=== PATIENT | male | born 1995 | race Two or more races ===

== ENCOUNTER 2017-03-28 23:37 | Emergency (ER) | payer MEDICAID ==
[~2017-03-28] VITALS: Ht 172.7 cm; Wt 71.7 kg
[~2017-03-28 23:37] MED LIST: INSLANTI SC; INSUPOW
[2017-03-28] MEDS ORDERED: diphenhdrAMINE HCL 25 MG CAP PO ONE (23:53)
[2017-03-29 00:01] VITALS: BP 135/95
[2017-03-29] MEDS ORDERED: diphenhdrAMINE HCL 25 MG CAP PO ONE (00:15)
== END 2017-03-29 01:13 | disposition left against medical advice (07) ==
LOC: ER 23:47
DX: T78.40XA Allergy, unspecified, initial encounter (principal); X58.XXXA Exposure to other specified factors, initial encounter; Z53.21 Procedure and treatment not carried out due to patient leaving prior to being seen by health care provider
CPT/HCPCS: 82962

== ENCOUNTER 2017-04-16 12:52 | Inpatient (IN) | payer MEDICAID ==
[~2017-04-16] VITALS: Ht 170.2 cm; Wt 61.2 kg
[2017-04-16] MEDS ORDERED: SODIUM CHLORIDE 0.9% 1,000 ML IV ONE ×2 (13:07→15:00)
[2017-04-16 14:07] LABS: Basophils # (auto) 0 uL; Basophils % (auto) 0.4 % (0.0-2.0); Eosinophils # (auto) 0 uL; Eosinophils % (auto) 0.2 % (0.0-7.0); Hematocrit 42.9 % (41.0-53.0); Hemoglobin 14.4 g/dL (13.5-17.5); Lymphocytes # (auto) 1.1 uL; Lymphocytes % (auto) 10.9 % (10.0-50.0); Mean Corpuscular Hemoglobin 31.1 pg (28.0-32.0); Mean Corpuscular Hgb Conc. 33.6 g/dL (32.0-36.0); Mean Corpuscular Volume 92.6 fL (80.0-100.0); Monocytes # (auto) 0.4 uL; Monocytes % (auto) 4.4 % (0.0-12.0); Neutrophils # (auto) 8.2 uL; Neutrophils % (auto) 84.1 % (37.0-80.0); Nucleated Red Blood Cells % 0.1 %; Platelet Count (auto) 232 10^3/uL (140-450); Red Cell Distribution Width 12.5 % (11.8-14.3); White Blood Cell 9.8 10^3/uL (4.4-10.8)
[2017-04-16 14:30] LABS: Albumin 3.6 g/dL (3.4-5.0); Bilirubin, Total 0.9 mg/dL (0.2-1.0); Calcium 8.1 mg/dL (8.5-10.1); Magnesium 1.7 mg/dL (1.6-2.6); Potassium 4.3 mmol/L (3.5-5.1); Total Protein 7.8 g/dL (6.4-8.2)
[2017-04-16 14:40] LABS: Urine RBC None Seen /hpf (0 - 3)
[2017-04-16] MEDS ORDERED: HYDROcodone-ACET 5/325MG TAB PO PRN (14:45)
[2017-04-16] MEDS ORDERED: NITROGLYCERIN 0.4 MG SL TAB SL PRN (14:45)
[2017-04-16] MEDS ORDERED: ONDANSETRON HCL 4 MG/2 ML VIAL IV PRN (14:45)
[2017-04-16] MEDS ORDERED: MORPHINE SULFATE 10 MG/ML INJ 1ML SDV IV PRN (14:45)
[2017-04-16] MEDS ORDERED: ACETAMINOPHEN 325 MG TAB PO PRN (14:45)
[2017-04-16] MEDS ORDERED: DOCUSATE SOD 100 MG CAP PO PRN (14:45)
[2017-04-16] MEDS ORDERED: TEMAZEPAM 15 MG CAP PO PRN (14:45)
[2017-04-16 14:52] LABS: Urine Bilirubin Negative (Negative); Urine Blood Negative /uL (Negative); Urine Color Yellow (Yellow); Urine Glucose 4+ mg/dL (Normal); Urine Ketone 4+ (Negative); Urine Nitrite Negative (Negative); Urine Urobilinogen Normal (Negative); Urine pH 5.5 (5.0-8.0)
[2017-04-16] MEDS ORDERED: HYDROmorphone HCL 2 MG/ML VL IV PRN (15:00)
[2017-04-16] MEDS ORDERED: DEXTROSE (50%) 50ML SYRG IV PRN (15:00)
[2017-04-16] MEDS ORDERED: FAMOTIDINE 20 MG TAB PO SCH (15:15)
[2017-04-16 15:42] VITALS: BP 131/66
[2017-04-16 16:00] LABS: Base Excess -4.8 mmol/L (-2.0-2.0); Blood 02Sat 97.6 % (96-100); Blood COHb 0.3 % (0.5-1.5); Blood MetHb 0.4 % (0.0-1.5); HCO3 18.6 mmol/L (22-26.0); HHb 2.4 % (0.0-5.0); MODE NASAL CANNULA; O2Hb 96.9 % (94.0-97.0); PCO2 30.3 mmHg (35.0-45.0); PCO2(T) 30.3 mmHg (35.0-45.0); Room 1019-ERT; Sample Type Arterial; pH 7.407 (7.350-7.450)
[2017-04-16] MEDS ORDERED: SODIUM CHLORIDE 0.9% 1,000 ML IV SCH (16:00)
[2017-04-16] MEDS ORDERED: ACCU-CHEK COMFORT CURVE STRIP VI SCH (17:00)
[2017-04-16] MEDS ORDERED: InsuLIN REG 1unit/0.01ml Soln (100units/ml) SC SCH ×2 (17:00→22:00)
[2017-04-17] MEDS ORDERED: INSULIN DETEMIR(LEVEMIR) 1unit/0.01ml Soln (100units/ml) SC SCH (07:00)
[2017-04-17] MEDS ORDERED: MULTIPLE VITAMIN TAB PO SCH (10:00)
== END 2017-04-16 17:20 | disposition left against medical advice (07) | DRG 816 ==
LOC: ER 12:52 → EDBD 12:52 → TELE 12:53
PROVIDERS: ADMIT Internal Medicine; ATTEND Internal Medicine
DX: T62.91XA Toxic effect of unspecified noxious substance eaten as food, accidental (unintentional), initial encounter (principal); E11.65 Type 2 diabetes mellitus with hyperglycemia; E86.0 Dehydration; Z53.21 Procedure and treatment not carried out due to patient leaving prior to being seen by health care provider; Z79.4 Long term (current) use of insulin; Z83.3 Family history of diabetes mellitus; Z88.1 Allergy status to other antibiotic agents; Z88.0 Allergy status to penicillin; Y92.89 Other specified places as the place of occurrence of the external cause
CPT/HCPCS: 36415; 36600; 71010; 80053; 81001; 82805; 82962; 83036; 83735; 85025; 94761; 96360; 96361

== ENCOUNTER 2017-05-22 15:36 | Emergency (ER) | payer MEDICAID ==
[~2017-05-22] VITALS: Ht 172.7 cm; Wt 70.3 kg
[2017-05-22 15:49] VITALS: BP 145/89
== END 2017-05-22 16:33 | disposition home or self-care (01) ==
LOC: ER 15:39
DX: E11.9 Type 2 diabetes mellitus without complications (principal); Z88.1 Allergy status to other antibiotic agents; Z88.0 Allergy status to penicillin; Z88.8 Allergy status to other drugs, medicaments and biological substances; Z76.0 Encounter for issue of repeat prescription; Z79.4 Long term (current) use of insulin; F17.210 Nicotine dependence, cigarettes, uncomplicated

== ENCOUNTER 2017-07-20 20:05 | Emergency (ER) | payer MEDICAID ==
[~2017-07-20] VITALS: Ht 170.2 cm; Wt 56.7 kg
[2017-07-20 20:54] LABS: Basophils # (auto) 0.1 uL; Basophils % (auto) 0.4 % (0.0-2.0); Eosinophils # (auto) 0 uL; Eosinophils % (auto) 0.1 % (0.0-7.0); Hematocrit 43.7 % (41.0-53.0); Hemoglobin 14.8 g/dL (13.5-17.5); Lymphocytes # (auto) 1.6 uL; Lymphocytes % (auto) 12.9 % (10.0-50.0); Mean Corpuscular Hemoglobin 30.6 pg (28.0-32.0); Mean Corpuscular Hgb Conc. 33.9 g/dL (32.0-36.0); Mean Corpuscular Volume 90.4 fL (80.0-100.0); Monocytes # (auto) 0.6 uL; Monocytes % (auto) 4.6 % (0.0-12.0); Neutrophils # (auto) 10.2 uL; Platelet Count (auto) 238 10^3/uL (140-450); Red Blood Cells 4.84 10^6/uL (4.5-5.90); Red Cell Distribution Width 12.1 % (11.8-14.3); White Blood Cell 12.5 10^3/uL (4.4-10.8)
[2017-07-20 21:14] LABS: Urine Bacteria NONE SEEN /hpf (None Seen); Urine Blood Negative /uL (Negative); Urine Specific Gravity 1.027 (1.001-1.035); Urine WBC <1 /hpf (0 - 3)
[2017-07-20 21:29] LABS: BUN/Creatinine Ratio 12.3; Bilirubin, Total 0.9 mg/dL (0.2-1.0); Calcium 8.6 mg/dL (8.5-10.1); Magnesium 2.1 mg/dL (1.6-2.6); Potassium 3.7 mmol/L (3.5-5.1); Total Protein 8.5 g/dL (6.4-8.2)
[2017-07-20 21:29] LABS: Alcohol, Urine < 3.0 mg/dL (0-5); Amphetamine Screen, Urine NEGATIVE (NEGATIVE); Barbiturate Scree,Urine NEGATIVE (NEGATIVE); Benzodiazephine Screen, Urine NEGATIVE (NEGATIVE); Cannabinoid Screen, Urine POSITIVE (NEGATIVE); Cocaine Screen, Urine NEGATIVE (NEGATIVE); Opiate Scree,Urine NEGATIVE (NEGATIVE); Phencyclidine Screen, Urine NEGATIVE (NEGATIVE)
[2017-07-20] MEDS ORDERED: MORPHINE SULFATE 10 MG/ML INJ 1ML SDV IV ONE (21:30)
[2017-07-20] MEDS ORDERED: InsuLIN REG 1unit/0.01ml Soln (100units/ml) IV ONE (21:30)
[2017-07-20] MEDS ORDERED: ONDANSETRON HCL 4 MG/2 ML VIAL IV ONE (21:30)
[2017-07-20] MEDS ORDERED: MORPHINE SULFATE 4 MG/ML SYR/VIAL ONE (21:42)
[2017-07-20 23:11] VITALS: BP 118/68
== END 2017-07-20 23:15 | disposition home or self-care (01) ==
LOC: EDBD 20:05 → ER 20:05
DX: R07.9 Chest pain, unspecified (principal); R68.84 Jaw pain; E11.65 Type 2 diabetes mellitus with hyperglycemia; E78.5 Hyperlipidemia, unspecified; F17.210 Nicotine dependence, cigarettes, uncomplicated; Z79.4 Long term (current) use of insulin; Z88.0 Allergy status to penicillin; Z88.1 Allergy status to other antibiotic agents; Z88.8 Allergy status to other drugs, medicaments and biological substances
CPT/HCPCS: 36415; 71045; 80053; 80307; 81001; 82962; 83735; 85025; 93005; 96374; 96375; 99285; J2270; J2405

== ENCOUNTER 2017-07-22 14:36 | Emergency (ER) | payer MEDICAID ==
[~2017-07-22] VITALS: Ht 177.8 cm; Wt 68.0 kg
[2017-07-22 14:48] VITALS: BP 129/95
[2017-07-22] MEDS ORDERED: ONDANSETRON HCL 4 MG/2 ML VIAL ONE (21:07)
== END 2017-07-22 18:06 | disposition left against medical advice (07) ==
LOC: EDBD 14:36 → ER 14:36
DX: R53.1 Weakness (principal); R11.2 Nausea with vomiting, unspecified; Z53.21 Procedure and treatment not carried out due to patient leaving prior to being seen by health care provider
CPT/HCPCS: J2405

== ENCOUNTER 2017-07-22 20:57 | Inpatient (IN) | payer MEDICAID ==
[~2017-07-22] VITALS: Ht 172.7 cm; Wt 57.5 kg
[2017-07-22] MEDS ORDERED: ONDANSETRON HCL 4 MG/2 ML VIAL IV ONE (21:30)
[2017-07-22] MEDS ORDERED: SODIUM CHLORIDE 0.9% 1,000 ML IV ONE (21:30)
[2017-07-22 21:50] LABS: Basophils # (auto) 0 uL; Basophils % (auto) 0.4 % (0.0-2.0); Eosinophils # (auto) 0 uL; Eosinophils % (auto) 0.5 % (0.0-7.0); Hematocrit 40.6 % (41.0-53.0); Hemoglobin 13.5 g/dL (13.5-17.5); Lymphocytes % (auto) 22.1 % (10.0-50.0); Mean Corpuscular Hgb Conc. 33.4 g/dL (32.0-36.0); Mean Corpuscular Volume 92.9 fL (80.0-100.0); Monocytes # (auto) 0.5 uL; Monocytes % (auto) 5.2 % (0.0-12.0); Neutrophils # (auto) 6.7 uL; Neutrophils % (auto) 71.8 % (37.0-80.0); Platelet Count (auto) 252 10^3/uL (140-450); Red Blood Cells 4.37 10^6/uL (4.5-5.90); Red Cell Distribution Width 12.3 % (11.8-14.3); White Blood Cell 9.3 10^3/uL (4.4-10.8)
[2017-07-22] MEDS ORDERED: PROMETHAZINE HCL 25 MG/ML 1ML IV ONE ×2 (22:00→23:30)
[2017-07-22 22:07] LABS: Albumin 3.7 g/dL (3.4-5.0); BUN/Creatinine Ratio 12.1; Calcium 7.7 mg/dL (8.5-10.1); Potassium 3.4 mmol/L (3.5-5.1); Total Protein 7.4 g/dL (6.4-8.2)
[2017-07-22] MEDS ORDERED: InsuLIN R (HUMAN) 100 UNITS in SODIUM CHL 0.9% 99 ML IV SCH (22:21)
[2017-07-22] MEDS ORDERED: ACCU-CHEK COMFORT CURVE STRIP VI SCH (22:30)
[2017-07-22] MEDS ORDERED: DEXTROSE (50%) 50ML SYRG IV PRN (22:30)
[2017-07-23] MEDS ORDERED: NITROGLYCERIN 0.4 MG SL TAB SL PRN
[2017-07-23] MEDS ORDERED: TEMAZEPAM 15 MG CAP PO PRN
[2017-07-23] MEDS ORDERED: DEXTROSE (50%) 50ML SYRG IV PRN
[2017-07-23] MEDS ORDERED: MORPHINE SULF INJ 2 MG/ML SYRINGE 1ML IV PRN
[2017-07-23] MEDS: InsuLIN R (HUMAN) 100 UNITS in SODIUM CHL 0.9% 99 ML IV SCH ×2 (00:24→23:55)
[2017-07-23] MEDS: ACCU-CHEK COMFORT CURVE STRIP VI SCH ×16 (00:24→22:28)
[2017-07-23 00:31] LABS: BUN/Creatinine Ratio 11.1; Calcium 8.2 mg/dL (8.5-10.1); Potassium 4.5 mmol/L (3.5-5.1)
[2017-07-23] MEDS: ONDANSETRON HCL 4 MG/2 ML VIAL IV PRN ×5 (02:22→19:10)
[2017-07-23] MEDS ORDERED: SODIUM CHLORIDE 0.9% 500 ML IV ONE (03:45)
[2017-07-23] MEDS ORDERED: SODIUM CHLORIDE 0.9% 1,000 ML IV SCH (03:55)
[2017-07-23] MEDS ORDERED: PROMETHAZINE HCL 25 MG/ML 1ML IV ONE (04:15)
[2017-07-23] MEDS ORDERED: ALUM & MAG HYDROX-SIMETH LIQ(MAALOX) 30 ML PO ONE (04:45)
[2017-07-23] MEDS ORDERED: DONNATAL 5ml ORAL Elix (BELLADONNA ALK-PHENOBARB) PO ONE (04:45)
[2017-07-23] MEDS ORDERED: LIDOCAINE VISCOUS 2% 15ML UD PO ONE (04:45)
[2017-07-23] MEDS: SODIUM CHLORIDE 0.9% 1,000 ML IV SCH ×3 (05:45→19:16)
[2017-07-23 05:55] LABS: Basophils # (auto) 0 uL; Basophils % (auto) 0.1 % (0.0-2.0); Eosinophils # (auto) 0 uL; Hematocrit 43.2 % (41.0-53.0); Hemoglobin 14.5 g/dL (13.5-17.5); Lymphocytes # (auto) 1.2 uL; Lymphocytes % (auto) 4.8 % (10.0-50.0); Mean Corpuscular Hemoglobin 30.6 pg (28.0-32.0); Mean Corpuscular Hgb Conc. 33.7 g/dL (32.0-36.0); Mean Corpuscular Volume 90.9 fL (80.0-100.0); Monocytes # (auto) 0.9 uL; Monocytes % (auto) 3.7 % (0.0-12.0); Neutrophils # (auto) 22.7 uL; Neutrophils % (auto) 91.4 % (37.0-80.0); Platelet Count (auto) 276 10^3/uL (140-450); Red Blood Cells 4.75 10^6/uL (4.5-5.90); Red Cell Distribution Width 12.1 % (11.8-14.3); White Blood Cell 24.9 10^3/uL (4.4-10.8)
[2017-07-23 06:21] LABS: Albumin 3.9 g/dL (3.4-5.0); BUN/Creatinine Ratio 10.3; Bilirubin, Total 0.6 mg/dL (0.2-1.0); Calcium 8.2 mg/dL (8.5-10.1); Total Protein 8.3 g/dL (6.4-8.2)
[2017-07-23] MEDS: PANTOPRAZOLE 40 MG/10 ML VIAL IV SCH (09:23)
[2017-07-23] MEDS ORDERED: INSULIN LANTUS (GLARGINE) 1 /0.01ml (100units/ml) SC ONE (12:45)
[2017-07-23 13:53] LABS: Calcium 8.9 mg/dL (8.5-10.1); Potassium 3.9 mmol/L (3.5-5.1)
[2017-07-23 18:20] LABS: Potassium 3.9 mmol/L (3.5-5.1)
[2017-07-23 18:21] LABS: BUN/Creatinine Ratio 8.2; Calcium 8.5 mg/dL (8.5-10.1)
[2017-07-23] MEDS: HYDROcodone-ACET 5/325MG TAB PO PRN (19:10)
[2017-07-23 22:50] LABS: Urine Bacteria NONE SEEN /hpf (None Seen); Urine Blood TRACE /uL (Negative); Urine Hyaline Cast FEW /lpf (0 - 2); Urine Mucus FEW (None Seen); Urine Specific Gravity 1.025 (1.001-1.035); Urine WBC 2 /hpf (0 - 3)
[2017-07-23 23:02] LABS: Alcohol, Urine < 3.0 mg/dL (0-5); Amphetamine Screen, Urine NEGATIVE (NEGATIVE); Barbiturate Scree,Urine NEGATIVE (NEGATIVE); Benzodiazephine Screen, Urine NEGATIVE (NEGATIVE); Cannabinoid Screen, Urine POSITIVE (NEGATIVE); Cocaine Screen, Urine NEGATIVE (NEGATIVE); Opiate Scree,Urine NEGATIVE (NEGATIVE); Phencyclidine Screen, Urine NEGATIVE (NEGATIVE)
[2017-07-24] MEDS ORDERED: PROMETHAZINE HCL 25 MG/ML 1ML IV ONE (00:50)
[2017-07-24] MEDS ORDERED: PROMETHAZINE HCL 25 MG/ML 1ML ONE (00:58)
[2017-07-24] MEDS: ACCU-CHEK COMFORT CURVE STRIP VI SCH ×14 (01:50→22:26)
[2017-07-24] MEDS: SODIUM CHLORIDE 0.9% 1,000 ML IV SCH ×3 (01:55→20:00)
[2017-07-24 07:46] LABS: Basophils # (auto) 0 uL; Basophils % (auto) 0.2 % (0.0-2.0); Eosinophils # (auto) 0 uL; Eosinophils % (auto) 0.1 % (0.0-7.0); Hematocrit 37.6 % (41.0-53.0); Hemoglobin 12.8 g/dL (13.5-17.5); Lymphocytes # (auto) 1.9 uL; Lymphocytes % (auto) 9.7 % (10.0-50.0); Mean Corpuscular Hemoglobin 30.5 pg (28.0-32.0); Mean Corpuscular Volume 89.7 fL (80.0-100.0); Monocytes # (auto) 1.1 uL; Monocytes % (auto) 5.5 % (0.0-12.0); Neutrophils # (auto) 16.3 uL; Neutrophils % (auto) 84.5 % (37.0-80.0); Nucleated Red Blood Cells % 0.1 %; Platelet Count (auto) 259 10^3/uL (140-450); Red Blood Cells 4.19 10^6/uL (4.5-5.90); Red Cell Distribution Width 12.1 % (11.8-14.3); White Blood Cell 19.2 10^3/uL (4.4-10.8)
[2017-07-24 08:07] LABS: Albumin 3.2 g/dL (3.4-5.0); BUN/Creatinine Ratio 7.8; Bilirubin, Total 0.7 mg/dL (0.2-1.0); Magnesium 1.9 mg/dL (1.6-2.6); Potassium 3.3 mmol/L (3.5-5.1); Total Protein 6.9 g/dL (6.4-8.2)
[2017-07-24] MEDS: PROMETHAZINE HCL 25 MG/ML 1ML IV PRN ×3 (08:40→22:26)
[2017-07-24] MEDS: PANTOPRAZOLE 40 MG/10 ML VIAL IV SCH (09:22)
[2017-07-24] MEDS ORDERED: MAGNESIUM SULFATE 1GM/100ML 100 ML IV ONE (10:00)
[2017-07-24] MEDS ORDERED: INSULIN LANTUS (GLARGINE) 1 /0.01ml (100units/ml) SC ONE (10:00)
[2017-07-24] MEDS ORDERED: SODIUM CHLORIDE 0.9% 1,000 ML IV SCH (10:00)
[2017-07-24] MEDS: POTASSIUM CHL 20MEQ/100ML 100 ML IV SCH ×2 (11:24→13:00)
[2017-07-24] MEDS ORDERED: DEXTROSE (50%) 50ML SYRG IV PRN ×2 (11:45→14:00)
[2017-07-24] MEDS: InsuLIN REG 1unit/0.01ml Soln (100units/ml) SC SCH ×2 (12:00→14:05)
[2017-07-24] MEDS: METOCLOPRAMIDE HCL 5MG/ml INJ 2ml VIAL IV SCH (12:41)
[2017-07-24 13:37] LABS: BUN/Creatinine Ratio 6.8; Calcium 7.8 mg/dL (8.5-10.1); Potassium 3.5 mmol/L (3.5-5.1)
[2017-07-24] MEDS: InsuLIN R (HUMAN) 100 UNITS in SODIUM CHL 0.9% 99 ML IV SCH (14:08)
[2017-07-24] MEDS ORDERED: ACCU-CHEK COMFORT CURVE STRIP VI SCH (15:00)
[2017-07-24] MEDS ORDERED: SODIUM CHLORIDE 0.9% 500 ML IV ONE (16:15)
[2017-07-24] MEDS: HYDROcodone-ACET 5/325MG TAB PO PRN ×2 (17:21→22:27)
[2017-07-24 20:40] LABS: Calcium 7.6 mg/dL (8.5-10.1); Potassium 3.3 mmol/L (3.5-5.1)
[2017-07-25] MEDS: METOCLOPRAMIDE HCL 5MG/ml INJ 2ml VIAL IV SCH ×4 (00:16→18:07)
[2017-07-25] MEDS: ACCU-CHEK COMFORT CURVE STRIP VI SCH ×10 (02:03→21:09)
[2017-07-25 02:37] LABS: Calcium 7.8 mg/dL (8.5-10.1)
[2017-07-25] MEDS: SODIUM CHLORIDE 0.9% 1,000 ML IV SCH ×3 (02:38→13:23)
[2017-07-25] MEDS: PROMETHAZINE HCL 25 MG/ML 1ML IV PRN ×2 (04:30→10:18)
[2017-07-25 05:44] LABS: Basophils # (auto) 0 uL; Basophils % (auto) 0.2 % (0.0-2.0); Eosinophils # (auto) 0 uL; Eosinophils % (auto) 0.3 % (0.0-7.0); Hematocrit 35.3 % (41.0-53.0); Lymphocytes # (auto) 0.9 uL; Lymphocytes % (auto) 7.1 % (10.0-50.0); Mean Corpuscular Hemoglobin 30.5 pg (28.0-32.0); Mean Corpuscular Hgb Conc. 33.9 g/dL (32.0-36.0); Mean Corpuscular Volume 89.8 fL (80.0-100.0); Monocytes # (auto) 0.7 uL; Monocytes % (auto) 5.3 % (0.0-12.0); Neutrophils # (auto) 11.5 uL; Neutrophils % (auto) 87.1 % (37.0-80.0); Platelet Count (auto) 202 10^3/uL (140-450); Red Blood Cells 3.93 10^6/uL (4.5-5.90); Red Cell Distribution Width 12.1 % (11.8-14.3); White Blood Cell 13.2 10^3/uL (4.4-10.8)
[2017-07-25 06:10] LABS: BUN/Creatinine Ratio 4.3; Calcium 7.1 mg/dL (8.5-10.1); Magnesium 1.8 mg/dL (1.6-2.6)
[2017-07-25] MEDS: InsuLIN R (HUMAN) 100 UNITS in SODIUM CHL 0.9% 99 ML IV SCH ×2 (08:06→10:16)
[2017-07-25] MEDS: PANTOPRAZOLE 40 MG/10 ML VIAL IV SCH (10:18)
[2017-07-25] MEDS ORDERED: INSULIN LANTUS (GLARGINE) 1 /0.01ml (100units/ml) SC ONE (11:00)
[2017-07-25] MEDS ORDERED: POTASSIUM CHL 10% (20 MEQ/15ML) 15ml ORAL SOLN PO ONE (12:15)
[2017-07-25] MEDS ORDERED: MAGNESIUM SULFATE 1GM/100ML 100 ML IV ONE (12:15)
[2017-07-25] MEDS ORDERED: DEXTROSE (50%) 50ML SYRG IV PRN ×2 (12:30)
[2017-07-25] MEDS ORDERED: InsuLIN REG 1unit/0.01ml Soln (100units/ml) SC SCH ×2 (14:00→16:00)
[2017-07-25] MEDS ORDERED: InsuLIN REG 1unit/0.01ml Soln (100units/ml) SC ONE (14:00)
[2017-07-25] MEDS ORDERED: ACCU-CHEK COMFORT CURVE STRIP VI SCH ×2 (14:00)
[2017-07-25 16:22] LABS: BUN/Creatinine Ratio 3.3; Calcium 7.6 mg/dL (8.5-10.1)
[2017-07-25] MEDS: InsuLIN REG 1unit/0.01ml Soln (100units/ml) SC SCH ×2 (18:00→21:10)
[2017-07-25] MEDS: ACETAMINOPHEN 325 MG TAB PO PRN (21:11)
[2017-07-26] VITALS (7 sets, daily range): BP systolic 126–145; BP diastolic 68–84
[2017-07-26] MEDS: ACCU-CHEK COMFORT CURVE STRIP VI SCH ×6 (00:09→22:05)
[2017-07-26] MEDS: METOCLOPRAMIDE HCL 5MG/ml INJ 2ml VIAL IV SCH ×2 (00:09→06:00)
[2017-07-26] MEDS: InsuLIN REG 1unit/0.01ml Soln (100units/ml) SC SCH ×6 (00:14→22:06)
[2017-07-26] MEDS: SODIUM CHLORIDE 0.9% 1,000 ML IV SCH ×2 (00:14→12:30)
[2017-07-26 06:35] LABS: BUN/Creatinine Ratio 2.4; Calcium 7.7 mg/dL (8.5-10.1); Magnesium 2.1 mg/dL (1.6-2.6)
[2017-07-26 06:39] LABS: Potassium 2.7 mmol/L (3.5-5.1)
[2017-07-26 06:48] LABS: Basophils # (auto) 0 uL; Basophils % (auto) 0.4 % (0.0-2.0); Eosinophils # (auto) 0.2 uL; Eosinophils % (auto) 2.1 % (0.0-7.0); Hematocrit 36.9 % (41.0-53.0); Hemoglobin 12.8 g/dL (13.5-17.5); Lymphocytes # (auto) 0.6 uL; Lymphocytes % (auto) 7.8 % (10.0-50.0); Mean Corpuscular Hgb Conc. 34.8 g/dL (32.0-36.0); Mean Corpuscular Volume 89.2 fL (80.0-100.0); Monocytes # (auto) 0.6 uL; Monocytes % (auto) 7.2 % (0.0-12.0); Neutrophils # (auto) 6.6 uL; Neutrophils % (auto) 82.5 % (37.0-80.0); Platelet Count (auto) 182 10^3/uL (140-450); Red Blood Cells 4.14 10^6/uL (4.5-5.90); Red Cell Distribution Width 12.1 % (11.8-14.3)
[2017-07-26] MEDS: INSULIN LANTUS (GLARGINE) 1 /0.01ml (100units/ml) SC SCH (07:00)
[2017-07-26] MEDS ORDERED: POTASSIUM CHLORIDE 40 MEQ, LIDOCAINE 1% (LOCAL ANESTH.) 4 ML in SODIUM CHL 0.9% 100 ML IV ONE (07:30)
[2017-07-26] MEDS: PROMETHAZINE HCL 25 MG/ML 1ML IV PRN (09:57)
[2017-07-26] MEDS: PANTOPRAZOLE 40 MG/10 ML VIAL IV SCH (09:57)
[2017-07-26] MEDS: LORATADINE 10 MG TAB PO SCH (09:58)
[2017-07-26] MEDS ORDERED: POTASSIUM CHL 20 Meq TABLET PO ONE ×2 (10:00→12:30)
[2017-07-26] MEDS: METOCLOPRAMIDE HCL 10 MG TAB PO SCH ×2 (13:36→17:52)
[2017-07-26] MEDS: ACETAMINOPHEN 325 MG TAB PO PRN (15:17)
[2017-07-26] MEDS: SALINE 0.65 % NASAL SPRAY 45ML BOTTLE EACHNOSTRI SCH (22:05)
[2017-07-27] MEDS: METOCLOPRAMIDE HCL 10 MG TAB PO SCH ×4 (00:18→17:54)
[2017-07-27] MEDS: ACCU-CHEK COMFORT CURVE STRIP VI SCH ×6 (01:57→21:59)
[2017-07-27] MEDS: InsuLIN REG 1unit/0.01ml Soln (100units/ml) SC SCH ×6 (02:03→21:59)
[2017-07-27 04:51] VITALS: BP 140/83
[2017-07-27] MEDS: SODIUM CHLORIDE 0.9% 1,000 ML IV SCH ×2 (05:02→23:15)
[2017-07-27] MEDS: HYDROcodone-ACET 5/325MG TAB PO PRN (06:19)
[2017-07-27] MEDS: INSULIN LANTUS (GLARGINE) 1 /0.01ml (100units/ml) SC SCH (06:43)
[2017-07-27 07:11] LABS: Basophils # (auto) 0.1 uL; Basophils % (auto) 0.8 % (0.0-2.0); Eosinophils # (auto) 0.1 uL; Eosinophils % (auto) 1.2 % (0.0-7.0); Hematocrit 39.4 % (41.0-53.0); Hemoglobin 13.5 g/dL (13.5-17.5); Mean Corpuscular Hemoglobin 30.5 pg (28.0-32.0); Mean Corpuscular Hgb Conc. 34.3 g/dL (32.0-36.0); Mean Corpuscular Volume 89.1 fL (80.0-100.0); Monocytes # (auto) 0.4 uL; Monocytes % (auto) 6.6 % (0.0-12.0); Neutrophils # (auto) 5.1 uL; Neutrophils % (auto) 76.4 % (37.0-80.0); Nucleated Red Blood Cells % 0.1 %; Platelet Count (auto) 179 10^3/uL (140-450); Red Blood Cells 4.42 10^6/uL (4.5-5.90); Red Cell Distribution Width 12.3 % (11.8-14.3); White Blood Cell 6.7 10^3/uL (4.4-10.8)
[2017-07-27 07:27] LABS: BUN/Creatinine Ratio 6.7; Calcium 7.8 mg/dL (8.5-10.1)
[2017-07-27 07:36] LABS: Potassium 2.9 mmol/L (3.5-5.1)
[2017-07-27 09:00] VITALS: BP 140/80
[2017-07-27] MEDS: PANTOPRAZOLE 40 MG/10 ML VIAL IV SCH (09:19)
[2017-07-27] MEDS: SALINE 0.65 % NASAL SPRAY 45ML BOTTLE EACHNOSTRI SCH ×3 (09:19→21:59)
[2017-07-27] MEDS: LORATADINE 10 MG TAB PO SCH (09:19)
[2017-07-27 13:00] VITALS: BP 147/97
[2017-07-27] MEDS: ACETAMINOPHEN 325 MG TAB PO PRN (14:08)
[2017-07-27] MEDS: POTASSIUM CHL 20 Meq TABLET PO SCH ×2 (16:32→21:59)
[2017-07-27 17:00] VITALS: BP 134/71
[2017-07-27 20:00] VITALS: BP 128/74
[2017-07-27 22:25] VITALS: BP 128/74
[2017-07-28] MEDS: METOCLOPRAMIDE HCL 10 MG TAB PO SCH ×3 (00:39→12:00)
[2017-07-28] MEDS: HYDROcodone-ACET 5/325MG TAB PO PRN (00:40)
[2017-07-28] MEDS: ACCU-CHEK COMFORT CURVE STRIP VI SCH ×3 (02:18→10:00)
[2017-07-28] MEDS: InsuLIN REG 1unit/0.01ml Soln (100units/ml) SC SCH ×3 (02:19→10:41)
[2017-07-28 05:07] VITALS: BP 131/69
[2017-07-28 05:58] LABS: Basophils # (auto) 0 uL; Basophils % (auto) 0.2 % (0.0-2.0); Eosinophils # (auto) 0.1 uL; Eosinophils % (auto) 0.9 % (0.0-7.0); Hematocrit 37.1 % (41.0-53.0); Hemoglobin 12.9 g/dL (13.5-17.5); Lymphocytes # (auto) 1.6 uL; Lymphocytes % (auto) 24.9 % (10.0-50.0); Mean Corpuscular Hemoglobin 30.9 pg (28.0-32.0); Mean Corpuscular Hgb Conc. 34.7 g/dL (32.0-36.0); Mean Corpuscular Volume 88.8 fL (80.0-100.0); Monocytes # (auto) 0.7 uL; Monocytes % (auto) 11.6 % (0.0-12.0); Neutrophils % (auto) 62.4 % (37.0-80.0); Nucleated Red Blood Cells % 0.1 %; Platelet Count (auto) 192 10^3/uL (140-450); Red Blood Cells 4.17 10^6/uL (4.5-5.90); Red Cell Distribution Width 11.9 % (11.8-14.3); White Blood Cell 6.3 10^3/uL (4.4-10.8)
[2017-07-28 06:08] LABS: BUN/Creatinine Ratio 10.5; Calcium 7.8 mg/dL (8.5-10.1)
[2017-07-28] MEDS: INSULIN LANTUS (GLARGINE) 1 /0.01ml (100units/ml) SC SCH (06:47)
[2017-07-28 08:48] VITALS: BP 147/96
[2017-07-28] MEDS: SALINE 0.65 % NASAL SPRAY 45ML BOTTLE EACHNOSTRI SCH (10:00)
[2017-07-28] MEDS: POTASSIUM CHL 20 Meq TABLET PO SCH (10:40)
[2017-07-28] MEDS: PANTOPRAZOLE 40 MG/10 ML VIAL IV SCH (10:40)
[2017-07-28] MEDS: LORATADINE 10 MG TAB PO SCH (10:40)
[2017-07-28] MEDS: ACETAMINOPHEN 325 MG TAB PO PRN (10:56)
[2017-07-28 11:53] VITALS: BP 132/84
[2017-07-28] MEDS ORDERED: SODIUM CHLORIDE 0.9% 1,000 ML IV SCH (12:00)
== END 2017-07-28 12:40 | disposition left against medical advice (07) | DRG 420 ==
LOC: EDBD 20:57 → ER 20:57 → TELE 20:58 → TELE-EAST 07-25 17:49
PROVIDERS: ADMIT Nurse Practitioner; ATTEND Internal Medicine
DX: E10.10 Type 1 diabetes mellitus with ketoacidosis without coma (principal); N17.0 Acute kidney failure with tubular necrosis; E86.0 Dehydration; Z91.19 Patient's noncompliance with other medical treatment and regimen; E87.6 Hypokalemia; F17.210 Nicotine dependence, cigarettes, uncomplicated; K29.70 Gastritis, unspecified, without bleeding; D72.829 Elevated white blood cell count, unspecified; R63.0 Anorexia; F12.10 Cannabis abuse, uncomplicated; E78.5 Hyperlipidemia, unspecified; Z53.21 Procedure and treatment not carried out due to patient leaving prior to being seen by health care provider; Z88.1 Allergy status to other antibiotic agents; Z88.0 Allergy status to penicillin; Z68.1 Body mass index [BMI] 19.9 or less, adult; Z88.8 Allergy status to other drugs, medicaments and biological substances; Z83.3 Family history of diabetes mellitus
CPT/HCPCS: 36415; 36600; 71045; 80048; 80053; 80061; 80307; 80320; 81001; 82010; 82805; 82962; 83036; 83735; 84132; 85025; 87040; 93005; 96361; 96365; 96367; 96375; C9113; J1815; J2001; J2405; J3480

== ENCOUNTER 2020-07-25 19:34 | Inpatient (IN) | payer MEDICAID ==
[~2020-07-25] VITALS: Ht 172.7 cm; Wt 56.8 kg
[2020-07-25] MEDS: SODIUM CHLORIDE 0.9% 1,000 ML IV SCH ×2 (01:40→22:54)
[2020-07-25] MEDS ORDERED: ONDANSETRON HCL 4 MG/2 ML VIAL IV ONE ×2 (19:45→22:30)
[2020-07-25] MEDS ORDERED: SODIUM CHLORIDE 0.9% 1,000 ML IV ONE (19:45)
[2020-07-25] MEDS ORDERED: ONDANSETRON HCL 4 MG/2 ML VIAL ONE (20:03)
[2020-07-25 20:56] LABS: Basophils # (auto) 0.1 10 ^3/uL (0-0.2); Basophils % (auto) 0.6 % (0.0-2.0); Eosinophils # (auto) 0.1 10 ^3/uL (0-0.8); Eosinophils % (auto) 0.4 % (0.0-7.0); Hematocrit 43.9 % (41.0-53.0); Hemoglobin 14.8 g/dL (13.5-17.5); Lymphocytes # (auto) 2.2 10 ^3/uL (0.4-5.4); Lymphocytes % (auto) 15.9 % (10.0-50.0); Mean Corpuscular Hemoglobin 31.5 pg (28.0-32.0); Mean Corpuscular Hgb Conc. 33.7 g/dL (32.0-36.0); Mean Corpuscular Volume 93.4 fL (80.0-100.0); Monocytes # (auto) 0.6 10 ^3/uL (0-1.3); Monocytes % (auto) 4.1 % (0.0-12.0); Platelet Count (auto) 394 10^3/uL (140-450); Red Cell Distribution Width 13.2 % (11.8-14.3)
[2020-07-25 21:01] LABS: Alanine Aminotransferase 133 U/L (16-61); Albumin 4.4 g/dL (3.4-5.0); Anion Gap 21 (5-15); Aspartate Aminotransferase 95 U/L (15-37); Blood Urea Nitrogen 22 mg/dL (7-18); Calcium 9.4 mg/dL (8.5-10.1); Carbon Dioxide 17 mmol/L (21-32); Chloride 92 mmol/L (98-107); GFR African American 74 mL/min; GFR Non-African American 61 mL/min; Magnesium 2.1 mg/dL (1.6-2.6); Potassium 3.9 mmol/L (3.5-5.1); Sodium 130 mmol/L (136-145)
[2020-07-25 21:04] LABS: Alkaline Phosphatase 194 U/L (45-117); Bilirubin, Total 1.2 mg/dL (0.2-1.0); Total Protein 9.6 g/dL (6.4-8.2)
[2020-07-25 21:31] LABS: Glucose 543 mg/dL (74-106)
[2020-07-25] MEDS ORDERED: INSULIN LANTUS (GLARGINE) 1 /0.01ml (100units/ml) SC ONE (21:45)
[2020-07-25] MEDS ORDERED: DEXTROSE (50%) 50ML SYRG IV PRN (21:45)
[2020-07-25] MEDS ORDERED: InsuLIN REG 1unit/0.01ml Soln (100units/ml) ONE (22:30)
[2020-07-25] MEDS: InsuLIN R (HUMAN) 100 UNITS in SODIUM CHL 0.9% 99 ML IV SCH ×2 (22:52→23:57)
[2020-07-25] MEDS: ACCU-CHEK COMFORT CURVE STRIP VI SCH ×2 (22:53→23:57)
[2020-07-25 23:09] LABS: BUN/Creatinine Ratio 18.6; Potassium 3.7 mmol/L (3.5-5.1)
[2020-07-26] MEDS ORDERED: NITROGLYCERIN 0.4 MG SL TAB SL PRN (00:30)
[2020-07-26] MEDS ORDERED: MORPHINE SULF INJ 2 MG/ML SYRINGE 1ML IV PRN (00:30)
[2020-07-26] MEDS ORDERED: DEXTROSE (50%) 50ML SYRG IV PRN ×2 (00:45→11:45)
[2020-07-26] MEDS: InsuLIN R (HUMAN) 100 UNITS in SODIUM CHL 0.9% 99 ML IV SCH ×4 (01:10→04:36)
[2020-07-26] MEDS: POTASSIUM CHL 20MEQ/100ML 100 ML IV SCH ×2 (01:12→04:22)
[2020-07-26] MEDS: D5W/SOD CHL 0.45%/KCL 20MEQ 1,000 ML IV SCH ×3 (01:39→14:05)
[2020-07-26] MEDS: ACCU-CHEK COMFORT CURVE STRIP VI SCH ×12 (01:39→20:00)
[2020-07-26 04:01] LABS: Calcium 8.8 mg/dL (8.5-10.1); Potassium 4.1 mmol/L (3.5-5.1)
[2020-07-26 04:03] LABS: BUN/Creatinine Ratio 16.8
[2020-07-26] MEDS: ONDANSETRON HCL 4 MG/2 ML VIAL IV PRN ×2 (06:25→10:51)
[2020-07-26] MEDS: SODIUM CHLORIDE 0.9% 1,000 ML IV SCH ×3 (06:38→20:05)
[2020-07-26 08:06] LABS: Basophils # (auto) 0.1 10 ^3/uL (0-0.2); Basophils % (auto) 0.4 % (0.0-2.0); Eosinophils # (auto) 0 10 ^3/uL (0-0.8); Eosinophils % (auto) 0.1 % (0.0-7.0); Hematocrit 35.2 % (41.0-53.0); Lymphocytes # (auto) 1.3 10 ^3/uL (0.4-5.4); Lymphocytes % (auto) 10.5 % (10.0-50.0); Mean Corpuscular Hemoglobin 31.1 pg (28.0-32.0); Mean Corpuscular Volume 91.4 fL (80.0-100.0); Monocytes # (auto) 0.6 10 ^3/uL (0-1.3); Monocytes % (auto) 4.6 % (0.0-12.0); Neutrophils # (auto) 10.4 10 ^3/uL (1.6-8.6); Neutrophils % (auto) 84.4 % (37.0-80.0); Platelet Count (auto) 323 10^3/uL (140-450); Red Blood Cells 3.85 10^6/uL (4.5-5.90); Red Cell Distribution Width 13.4 % (11.8-14.3); White Blood Cell 12.4 10^3/uL (4.4-10.8)
[2020-07-26 08:27] LABS: Calcium 8.3 mg/dL (8.5-10.1); Potassium 4.1 mmol/L (3.5-5.1)
[2020-07-26] MEDS ORDERED: INSU100I27 SC (11:27)
[2020-07-26] MEDS ORDERED: METO25TA93 PO (11:27)
[2020-07-26] MEDS ORDERED: INSLISPI SC (11:34)
[2020-07-26] MEDS ORDERED: INSULIN LANTUS (GLARGINE) 1 /0.01ml (100units/ml) SC ONE (11:45)
[2020-07-26] MEDS: InsuLIN REG 1unit/0.01ml Soln (100units/ml) SC SCH ×2 (14:10→20:34)
[2020-07-26] MEDS ORDERED: ACETAMINOPHEN 650 MG RECT SUPP PR PRN (15:00)
[2020-07-26] MEDS ORDERED: ACETAMINOPHEN 325 MG TAB PO PRN (15:15)
[2020-07-26 20:13] LABS: BUN/Creatinine Ratio 10.3; Calcium 8.5 mg/dL (8.5-10.1); Potassium 3.6 mmol/L (3.5-5.1)
[2020-07-26 22:40] LABS: BUN/Creatinine Ratio 9.9; Calcium 8.5 mg/dL (8.5-10.1); Potassium 3.3 mmol/L (3.5-5.1)
[2020-07-27] VITALS: BP 145/79
[2020-07-27] MEDS: ACCU-CHEK COMFORT CURVE STRIP VI SCH ×4 (00:13→12:00)
[2020-07-27] MEDS: SODIUM CHLORIDE 0.9% 1,000 ML IV SCH ×2 (02:45→10:12)
[2020-07-27] MEDS: InsuLIN REG 1unit/0.01ml Soln (100units/ml) SC SCH ×4 (04:00→12:00)
[2020-07-27 06:31] LABS: Basophils # (auto) 0.1 10 ^3/uL (0-0.2); Basophils % (auto) 0.7 % (0.0-2.0); Eosinophils # (auto) 0.1 10 ^3/uL (0-0.8); Hematocrit 34.5 % (41.0-53.0); Hemoglobin 12.1 g/dL (13.5-17.5); Lymphocytes # (auto) 2.4 10 ^3/uL (0.4-5.4); Lymphocytes % (auto) 27.7 % (10.0-50.0); Mean Corpuscular Hemoglobin 31.8 pg (28.0-32.0); Mean Corpuscular Hgb Conc. 35.1 g/dL (32.0-36.0); Mean Corpuscular Volume 90.5 fL (80.0-100.0); Monocytes # (auto) 0.7 10 ^3/uL (0-1.3); Monocytes % (auto) 7.7 % (0.0-12.0); Neutrophils # (auto) 5.5 10 ^3/uL (1.6-8.6); Neutrophils % (auto) 62.9 % (37.0-80.0); Platelet Count (auto) 295 10^3/uL (140-450); Red Blood Cells 3.81 10^6/uL (4.5-5.90); White Blood Cell 8.7 10^3/uL (4.4-10.8)
[2020-07-27 08:00] VITALS: BP_SYST 110; BP_SYST 149; BP_DIAS 65; BP_DIAS 99
[2020-07-27] MEDS ORDERED: POTASSIUM EFFERVESENT TAB 25 MEQ PO ONE (09:00)
[2020-07-27] MEDS ORDERED: INSULIN LANTUS (GLARGINE) 1 /0.01ml (100units/ml) SC SCH (10:00)
== END 2020-07-27 13:40 | disposition left against medical advice (07) | DRG 420 ==
LOC: ER 19:34 → EDSEX 19:34 → EDBD 19:34 → TELE 19:35 → TELE-CENTR 07-26 18:42
PROVIDERS: ADMIT Hospitalist; ATTEND Hospitalist
DX: E10.10 Type 1 diabetes mellitus with ketoacidosis without coma (principal); Z20.822 Contact with and (suspected) exposure to COVID-19; F17.210 Nicotine dependence, cigarettes, uncomplicated; Z82.49 Family history of ischemic heart disease and other diseases of the circulatory system; Z83.3 Family history of diabetes mellitus; Z88.0 Allergy status to penicillin; Z88.8 Allergy status to other drugs, medicaments and biological substances; Z53.29 Procedure and treatment not carried out because of patient's decision for other reasons; N17.9 Acute kidney failure, unspecified
CPT/HCPCS: 36415; 36600; 80048; 80053; 82010; 82805; 82962; 83036; 83690; 83735; 84443; 85025; 87426; 93005; 99291; G0378; J1815; J2405; J3480

== ENCOUNTER 2020-08-02 09:53 | Emergency (ER) | payer MEDICAID ==
[~2020-08-02] VITALS: Ht 172.7 cm; Wt 59.0 kg
[~2020-08-02 09:53] MED LIST changes: -INSLANTI SC; +INSLISPI SC; -INSUPOW
[2020-08-02 10:34] VITALS: BP 142/72
[2020-08-02] MEDS ORDERED: IBUPROFEN 800 MG TAB PO ONE (10:45)
== END 2020-08-02 11:20 | disposition home or self-care (01) ==
LOC: ER 09:53
DX: S62.512A Displaced fracture of proximal phalanx of left thumb, initial encounter for closed fracture (principal); E11.9 Type 2 diabetes mellitus without complications; E78.5 Hyperlipidemia, unspecified; F17.210 Nicotine dependence, cigarettes, uncomplicated; Z88.0 Allergy status to penicillin; Z88.1 Allergy status to other antibiotic agents; Z79.899 Other long term (current) drug therapy; X58.XXXA Exposure to other specified factors, initial encounter; Y93.89 Activity, other specified; Y92.89 Other specified places as the place of occurrence of the external cause; Y99.8 Other external cause status
CPT/HCPCS: 29125; 73130

== ENCOUNTER 2022-07-28 11:36 | Inpatient (IN) | payer MEDICAID ==
[~2022-07-28] VITALS: Ht 172.7 cm; Wt 61.7 kg
[2022-07-28 13:05] LABS: Urine Bacteria NONE SEEN /hpf (None Seen); Urine Blood Negative /uL (Negative); Urine Specific Gravity 1.015 (1.001-1.035); Urine WBC <1 /hpf (0 - 3)
[2022-07-28] MEDS ORDERED: SODIUM CHLORIDE 0.9% 1,000 ML IV ONE ×3 (13:30→19:15)
[2022-07-28 14:02] LABS: Basophils # (auto) 0.1 10 ^3/uL (0-0.2); Basophils % (auto) 0.6 % (0.0-2.0); Eosinophils # (auto) 0.1 10 ^3/uL (0-0.8); Eosinophils % (auto) 0.6 % (0.0-7.0); Hematocrit 34.9 % (41.0-53.0); Hemoglobin 11.8 g/dL (13.5-17.5); Lymphocytes # (auto) 1.5 10 ^3/uL (0.4-5.4); Lymphocytes % (auto) 16.5 % (10.0-50.0); Mean Corpuscular Hemoglobin 30.7 pg (28.0-32.0); Mean Corpuscular Hgb Conc. 33.8 g/dL (32.0-36.0); Mean Corpuscular Volume 90.9 fL (80.0-100.0); Monocytes # (auto) 0.6 10 ^3/uL (0-1.3); Monocytes % (auto) 6.1 % (0.0-12.0); Neutrophils # (auto) 7.1 10 ^3/uL (1.6-8.6); Neutrophils % (auto) 76.2 % (37.0-80.0); Nucleated Red Blood Cells % 0.2 %; Red Blood Cells 3.84 10^6/uL (4.5-5.90); Red Cell Distribution Width 12.5 % (11.8-14.3); White Blood Cell 9.3 10^3/uL (4.4-10.8)
[2022-07-28 14:10] LABS: Calcium 8.5 mg/dL (8.5-10.1)
[2022-07-28 14:14] LABS: BUN/Creatinine Ratio 11.5; Bilirubin, Total 0.4 mg/dL (0.2-1.0); Total Protein 8.1 g/dL (6.4-8.2)
[2022-07-28 14:17] LABS: Potassium 5.8 mmol/L (3.5-5.1)
[2022-07-28] MEDS ORDERED: CALCIUM CHL 100MG/ML 500 MG in D5W 5% 100 ML IV ONE (15:00)
[2022-07-28] MEDS ORDERED: ALBUTEROL SULF 2.5 MG/0.5ML(0.5%) NEB SOLN NEB ONE (15:00)
[2022-07-28] MEDS ORDERED: SODIUM BICARBONATE 8.4 % INJ 50ML VIAL IV ONE (15:00)
[2022-07-28] MEDS ORDERED: InsuLIN REG 1unit/0.01ml Soln (100units/ml) IV ONE (18:00)
[2022-07-28 18:48] LABS: BUN/Creatinine Ratio 11.9; Calcium 8.8 mg/dL (8.5-10.1); Potassium 4.5 mmol/L (3.5-5.1)
[2022-07-28] MEDS ORDERED: METOCLOPRAMIDE HCL 5MG/ml INJ 2ml VIAL IV ONE (19:15)
[2022-07-28] MEDS ORDERED: LORazepam 2MG/ML-1ML VIAL IV ONE ×2 (20:30→21:15)
[2022-07-28] MEDS ORDERED: DOCUSATE SOD 100 MG CAP PO PRN (22:30)
[2022-07-28] MEDS ORDERED: ACETAMINOPHEN 325 MG TAB PO PRN (22:30)
[2022-07-28] MEDS ORDERED: LORazepam 2MG/ML-1ML VIAL IV PRN (22:30)
[2022-07-28] MEDS ORDERED: ONDANSETRON HCL 4 MG/2 ML VIAL IV PRN (22:30)
[2022-07-28] MEDS ORDERED: DEXTROSE (50%) 50ML SYRG IV PRN (22:30)
[2022-07-28] MEDS ORDERED: NITROGLYCERIN 0.4 MG SL TAB SL PRN (22:30)
[2022-07-28] MEDS ORDERED: HYDROcodone-ACET 5/325MG TAB PO PRN (22:30)
[2022-07-28] MEDS ORDERED: hydrALAZINE HCL 20 MG/ML VL IV PRN (22:30)
[2022-07-28] MEDS ORDERED: SODIUM CHLORIDE 0.9% 1,000 ML IV SCH (22:30)
[2022-07-28] MEDS ORDERED: MORPHINE SULFATE INJ 2 MG/ml SYRG IV PRN (22:30)
[2022-07-29] MEDS: InsuLIN REG 1unit/0.01ml Soln (100units/ml) SC SCH ×4 (00:07→12:45)
[2022-07-29] MEDS: ACCU-CHEK COMFORT CURVE STRIP VI SCH ×4 (00:07→12:39)
[2022-07-29] MEDS ORDERED: DEXTROSE (50%) 50ML SYRG IV PRN (04:45)
[2022-07-29 05:37] LABS: Basophils # (auto) 0.1 10 ^3/uL (0-0.2); Basophils % (auto) 0.6 % (0.0-2.0); Eosinophils # (auto) 0.1 10 ^3/uL (0-0.8); Hematocrit 30.5 % (41.0-53.0); Hemoglobin 10.3 g/dL (13.5-17.5); Lymphocytes # (auto) 2.6 10 ^3/uL (0.4-5.4); Lymphocytes % (auto) 27.9 % (10.0-50.0); Mean Corpuscular Hemoglobin 30.5 pg (28.0-32.0); Mean Corpuscular Hgb Conc. 33.8 g/dL (32.0-36.0); Mean Corpuscular Volume 90.1 fL (80.0-100.0); Monocytes # (auto) 0.8 10 ^3/uL (0-1.3); Monocytes % (auto) 8.2 % (0.0-12.0); Neutrophils # (auto) 5.7 10 ^3/uL (1.6-8.6); Neutrophils % (auto) 62.3 % (37.0-80.0); Nucleated Red Blood Cells % 0.1 %; Red Blood Cells 3.39 10^6/uL (4.5-5.90); Red Cell Distribution Width 12.5 % (11.8-14.3); White Blood Cell 9.1 10^3/uL (4.4-10.8)
[2022-07-29 05:53] LABS: Albumin 3.4 g/dL (3.4-5.0); Calcium 8.5 mg/dL (8.5-10.1)
[2022-07-29 05:56] LABS: BUN/Creatinine Ratio 12.3; Bilirubin, Total 0.3 mg/dL (0.2-1.0); Total Protein 6.9 g/dL (6.4-8.2)
[2022-07-29 10:10] LABS: Alcohol, Urine < 3.0 mg/dL (0-10); Amphetamine Screen, Urine NEGATIVE (NEGATIVE); Barbiturate Scree,Urine NEGATIVE (NEGATIVE); Benzodiazephine Screen, Urine NEGATIVE (NEGATIVE); Cannabinoid Screen, Urine POSITIVE (NEGATIVE); Opiate Scree,Urine NEGATIVE (NEGATIVE); Phencyclidine Screen, Urine NEGATIVE (NEGATIVE)
[2022-07-29 10:20] LABS: Cocaine Screen, Urine NEGATIVE (NEGATIVE)
[2022-07-29 14:00] VITALS: BP 147/89
== END 2022-07-29 14:22 | disposition home or self-care (01) | DRG 420 ==
LOC: ER 11:36 → TELE 22:24
PROVIDERS: ADMIT Nurse Practitioner Family; ATTEND Nurse Practitioner Family
DX: E11.65 Type 2 diabetes mellitus with hyperglycemia (principal); N17.9 Acute kidney failure, unspecified; E11.22 Type 2 diabetes mellitus with diabetic chronic kidney disease; E78.5 Hyperlipidemia, unspecified; E87.5 Hyperkalemia; N18.9 Chronic kidney disease, unspecified; Z20.822 Contact with and (suspected) exposure to COVID-19; F17.210 Nicotine dependence, cigarettes, uncomplicated; I12.9 Hypertensive chronic kidney disease with stage 1 through stage 4 chronic kidney disease, or unspecified chronic kidney disease; Z88.0 Allergy status to penicillin; Z88.6 Allergy status to analgesic agent; Z83.3 Family history of diabetes mellitus; Z82.49 Family history of ischemic heart disease and other diseases of the circulatory system; Z79.4 Long term (current) use of insulin
CPT/HCPCS: 36415; 70450; 71046; 80048; 80053; 80307; 81001; 82010; 82962; 83036; 83690; 85025; 87426; 93005; 94644; G0378; J1815; J7060

== ENCOUNTER 2022-09-16 03:59 | Inpatient (IN) | payer MEDICAID ==
[2022-09-16] VITALS (48 sets, daily range): BP systolic 90–122; BP diastolic 47–80
[~2022-09-16] VITALS: Ht 167.6 cm; Wt 66.7 kg
[2022-09-16] MEDS ORDERED: InsuLIN REG 1unit/0.01ml Soln (100units/ml) IV ONE (04:50)
[2022-09-16] MEDS ORDERED: InsuLIN REG 1unit/0.01ml Soln (100units/ml) ONE (04:50)
[2022-09-16] MEDS ORDERED: ETOMIDATE (2MG/ML) 20ML VIAL IV ONE ×2 (04:51→05:15)
[2022-09-16] MEDS ORDERED: PROPOFOL 100 ML IV ONE (04:52)
[2022-09-16] MEDS ORDERED: ROCURONIUM 10MG/ML 10ML VIAL IV ONE ×2 (04:52→05:15)
[2022-09-16] MEDS: PROPOFOL 100 ML IV SCH ×2 (04:58→20:57)
[2022-09-16 05:11] LABS: Basophils # (auto) 0 10 ^3/uL (0-0.2); Basophils % (auto) 0.1 % (0.0-2.0); Eosinophils # (auto) 0 10 ^3/uL (0-0.8); Eosinophils % (auto) 0.1 % (0.0-7.0); Hematocrit 36.1 % (41.0-53.0); Hemoglobin 11.9 g/dL (13.5-17.5); Lymphocytes # (auto) 2.4 10 ^3/uL (0.4-5.4); Lymphocytes % (auto) 12.9 % (10.0-50.0); Mean Corpuscular Hemoglobin 30.5 pg (28.0-32.0); Mean Corpuscular Hgb Conc. 32.9 g/dL (32.0-36.0); Mean Corpuscular Volume 92.6 fL (80.0-100.0); Monocytes # (auto) 0.3 10 ^3/uL (0-1.3); Monocytes % (auto) 1.8 % (0.0-12.0); Neutrophils # (auto) 15.7 10 ^3/uL (1.6-8.6); Neutrophils % (auto) 85.1 % (37.0-80.0); Red Blood Cells 3.91 10^6/uL (4.5-5.90); Red Cell Distribution Width 12.3 % (11.8-14.3); White Blood Cell 18.4 10^3/uL (4.4-10.8)
[2022-09-16 05:31] LABS: Calcium 8.9 mg/dL (8.5-10.1); Potassium 4.1 mmol/L (3.5-5.1)
[2022-09-16 05:39] LABS: Albumin 3.5 g/dL (3.4-5.0); BUN/Creatinine Ratio 16.1 (10.0-20.0); Bilirubin, Total 0.8 mg/dL (0.2-1.0); Total Protein 8.7 g/dL (6.4-8.2)
[2022-09-16] MEDS ORDERED: MIDAZOLAM HCL 5 MG/ML-1ML VIAL IV ONE (05:45)
[2022-09-16] MEDS ORDERED: fentaNYL CITRATE 100 MCG/2 ML VL IV ONE ×2 (05:45)
[2022-09-16] MEDS ORDERED: PROPOFOL 10 MG/ML 20 ML IV ONE (06:15)
[2022-09-16] MEDS ORDERED: PIPERACILLIN-TAZOB 3.375GM 100 ML IV ONE (06:15)
[2022-09-16 06:21] LABS: Salicylate 2.3 mg/dL (2.8-20.0)
[2022-09-16 06:28] LABS: Blood Alcohol < 3.0 mg/dL (0-5); Lipase 77 U/L (73-393)
[2022-09-16] MEDS: MIDAZOLAM DRIP 50 mg/50mL 50 ML IV SCH ×2 (06:30→21:35)
[2022-09-16] MEDS ORDERED: DEXTROSE (50%) 50ML SYRG IV PRN (06:30)
[2022-09-16] MEDS ORDERED: InsuLIN R (HUMAN) 100 UNITS in SODIUM CHL 0.9% 99 ML IV SCH (06:30)
[2022-09-16] MEDS ORDERED: INSULIN LANTUS (GLARGINE) 1 /0.01ml (100units/ml) SC ONE (06:30)
[2022-09-16 06:42] LABS: Urine Bacteria NONE SEEN /hpf (None Seen); Urine Blood TRACE /uL (Negative); Urine Specific Gravity 1.018 (1.001-1.035); Urine WBC 1 /hpf (0 - 3)
[2022-09-16 06:51] LABS: Amphetamine Screen, Urine NEGATIVE (NEGATIVE); Barbiturate Scree,Urine NEGATIVE (NEGATIVE); Cannabinoid Screen, Urine POSITIVE (NEGATIVE)
[2022-09-16 06:59] LABS: Alcohol, Urine < 3.0 mg/dL (0-10); Benzodiazephine Screen, Urine NEGATIVE (NEGATIVE); Cocaine Screen, Urine NEGATIVE (NEGATIVE); Opiate Scree,Urine NEGATIVE (NEGATIVE); Phencyclidine Screen, Urine NEGATIVE (NEGATIVE)
[2022-09-16 07:13] LABS: Acetaminophen < 2.0 ug/mL (10-30)
[2022-09-16] MEDS: SODIUM CHLORIDE 0.9% 1,000 ML IV SCH ×2 (07:15→09:03)
[2022-09-16] MEDS: ACCU-CHEK COMFORT CURVE STRIP VI SCH ×11 (07:54→22:49)
[2022-09-16] MEDS: fentaNYL Drip 2500mCg/250mlNS 250 ML IV SCH (08:40)
[2022-09-16] MEDS ORDERED: SODIUM CHLORIDE 0.9% 1,000 ML IV SCH ×3 (10:30→12:30)
[2022-09-16] MEDS ORDERED: MORPHINE SULFATE INJ 2 MG/ml SYRG IV PRN (11:15)
[2022-09-16] MEDS ORDERED: NITROGLYCERIN 0.4 MG SL TAB SL PRN (11:15)
[2022-09-16 12:48] LABS: BUN/Creatinine Ratio 17.3 (10.0-20.0); Calcium 7.7 mg/dL (8.5-10.1)
[2022-09-16] MEDS ORDERED: PANTOPRAZOLE 40 MG/10 ML VIAL INJ IV ONE (13:15)
[2022-09-16] MEDS ORDERED: D5W/SOD CHL 0.45% 1,000 ML IV STA (13:22)
[2022-09-16 14:13] LABS: Cholesterol 144 mg/dL (< 200)
[2022-09-16 14:16] LABS: HDL Cholesterol 37 mg/dL (40-59); LDL Cholesterol 87 mg/dL (< 100); Triglycerides 179 mg/dL (< 150)
[2022-09-16] MEDS: D5W/SOD CHL 0.45% 1,000 ML IV SCH ×2 (17:15→23:08)
[2022-09-16 18:51] LABS: BUN/Creatinine Ratio 15.1 (10.0-20.0); Calcium 7.7 mg/dL (8.5-10.1); Potassium 3.8 mmol/L (3.5-5.1)
[2022-09-17] VITALS (80 sets, daily range): BP systolic 99–193; BP diastolic 54–116
[2022-09-17] MEDS: MIDAZOLAM DRIP 50 mg/50mL 50 ML IV SCH ×3 (00:58→08:59)
[2022-09-17 01:03] LABS: BUN/Creatinine Ratio 15.1 (10.0-20.0); Calcium 7.9 mg/dL (8.5-10.1); Potassium 3.5 mmol/L (3.5-5.1)
[2022-09-17] MEDS: ACCU-CHEK COMFORT CURVE STRIP VI SCH ×7 (01:30→20:20)
[2022-09-17] MEDS ORDERED: DEXTROSE (50%) 50ML SYRG IV PRN (02:15)
[2022-09-17] MEDS: fentaNYL Drip 2500mCg/250mlNS 250 ML IV SCH (03:54)
[2022-09-17] MEDS: PROPOFOL 100 ML IV SCH ×2 (03:59→10:27)
[2022-09-17] MEDS: InsuLIN REG 1unit/0.01ml Soln (100units/ml) SC SCH ×5 (04:00→20:22)
[2022-09-17 04:17] LABS: Basophils # (auto) 0 10 ^3/uL (0-0.2); Basophils % (auto) 0.2 % (0.0-2.0); Eosinophils # (auto) 0.1 10 ^3/uL (0-0.8); Eosinophils % (auto) 0.6 % (0.0-7.0); Hematocrit 26.2 % (41.0-53.0); Hemoglobin 8.8 g/dL (13.5-17.5); Lymphocytes # (auto) 2.7 10 ^3/uL (0.4-5.4); Lymphocytes % (auto) 18.4 % (10.0-50.0); Mean Corpuscular Hemoglobin 30.4 pg (28.0-32.0); Mean Corpuscular Hgb Conc. 33.8 g/dL (32.0-36.0); Monocytes # (auto) 1.2 10 ^3/uL (0-1.3); Monocytes % (auto) 8.1 % (0.0-12.0); Neutrophils # (auto) 10.6 10 ^3/uL (1.6-8.6); Neutrophils % (auto) 72.7 % (37.0-80.0); Red Blood Cells 2.91 10^6/uL (4.5-5.90); Red Cell Distribution Width 12.5 % (11.8-14.3); White Blood Cell 14.6 10^3/uL (4.4-10.8)
[2022-09-17 04:32] LABS: Albumin 2.4 g/dL (3.4-5.0); Calcium 7.6 mg/dL (8.5-10.1); Potassium 3.5 mmol/L (3.5-5.1)
[2022-09-17 04:35] LABS: Bilirubin, Total 0.2 mg/dL (0.2-1.0); Total Protein 5.9 g/dL (6.4-8.2)
[2022-09-17] MEDS ORDERED: INSULIN LANTUS (GLARGINE) 1 /0.01ml (100units/ml) SC SCH ×2 (10:00→22:00)
[2022-09-17] MEDS: PANTOPRAZOLE 40 MG/10 ML VIAL INJ IV SCH (10:24)
[2022-09-17] MEDS: ENOXAPARIN SOD 40 MG/0.4 ML SYRINGE SC SCH (10:24)
[2022-09-17] MEDS: D5W/SOD CHL 0.45% 1,000 ML IV SCH ×2 (10:31→22:06)
[2022-09-17] MEDS ORDERED: levoFLOXacin 500MG 100 ML IV ONE (11:30)
[2022-09-17] MEDS ORDERED: MIDAZOLAM DRIP 50 mg/50mL 50 ML IV SCH (11:45)
[2022-09-17] MEDS: LABETALOL HCL 5 MG/ML 4ML SYRINGE IV PRN ×2 (13:19→17:54)
[2022-09-17] MEDS ORDERED: ACETAMINOPHEN 650 mg PER 20.3 mL UD ONE (14:58)
[2022-09-17] MEDS ORDERED: ACETAMINOPHEN 650 mg PER 20.3 mL UD PO PRN ×2 (15:00→15:15)
[2022-09-18] VITALS (13 sets, daily range): BP systolic 127–190; BP diastolic 77–106
[2022-09-18] MEDS: ACCU-CHEK COMFORT CURVE STRIP VI SCH ×3 (00:14→09:37)
[2022-09-18] MEDS: InsuLIN REG 1unit/0.01ml Soln (100units/ml) SC SCH ×3 (04:00→08:00)
[2022-09-18 04:14] LABS: Basophils # (auto) 0 10 ^3/uL (0-0.2); Basophils % (auto) 0.2 % (0.0-2.0); Eosinophils # (auto) 0 10 ^3/uL (0-0.8); Eosinophils % (auto) 0.1 % (0.0-7.0); Hematocrit 27.9 % (41.0-53.0); Hemoglobin 9.7 g/dL (13.5-17.5); Lymphocytes % (auto) 12.6 % (10.0-50.0); Mean Corpuscular Hemoglobin 30.9 pg (28.0-32.0); Mean Corpuscular Hgb Conc. 34.9 g/dL (32.0-36.0); Mean Corpuscular Volume 88.4 fL (80.0-100.0); Monocytes # (auto) 1.4 10 ^3/uL (0-1.3); Monocytes % (auto) 8.9 % (0.0-12.0); Neutrophils # (auto) 12.1 10 ^3/uL (1.6-8.6); Neutrophils % (auto) 78.2 % (37.0-80.0); Red Blood Cells 3.15 10^6/uL (4.5-5.90); Red Cell Distribution Width 11.9 % (11.8-14.3); White Blood Cell 15.5 10^3/uL (4.4-10.8)
[2022-09-18 04:32] LABS: Albumin 2.4 g/dL (3.4-5.0); Calcium 7.8 mg/dL (8.5-10.1); Potassium 3.1 mmol/L (3.5-5.1)
[2022-09-18 04:36] LABS: BUN/Creatinine Ratio 7.2 (10.0-20.0); Bilirubin, Total 0.6 mg/dL (0.2-1.0); Total Protein 6.7 g/dL (6.4-8.2)
[2022-09-18] MEDS ORDERED: POTASSIUM CHL 20MEQ/100ML 100 ML IV ONE (09:30)
[2022-09-18] MEDS ORDERED: levoFLOXacin 500MG 100 ML IV SCH (10:00)
[2022-09-18] MEDS: PANTOPRAZOLE 40 MG/10 ML VIAL INJ IV SCH (10:10)
[2022-09-18] MEDS: ENOXAPARIN SOD 40 MG/0.4 ML SYRINGE SC SCH (10:10)
[2022-09-18] MEDS: D5W/SOD CHL 0.45% 1,000 ML IV SCH (10:27)
[2022-09-18] MEDS: LABETALOL HCL 5 MG/ML 4ML SYRINGE IV PRN (11:28)
[2022-09-18] MEDS ORDERED: D5W/SOD CHL 0.45% 1,000 ML IV SCH (12:00)
[2022-09-18] MEDS ORDERED: DEXTROSE (50%) 50ML SYRG IV PRN (12:00)
[2022-09-18] MEDS ORDERED: DOCUSATE SOD 100 MG CAP PO PRN (12:15)
[2022-09-18] MEDS ORDERED: POTASSIUM CHL 20 Meq TABLET PO ONE (13:30)
[2022-09-18] MEDS ORDERED: InsuLIN REG 1unit/0.01ml Soln (100units/ml) SC SCH ×2 (17:00→22:00)
[2022-09-18] MEDS ORDERED: ACCU-CHEK COMFORT CURVE STRIP VI SCH (17:00)
== END 2022-09-18 14:00 | disposition home or self-care (01) | DRG 720 ==
LOC: ER 03:59 → TELE 11:14 → ICU WEST 14:05 → UNDODISIN 09-18 13:48
PROVIDERS: ADMIT Registered Nurse; ATTEND Internal Medicine
PROC: 04HY32Z Insertion of Monitoring Device into Lower Artery, Percutaneous Approach (ICD-10-PCS; principal; 2022-09-16)
PROC: 5A1945Z Respiratory Ventilation, 24-96 Consecutive Hours (ICD-10-PCS; 2022-09-16)
PROC: 0BH17EZ Insertion of Endotracheal Airway into Trachea, Via Natural or Artificial Opening (ICD-10-PCS; 2022-09-16)
DX: A41.9 Sepsis, unspecified organism (principal); J96.00 Acute respiratory failure, unspecified whether with hypoxia or hypercapnia; N17.0 Acute kidney failure with tubular necrosis; E11.10 Type 2 diabetes mellitus with ketoacidosis without coma; J18.9 Pneumonia, unspecified organism; E86.0 Dehydration; E78.5 Hyperlipidemia, unspecified; Z20.822 Contact with and (suspected) exposure to COVID-19; F17.210 Nicotine dependence, cigarettes, uncomplicated; Z82.49 Family history of ischemic heart disease and other diseases of the circulatory system; Z83.3 Family history of diabetes mellitus; Z88.0 Allergy status to penicillin; Z88.1 Allergy status to other antibiotic agents; Z88.8 Allergy status to other drugs, medicaments and biological substances; Z79.4 Long term (current) use of insulin; Z91.199 Patient's noncompliance with other medical treatment and regimen due to unspecified reason
CPT/HCPCS: 31500; 36415; 36600; 51702; 70450; 71045; 80048; 80053; 80061; 80307; 80320; 80329; 81001; 82010; 82553; 82805; 82962; 83690; 83735; 83880; 83930; 84484; 85025; 85730; 87040; 87070; 87081; 87205; 87426; 87804; 94002; 94003; 96361; 96372; 96374; 96375; 99291; C9113; G0378; J1815; J1956; J2250; J2704; J3490; J7060

== ENCOUNTER 2023-02-04 11:31 | Inpatient (IN) | payer MEDICAID ==
[~2023-02-04] VITALS: Ht 175.3 cm; Wt 62.7 kg
[2023-02-04 12:00] VITALS: PULSE 88; RESP 18; O2SAT 98
[2023-02-04 12:24] LABS: Basophils # (auto) 0 10 ^3/uL (0-0.2); Basophils % (auto) 0.5 % (0.0-2.0); Eosinophils # (auto) 0.1 10 ^3/uL (0-0.8); Eosinophils % (auto) 0.6 % (0.0-7.0); Hematocrit 32.5 % (41.0-53.0); Hemoglobin 10.9 g/dL (13.5-17.5); Lymphocytes # (auto) 1.7 10 ^3/uL (0.4-5.4); Lymphocytes % (auto) 18.9 % (10.0-50.0); Mean Corpuscular Hemoglobin 29.4 pg (28.0-32.0); Mean Corpuscular Hgb Conc. 33.5 g/dL (32.0-36.0); Mean Corpuscular Volume 87.9 fL (80.0-100.0); Monocytes # (auto) 0.6 10 ^3/uL (0-1.3); Monocytes % (auto) 6.5 % (0.0-12.0); Neutrophils # (auto) 6.8 10 ^3/uL (1.6-8.6); Neutrophils % (auto) 73.5 % (37.0-80.0); Red Cell Distribution Width 12.5 % (11.8-14.3); White Blood Cell 9.3 10^3/uL (4.4-10.8)
[2023-02-04] MEDS ORDERED: SODIUM CHLORIDE 0.9% 1,000 ML IV ONE ×3 (12:30→14:00)
[2023-02-04 12:53] LABS: Albumin 3.6 g/dL (3.4-5.0); BUN/Creatinine Ratio 17.5 (10.0-20.0); Calcium 8.8 mg/dL (8.5-10.1); Potassium 4.8 mmol/L (3.5-5.1)
[2023-02-04 13:00] LABS: Bilirubin, Total 0.2 mg/dL (0.2-1.0); Total Protein 8.2 g/dL (6.4-8.2)
[2023-02-04] MEDS ORDERED: ONDANSETRON HCL 4 MG/2 ML VIAL IV ONE (13:00)
[2023-02-04] MEDS ORDERED: MORPHINE SULFATE INJ 2 MG/ml SYRG IV ONE (13:00)
[2023-02-04 13:07] LABS: Urine Bacteria NONE SEEN /hpf (None Seen); Urine Blood TRACE /uL (Negative); Urine Clarity Clear (Clear); Urine Color Yellow (Yellow); Urine Hyaline Cast FEW /lpf (0 - 2); Urine Protein, UAD 2+ (Negative); Urine Specific Gravity 1.018 (1.001-1.035); Urine Urobilinogen Normal (Negative); Urine WBC 1 /hpf (0 - 3); Urine pH 5.5 (5.0-8.0)
[2023-02-04] MEDS ORDERED: InsuLIN REG 1unit/0.01ml Soln (100units/ml) IV ONE ×2 (14:00)
[2023-02-04 15:00] VITALS: BP 138/90; PULSE 79; RESP 13; O2SAT 99
[2023-02-04] MEDS ORDERED: DEXTROSE (50%) 50ML SYRG IV PRN (15:15)
[2023-02-04] MEDS ORDERED: ACETAMINOPHEN 325 MG TAB PO PRN (15:15)
[2023-02-04] MEDS ORDERED: SODIUM CHLORIDE 0.9% 1,000 ML IV SCH (15:15)
[2023-02-04] MEDS ORDERED: InsuLIN REG 1unit/0.01ml Soln (100units/ml) SC SCH ×2 (17:00→22:00)
[2023-02-04] MEDS ORDERED: ACCU-CHEK COMFORT CURVE STRIP VI SCH (17:00)
== END 2023-02-04 20:17 | disposition left against medical advice (07) | DRG 420 ==
LOC: ER 11:31 → OVERFLOW 15:03
PROVIDERS: ADMIT Nurse Practitioner Family; ATTEND Nurse Practitioner Family
DX: E10.65 Type 1 diabetes mellitus with hyperglycemia (principal); N17.9 Acute kidney failure, unspecified; E78.5 Hyperlipidemia, unspecified; E86.0 Dehydration; Z53.29 Procedure and treatment not carried out because of patient's decision for other reasons; F17.210 Nicotine dependence, cigarettes, uncomplicated; Z88.0 Allergy status to penicillin; Z88.1 Allergy status to other antibiotic agents; N18.9 Chronic kidney disease, unspecified; Z79.4 Long term (current) use of insulin
CPT/HCPCS: 36415; 71045; 80053; 81001; 82010; 82962; 83036; 83930; 85025; 96361; 96374; 96375; G0378; J1815; J2405

== ENCOUNTER 2024-03-02 21:32 | Inpatient (IN) | payer MEDICAID ==
[~2024-03-02] VITALS: Ht 175.3 cm; Wt 140.0 kg
[2024-03-02 22:11] LABS: Base Excess -5.4 mmol/L (-2.0-3.0)
[2024-03-02 22:38] LABS: Basophils # (auto) 0.1 10 ^3/uL (0-0.2); Basophils % (auto) 0.8 % (0.0-2.0); Eosinophils # (auto) 0.1 10 ^3/uL (0-0.8); Eosinophils % (auto) 0.8 % (0.0-7.0); Hematocrit 29.8 % (41.0-53.0); Hemoglobin 10.2 g/dL (13.5-17.5); Lymphocytes # (auto) 1.8 10 ^3/uL (0.4-5.4); Lymphocytes % (auto) 17.1 % (10.0-50.0); Mean Corpuscular Hemoglobin 30.1 pg (28.0-32.0); Mean Corpuscular Hgb Conc. 34.1 g/dL (32.0-36.0); Mean Corpuscular Volume 88.2 fL (80.0-100.0); Monocytes # (auto) 0.5 10 ^3/uL (0-1.3); Monocytes % (auto) 4.4 % (0.0-12.0); Neutrophils # (auto) 8.2 10 ^3/uL (1.6-8.6); Neutrophils % (auto) 76.9 % (37.0-80.0); Platelet Count (auto) 371 10^3/uL (140-450); Red Blood Cells 3.38 10^6/uL (4.5-5.90); White Blood Cell 10.7 10^3/uL (4.4-10.8)
[2024-03-02 22:51] LABS: Alanine Aminotransferase 25 U/L (7-40); Albumin 4.2 g/dL (3.2-4.8); Alkaline Phosphatase 142 U/L (46-116); Anion Gap 12 (5-15); Aspartate Aminotransferase 15 U/L (13-40); BUN/Creatinine Ratio 7.7 (10.0-20.0); Bilirubin, Total 0.4 mg/dL (0.2-1.0); Blood Urea Nitrogen 33 mg/dL (9-23); Calcium 8.9 mg/dL (8.7-10.4); Carbon Dioxide 18 mmol/L (20-30); Chloride 105 mmol/L (98-107); Glucose 335 mg/dL (74-106); Magnesium 1.9 mg/dL (1.6-2.6); Phosphorus 5.1 mg/dL (2.4-5.1); Potassium 4.7 mmol/L (3.5-5.1); Sodium 135 mmol/L (136-145); Total Protein 7.7 g/dL (5.7-8.2)
[2024-03-02 23:02] VITALS: PULSE 111; RESP 22; O2SAT 100
[2024-03-02] MEDS: ONDANSETRON HCL 4 MG/2 ML VIAL IV ONE (23:19)
[2024-03-02] MEDS: SODIUM CHLORIDE 0.9% 1,000 ML IV ONE (23:20)
[2024-03-02] MEDS: MORPHINE SULFATE 4 MG/ML SYR/VIAL IV ONE (23:33)
[2024-03-03] MEDS: ACCU-CHEK COMFORT CURVE STRIP VI ONE (00:15)
[2024-03-03] MEDS: DEXTROSE (50%) 50ML SYRG IV ONE (00:15)
[2024-03-03] MEDS: SODIUM CHLORIDE 0.9% 1,000 ML IV ONE (00:15)
[2024-03-03] MEDS: InsuLIN REG 1unit/0.01ml Soln (100units/ml) SC ONE ×2 (00:15→00:51)
[2024-03-03] MEDS: SODIUM CHLORIDE 0.9% 1,000 ML IV SCH ×2 (01:00→09:13)
[2024-03-03] MEDS: dilTIAZem 25 MG/5 ML VIAL IV ONE (01:07)
[2024-03-03] MEDS: InsuLIN REG 1unit/0.01ml Soln (100units/ml) SC SCH (03:32)
[2024-03-03] MEDS: ACCU-CHEK COMFORT CURVE STRIP VI SCH (03:33)
[2024-03-03] MEDS: ONDANSETRON HCL 4 MG/2 ML VIAL IV PRN (03:34)
[2024-03-03] MEDS: hydrALAZINE HCL 20 MG/ML VL IV PRN (03:34)
[2024-03-03] MEDS: LABETALOL HCL 20 MG/4 ML VL IV ONE (04:25)
[2024-03-03] MEDS: traMADol HCL 50 MG TAB PO ONE (05:29)
[2024-03-03] MEDS: FUROSEMIDE 20 MG TAB PO SCH (05:50)
[2024-03-03] MEDS: hydrALAZINE HCL 25 MG TAB PO SCH (05:55)
[2024-03-03 06:16] LABS: Urine Bacteria None Seen /hpf (None Seen)
[2024-03-03 06:52] LABS: Urine Blood 1+ /uL (Negative); Urine Clarity Clear (Clear); Urine Color Colorless (Yellow); Urine Protein, UAD 3+ (Negative); Urine Urobilinogen Normal (Negative); Urine WBC 2 /hpf (0 - 3); Urine pH 6.5 (5.0-9.0)
[2024-03-03 06:59] LABS: Amphetamine Screen, Urine Neg (NEGATIVE); Barbiturate Scree,Urine Neg (NEGATIVE); Benzodiazephine Screen, Urine Neg (NEGATIVE); Cannabinoid Screen, Urine Pos (NEGATIVE); Cocaine Screen, Urine Neg (NEGATIVE); Opiate Scree,Urine Neg (NEGATIVE); Phencyclidine Screen, Urine Neg (NEGATIVE)
[2024-03-03 08:29] VITALS: PULSE 111; RESP 22; O2SAT 100
[2024-03-03 08:34] LABS: Basophils # (auto) 0.1 10 ^3/uL (0-0.2); Basophils % (auto) 0.6 % (0.0-2.0); Eosinophils # (auto) 0 10 ^3/uL (0-0.8); Eosinophils % (auto) 0.2 % (0.0-7.0); Hematocrit 30.4 % (41.0-53.0); Hemoglobin 10.3 g/dL (13.5-17.5); Lymphocytes % (auto) 15.2 % (10.0-50.0); Mean Corpuscular Hemoglobin 30.2 pg (28.0-32.0); Mean Corpuscular Hgb Conc. 33.9 g/dL (32.0-36.0); Mean Corpuscular Volume 89.1 fL (80.0-100.0); Monocytes # (auto) 0.4 10 ^3/uL (0-1.3); Monocytes % (auto) 2.7 % (0.0-12.0); Neutrophils # (auto) 10.9 10 ^3/uL (1.6-8.6); Neutrophils % (auto) 81.3 % (37.0-80.0); Platelet Count (auto) 389 10^3/uL (140-450); Red Blood Cells 3.41 10^6/uL (4.5-5.90); Red Cell Distribution Width 13.2 % (11.8-14.3); White Blood Cell 13.4 10^3/uL (4.4-10.8)
[2024-03-03 08:40] LABS: Chloride 107 mmol/L (98-107); Sodium 139 mmol/L (136-145)
[2024-03-03 08:41] LABS: Anion Gap 15 (5-15); Carbon Dioxide 17 mmol/L (20-30)
[2024-03-03 08:46] LABS: BUN/Creatinine Ratio 7.9 (10.0-20.0); Blood Urea Nitrogen 32 mg/dL (9-23); Glucose 76 mg/dL (74-106)
[2024-03-03] MEDS: PANTOPRAZOLE 40 MG/10 ML VIAL INJ IV SCH (09:01)
[2024-03-03] MEDS: INSULIN LANTUS (GLARGINE) 1 /0.01ml (100units/ml) SC ONE ×2 (09:11→22:00)
[2024-03-03] MEDS: SODIUM BICARBONATE 650 MG TAB PO SCH (10:54)
[2024-03-03] MEDS: NIFEdipine ER 30 MG TAB PO SCH (10:55)
[2024-03-03] MEDS: CARVEDILOL 3.125 MG TAB PO SCH (10:55)
[2024-03-03 13:45] LABS: INR 1.05 (0.9-1.15); Partial Thromboplastin Time 25.8 SEC (24.5-34.5); Prothrombin Time 11.1 sec (9.3-11.8)
[2024-03-03] MEDS: LORazepam 2MG/ML-1ML VIAL IM ONE (15:58)
[2024-03-03 16:43] LABS: Triglycerides 97 mg/dL (< 150)
[2024-03-03 16:44] LABS: LDL Cholesterol 93 mg/dL (< 100)
[2024-03-03 16:45] LABS: Cholesterol 168 mg/dL (< 200); HDL Cholesterol 62 mg/dL (40-59)
[2024-03-03 17:50] VITALS: BP 173/106; PULSE 124; RESP 14; TEMP 97.8; O2SAT 98
[2024-03-03 18:01] VITALS: PULSE 124; RESP 16; O2SAT 96
[2024-03-03 18:03] VITALS: BP 173/106; PULSE 124; RESP 14; TEMP 97.8; O2SAT 98
[2024-03-03] MEDS: DEXTROSE (50%) 50ML SYRG IV PRN (18:23)
[2024-03-03 20:00] VITALS: PULSE 116; PULSE 124; RESP 26; O2SAT 92
[2024-03-03] MEDS: ATORVASTATIN 20 MG TAB PO SCH (22:03)
[2024-03-03] MEDS: HYDROcodone-ACET 7.5/325MG TAB PO ONE (22:30)
[2024-03-03 23:28] VITALS: BP 147/80; PULSE 124; RESP 26; TEMP 98.1; O2SAT 92
[2024-03-04] VITALS (9 sets, daily range): BP systolic 121–173; BP diastolic 59–104; PULSE 68–116; RESP 15–20; TEMP 97.8–98.3; O2SAT 92–100
[2024-03-04 04:40] LABS: Basophils # (auto) 0 10 ^3/uL (0-0.2); Basophils % (auto) 0.1 % (0.0-2.0); Eosinophils # (auto) 0 10 ^3/uL (0-0.8); Hematocrit 24.9 % (41.0-53.0); Hemoglobin 8.5 g/dL (13.5-17.5); Lymphocytes # (auto) 1.3 10 ^3/uL (0.4-5.4); Lymphocytes % (auto) 7.1 % (10.0-50.0); Mean Corpuscular Hemoglobin 29.9 pg (28.0-32.0); Mean Corpuscular Hgb Conc. 33.9 g/dL (32.0-36.0); Mean Corpuscular Volume 88.2 fL (80.0-100.0); Monocytes # (auto) 0.7 10 ^3/uL (0-1.3); Monocytes % (auto) 3.9 % (0.0-12.0); Neutrophils % (auto) 88.9 % (37.0-80.0); Platelet Count (auto) 319 10^3/uL (140-450); Red Blood Cells 2.83 10^6/uL (4.5-5.90); Red Cell Distribution Width 13.1 % (11.8-14.3); White Blood Cell 18.1 10^3/uL (4.4-10.8)
[2024-03-04 04:59] LABS: Alanine Aminotransferase 23 U/L (7-40); Albumin 3.6 g/dL (3.2-4.8); Alkaline Phosphatase 103 U/L (46-116); Anion Gap 11 (5-15); Aspartate Aminotransferase 28 U/L (13-40); BUN/Creatinine Ratio 8.1 (10.0-20.0); Blood Urea Nitrogen 35 mg/dL (9-23); Calcium 8.1 mg/dL (8.7-10.4); Carbon Dioxide 24 mmol/L (20-30); Chloride 105 mmol/L (98-107); Glucose 86 mg/dL (74-106); Potassium 3.5 mmol/L (3.5-5.1); Sodium 140 mmol/L (136-145)
[2024-03-04 05:00] LABS: Bilirubin, Total 0.2 mg/dL (0.2-1.0); Total Protein 6.4 g/dL (5.7-8.2)
[2024-03-04] MEDS: MORPHINE SULFATE INJ 2 MG/ml SYRG IV PRN (09:13)
[2024-03-04] MEDS ORDERED: INSULIN LANTUS (GLARGINE) 1 /0.01ml (100units/ml) SC SCH (10:00)
[2024-03-04] MEDS ORDERED: LIDOCAINE 2% (LOCAL ANESTH.) PF 5ml SDV ONE (11:27)
[2024-03-04] MEDS ORDERED: PROPOFOL 10 MG/ML 20 ML IV ONE ×2 (11:27→11:28)
[2024-03-04] MEDS: SUCRALFATE 1 GM/10 ML ORAL SUSP GT SCH (17:51)
[2024-03-04] MEDS: LACTATED RINGER'S 1,000 ML IV SCH (19:00)
[2024-03-04] MEDS: CALCIUM W/VIT D (600MG/400IU) TAB PO SCH (19:00)
[2024-03-04] MEDS: ACETAMINOPHEN 325 MG TAB PO PRN (21:31)
[2024-03-05] VITALS (8 sets, daily range): BP systolic 113–156; BP diastolic 68–99; PULSE 68–106; RESP 16–19; TEMP 97.6–98.8; O2SAT 92–98
[2024-03-05 07:31] LABS: Basophils # (auto) 0 10 ^3/uL (0-0.2); Basophils % (auto) 0.3 % (0.0-2.0); Chloride 100 mmol/L (98-107); Eosinophils # (auto) 0.1 10 ^3/uL (0-0.8); Eosinophils % (auto) 0.5 % (0.0-7.0); Hematocrit 25.9 % (41.0-53.0); Hemoglobin 8.8 g/dL (13.5-17.5); Lymphocytes # (auto) 1.8 10 ^3/uL (0.4-5.4); Lymphocytes % (auto) 13.5 % (10.0-50.0); Mean Corpuscular Hemoglobin 30.1 pg (28.0-32.0); Mean Corpuscular Hgb Conc. 34.1 g/dL (32.0-36.0); Mean Corpuscular Volume 88.2 fL (80.0-100.0); Monocytes # (auto) 0.7 10 ^3/uL (0-1.3); Monocytes % (auto) 5.2 % (0.0-12.0); Neutrophils # (auto) 10.8 10 ^3/uL (1.6-8.6); Neutrophils % (auto) 80.5 % (37.0-80.0); Platelet Count (auto) 297 10^3/uL (140-450); Potassium 3.2 mmol/L (3.5-5.1); Red Blood Cells 2.94 10^6/uL (4.5-5.90); Red Cell Distribution Width 12.9 % (11.8-14.3); White Blood Cell 13.4 10^3/uL (4.4-10.8)
[2024-03-05 07:32] LABS: Anion Gap 9 (5-15); Calcium 7.9 mg/dL (8.7-10.4); Carbon Dioxide 24 mmol/L (20-30)
[2024-03-05 07:37] LABS: BUN/Creatinine Ratio 7.4 (10.0-20.0); Blood Urea Nitrogen 37 mg/dL (9-23); Glucose 127 mg/dL (74-106)
[2024-03-05 07:41] LABS: Sodium 133 mmol/L (136-145)
[2024-03-05 09:46] LABS: Magnesium 1.4 mg/dL (1.6-2.6)
[2024-03-05 09:47] LABS: Albumin 3.5 g/dL (3.2-4.8)
[2024-03-05] MEDS: INSULIN LANTUS (GLARGINE) 1 /0.01ml (100units/ml) SC SCH (10:00)
[2024-03-05] MEDS: INSULIN LANTUS (GLARGINE) 1 /0.01ml (100units/ml) SC ONE (12:03)
[2024-03-05] MEDS: POTASSIUM CHLORIDE 40 MEQ, LIDOCAINE 1% (LOCAL ANESTH.) 4 ML in SODIUM CHL 0.9% 250 ML IV ONE (12:05)
[2024-03-05 13:32] LABS: Creatinine, Urine 122.7 mg/dL (30.0-125.0)
[2024-03-05 13:36] LABS: Protein, Urine 441.4 mg/dL (0.0-11.9)
[2024-03-05] MEDS: MAGNESIUM SULFATE 1GM/100ML 100 ML IV ONE (14:15)
[2024-03-05] MEDS: MAGNESIUM SULFATE 1GM/100ML 100 ML IV SCH (15:00)
[2024-03-05 16:06] LABS: % Iron Saturation 22.8 % (20-55)
[2024-03-05] MEDS: FUROSEMIDE 100 MG/10ML VIAL IV ONE (18:47)
[2024-03-05] MEDS: SODIUM CHLORIDE 0.9% 1,000 ML IV SCH (19:19)
[2024-03-05] MEDS: NYSTATIN (MOUTH-THROAT) 500,000 UNITS/5 ML SUSP MT SCH (22:00)
[2024-03-06 05:00] VITALS: BP 167/101; PULSE 94; RESP 18; TEMP 98.7; O2SAT 99
[2024-03-06 07:10] LABS: Basophils # (auto) 0.1 10 ^3/uL (0-0.2); Basophils % (auto) 0.5 % (0.0-2.0); Eosinophils # (auto) 0 10 ^3/uL (0-0.8); Eosinophils % (auto) 0.4 % (0.0-7.0); Hematocrit 25.2 % (41.0-53.0); Hemoglobin 8.6 g/dL (13.5-17.5); Lymphocytes # (auto) 2.1 10 ^3/uL (0.4-5.4); Lymphocytes % (auto) 19.3 % (10.0-50.0); Mean Corpuscular Hemoglobin 29.8 pg (28.0-32.0); Mean Corpuscular Volume 87.8 fL (80.0-100.0); Monocytes # (auto) 0.8 10 ^3/uL (0-1.3); Monocytes % (auto) 7.6 % (0.0-12.0); Neutrophils % (auto) 72.2 % (37.0-80.0); Platelet Count (auto) 275 10^3/uL (140-450); Red Blood Cells 2.87 10^6/uL (4.5-5.90); Red Cell Distribution Width 12.6 % (11.8-14.3); White Blood Cell 11.1 10^3/uL (4.4-10.8)
[2024-03-06 07:22] LABS: Chloride 102 mmol/L (98-107); Potassium 3.4 mmol/L (3.5-5.1); Sodium 135 mmol/L (136-145)
[2024-03-06 07:23] LABS: Anion Gap 7 (5-15); Carbon Dioxide 26 mmol/L (20-30)
[2024-03-06 07:24] LABS: Calcium 8.2 mg/dL (8.7-10.4)
[2024-03-06 07:28] LABS: Glucose 123 mg/dL (74-106)
[2024-03-06 07:29] LABS: BUN/Creatinine Ratio 6.8 (10.0-20.0); Blood Urea Nitrogen 34 mg/dL (9-23)
[2024-03-06] MEDS: POTASSIUM CHL 20MEQ/100ML 100 ML IV SCH (08:00)
[2024-03-06 10:37] VITALS: BP 172/99; PULSE 95; RESP 17; TEMP 98.1; O2SAT 98
[2024-03-06] MEDS: INSULIN LANTUS (GLARGINE) 1 /0.01ml (100units/ml) SC SCH (10:44)
[2024-03-06 11:52] LABS: Folate (Folic Acid) 10.37 ng/mL (>5.38)
[2024-03-06 14:44] VITALS: BP 155/92; PULSE 92; RESP 16; TEMP 98.2; O2SAT 98
[2024-03-06] MEDS ORDERED: GAB100C PO (15:31)
[2024-03-06] MEDS ORDERED: INSLANTI SC (15:31)
[2024-03-06] MEDS ORDERED: CARV-214 PO (15:31)
[2024-03-06] MEDS ORDERED: SODI650T PO (15:31)
[2024-03-06] MEDS ORDERED: NYS5LQ MT (15:31)
[2024-03-06] MEDS ORDERED: PANT40T PO (15:31)
[2024-03-06] MEDS ORDERED: HYDR25TA87 PO (15:31)
[2024-03-06] MEDS ORDERED: ACET-1882 PO (15:31)
[2024-03-06] MEDS ORDERED: SUCR1SUS26 GT (15:31)
[2024-03-06] MEDS ORDERED: RIFA550T PO (15:31)
[2024-03-06] MEDS ORDERED: NIFE1TAB31 PO (15:31)
[2024-03-06] MEDS ORDERED: ATOR20TA50 PO (15:31)
[2024-03-06] MEDS: rifAXIMin 550 MG TAB PO SCH (16:23)
[2024-03-06] MEDS: GABAPENTIN 100 MG CAP PO SCH (16:25)
[2024-03-06] MEDS: POTASSIUM CHL 20 Meq TABLET PO ONE (16:33)
[2024-03-06 17:00] VITALS: BP 115/60; PULSE 96; RESP 17; TEMP 98.3; O2SAT 98
[2024-03-06 19:35] VITALS: BP 155/92; PULSE 92; TEMP 36.8
== END 2024-03-06 21:46 | disposition home or self-care (01) | DRG 242 ==
LOC: EDBD 21:32 → EDUNIT# 21:32 → ER 21:32 → OVERFLOW 03-03 00:57 → CENTRAL 03-03 17:58 → TELE-CENTR 03-05 08:09 → CENTRAL 03-06 08:15
PROVIDERS: ADMIT Internal Medicine Pulmonary Disease; ATTEND Internal Medicine Gastroenterology
PROC: 0DB68ZX Excision of Stomach, Via Natural or Artificial Opening Endoscopic, Diagnostic (ICD-10-PCS; 2024-03-04)
PROC: 0DB38ZX Excision of Lower Esophagus, Via Natural or Artificial Opening Endoscopic, Diagnostic (ICD-10-PCS; 2024-03-04)
PROC: 0DB98ZX Excision of Duodenum, Via Natural or Artificial Opening Endoscopic, Diagnostic (ICD-10-PCS; principal; 2024-03-04 12:20)
DX: K22.11 Ulcer of esophagus with bleeding (principal); N17.9 Acute kidney failure, unspecified; E10.10 Type 1 diabetes mellitus with ketoacidosis without coma; E10.22 Type 1 diabetes mellitus with diabetic chronic kidney disease; E83.51 Hypocalcemia; N25.81 Secondary hyperparathyroidism of renal origin; D64.9 Anemia, unspecified; E78.5 Hyperlipidemia, unspecified; E83.42 Hypomagnesemia; K21.9 Gastro-esophageal reflux disease without esophagitis; E86.0 Dehydration; I12.9 Hypertensive chronic kidney disease with stage 1 through stage 4 chronic kidney disease, or unspecified chronic kidney disease; K44.9 Diaphragmatic hernia without obstruction or gangrene; N18.30 Chronic kidney disease, stage 3 unspecified; F17.210 Nicotine dependence, cigarettes, uncomplicated; I16.1 Hypertensive emergency; F10.139 Alcohol abuse with withdrawal, unspecified; Y90.9 Presence of alcohol in blood, level not specified; E86.9 Volume depletion, unspecified; E87.6 Hypokalemia; F12.20 Cannabis dependence, uncomplicated; K29.70 Gastritis, unspecified, without bleeding; Z79.4 Long term (current) use of insulin; Z88.1 Allergy status to other antibiotic agents; Z88.0 Allergy status to penicillin; Z88.8 Allergy status to other drugs, medicaments and biological substances; Z82.49 Family history of ischemic heart disease and other diseases of the circulatory system; Z83.3 Family history of diabetes mellitus; Z91.148 Patient's other noncompliance with medication regimen for other reason; Z71.6 Tobacco abuse counseling
CPT/HCPCS: 36415; 36600; 74176; 76705; 76775; 80048; 80053; 80061; 80307; 80320; 81001; 82010; 82040; 82043; 82306; 82570; 82607; 82728; 82746; 82805; 82962; 83036; 83540; 83550; 83735; 83930; 83935; 83970; 84100; 84156; 84300; 84443; 84550; 85025; 85610; 85730; 93005; G0378; J1815; J2001; J2405; J2470; J2704

== ENCOUNTER 2024-04-16 09:21 | Inpatient (IN) | payer MEDICAID ==
[~2024-04-16] VITALS: Ht 175.3 cm; Wt 58.4 kg
[~2024-04-16 09:21] MED LIST changes: +ACET-1882 PO; +ATOR20TA50 PO; +CARV-214 PO; +GAB100C PO; +HYDR25TA87 PO; +INSLANTI SC; +NIFE1TAB31 PO; +NYS5LQ MT; +PANT40T PO; +RIFA550T PO; +SODI650T PO; +SUCR1SUS26 GT
[2024-04-16 09:50] VITALS: PULSE 126; RESP 18; TEMP 98.8; O2SAT 98
[2024-04-16] MEDS: LACTATED RINGER'S 1,000 ML IV ONE (09:53)
[2024-04-16 10:05] LABS: Base Excess -13.2 mmol/L (-2.0-3.0)
[2024-04-16 10:13] LABS: Alanine Aminotransferase 15 U/L (7-40); Alkaline Phosphatase 125 U/L (46-116); Anion Gap 14 (5-15); Aspartate Aminotransferase 12 U/L (13-40); BUN/Creatinine Ratio 7.7 (10.0-20.0); Basophils # (auto) 0.1 10 ^3/uL (0-0.2); Basophils % (auto) 1.2 % (0.0-2.0); Bilirubin, Total 0.3 mg/dL (0.2-1.0); Blood Urea Nitrogen 47 mg/dL (9-23); Calcium 9.1 mg/dL (8.7-10.4); Carbon Dioxide 14 mmol/L (20-31); Chloride 107 mmol/L (98-107); Eosinophils # (auto) 0.1 10 ^3/uL (0-0.8); Eosinophils % (auto) 0.9 % (0.0-7.0); Glucose 290 mg/dL (74-106); Hematocrit 27.3 % (41.0-53.0); Hemoglobin 9.1 g/dL (13.5-17.5); Lymphocytes # (auto) 3.1 10 ^3/uL (0.4-5.4); Lymphocytes % (auto) 33.4 % (10.0-50.0); Magnesium 1.8 mg/dL (1.6-2.6); Mean Corpuscular Hgb Conc. 33.3 g/dL (32.0-36.0); Mean Corpuscular Volume 90.1 fL (80.0-100.0); Monocytes # (auto) 0.6 10 ^3/uL (0-1.3); Monocytes % (auto) 6.3 % (0.0-12.0); Neutrophils # (auto) 5.3 10 ^3/uL (1.6-8.6); Neutrophils % (auto) 58.2 % (37.0-80.0); Platelet Count (auto) 363 10^3/uL (140-450); Potassium 4.7 mmol/L (3.5-5.1); Red Blood Cells 3.03 10^6/uL (4.5-5.90); Red Cell Distribution Width 13.2 % (11.8-14.3); Sodium 135 mmol/L (136-145); White Blood Cell 9.2 10^3/uL (4.4-10.8)
[2024-04-16 10:14] LABS: Total Protein 7.2 g/dL (5.7-8.2)
[2024-04-16 10:41] LABS: Amphetamine Screen, Urine Neg (NEGATIVE); Barbiturate Scree,Urine Neg (NEGATIVE); Benzodiazephine Screen, Urine Neg (NEGATIVE); Cocaine Screen, Urine Neg (NEGATIVE); Opiate Scree,Urine Neg (NEGATIVE); Phencyclidine Screen, Urine Neg (NEGATIVE)
[2024-04-16 10:42] LABS: Cannabinoid Screen, Urine Pos (NEGATIVE)
[2024-04-16 11:05] LABS: COVID19 ANTIGEN SOFIA FIA NEGATIVE (NEGATIVE)
[2024-04-16 11:06] LABS: Rapid Influenza A Negative (Negative); Rapid Influenza B Negative (Negative)
[2024-04-16 12:24] LABS: Urine Bacteria None Seen /hpf (None Seen)
[2024-04-16] MEDS ORDERED: DEXTROSE (50%) 50ML SYRG IV PRN (12:30)
[2024-04-16 12:36] LABS: Urine Blood 1+ /uL (Negative); Urine Clarity Clear (Clear); Urine Color Light-Yellow (Yellow); Urine Protein, UAD 3+ (Negative); Urine Specific Gravity 1.013 (1.001-1.035); Urine Urobilinogen Normal (Negative); Urine WBC 1 /hpf (0 - 3)
[2024-04-16] MEDS: ACETAMINOPHEN 325 MG TAB PO ONE (12:57)
[2024-04-16] MEDS: ONDANSETRON ODT 4 MG TAB PO ONE (12:58)
[2024-04-16] MEDS ORDERED: LABETALOL HCL 20 MG/4 ML VL IV PRN (13:15)
[2024-04-16] MEDS ORDERED: MORPHINE SULFATE INJ 2 MG/ml SYRG IV PRN (13:15)
[2024-04-16] MEDS ORDERED: NITROGLYCERIN 0.4 MG SL TAB SL PRN (13:15)
[2024-04-16] MEDS ORDERED: HYDR100T10 PO (13:23)
[2024-04-16] MEDS ORDERED: FURO20TA4 PO (13:23)
[2024-04-16] MEDS: hydrALAZINE HCL 25 MG TAB PO SCH (13:53)
[2024-04-16] MEDS: ONDANSETRON HCL 4 MG/2 ML VIAL IV PRN (13:54)
[2024-04-16] MEDS: MORPHINE SULFATE INJ 2 MG/ml SYRG IV PRN (13:54)
[2024-04-16] MEDS: InsuLIN REG 1unit/0.01ml Soln (100units/ml) SC SCH (16:00)
[2024-04-16] MEDS: ACCU-CHEK COMFORT CURVE STRIP VI SCH (16:15)
[2024-04-16 20:00] VITALS: BP 165/102; PULSE 110; RESP 13; O2SAT 99
[2024-04-16] MEDS ORDERED: ATORVASTATIN 20 MG TAB PO SCH (22:00)
[2024-04-17] MEDS ORDERED: NIFEdipine ER 30 MG TAB PO SCH (10:00)
== END 2024-04-16 20:45 | disposition left against medical advice (07) | DRG 199 ==
LOC: ER 09:21 → TELE 13:15
PROVIDERS: ADMIT Registered Nurse General Practice; ATTEND Registered Nurse General Practice
DX: I16.0 Hypertensive urgency (principal); N17.9 Acute kidney failure, unspecified; E10.22 Type 1 diabetes mellitus with diabetic chronic kidney disease; E78.5 Hyperlipidemia, unspecified; D64.9 Anemia, unspecified; F17.210 Nicotine dependence, cigarettes, uncomplicated; Z53.29 Procedure and treatment not carried out because of patient's decision for other reasons; N18.9 Chronic kidney disease, unspecified; Z79.4 Long term (current) use of insulin; Z88.0 Allergy status to penicillin
CPT/HCPCS: 36415; 36600; 80053; 80307; 81001; 82010; 82805; 83735; 84100; 85025; 87426; 87804; 96374; 96375; G0378; J2405

== ENCOUNTER 2024-05-08 09:22 | Inpatient (IN) | payer MEDICAID ==
[~2024-05-08] VITALS: Ht 175.3 cm; Wt 72.4 kg
[~2024-05-08 09:22] MED LIST changes: +CARV6.2551 PO; +ERGO1CAP12 PO; +FURO20TA4 PO; +HYDR100T10 PO; +HYDR50TA47 PO; +INSU100I52 SC; +LISI40TA16 PO; +METO1TAB9 PO; +ZOFR4T PO; +[UNRECOGNIZED DRUG - CODE]; +[UNRECOGNIZED DRUG - CODE]
[2024-05-08] MEDS: INSULIN DRIP 100 UNIT/100ML 100 ML IV SCH (09:45)
[2024-05-08] MEDS ORDERED: DEXTROSE (50%) 50ML SYRG IV PRN (09:45)
[2024-05-08] MEDS: INSULIN LANTUS (GLARGINE) 1 /0.01ml (100units/ml) SC ONE (09:48)
[2024-05-08 10:09] LABS: Basophils # (auto) 0.1 10 ^3/uL (0-0.2); Eosinophils # (auto) 0.1 10 ^3/uL (0-0.8); Hemoglobin 7.9 g/dL (13.5-17.5); Lymphocytes # (auto) 1.7 10 ^3/uL (0.4-5.4); Monocytes # (auto) 0.5 10 ^3/uL (0-1.3)
[2024-05-08 10:11] LABS: Basophils % (auto) 1.1 % (0.0-2.0); Hematocrit 23.2 % (41.0-53.0); Lymphocytes % (auto) 19.1 % (10.0-50.0); Mean Corpuscular Hemoglobin 30.5 pg (28.0-32.0); Mean Corpuscular Hgb Conc. 34.1 g/dL (32.0-36.0); Mean Corpuscular Volume 89.6 fL (80.0-100.0); Monocytes % (auto) 5.6 % (0.0-12.0); Neutrophils # (auto) 6.6 10 ^3/uL (1.6-8.6); Neutrophils % (auto) 73.2 % (37.0-80.0); Platelet Count (auto) 322 10^3/uL (140-450); Red Blood Cells 2.59 10^6/uL (4.5-5.90); Red Cell Distribution Width 13.2 % (11.8-14.3)
[2024-05-08 10:16] LABS: Chloride 109 mmol/L (98-107); Potassium 4.4 mmol/L (3.5-5.1); Sodium 141 mmol/L (136-145)
[2024-05-08] MEDS: SODIUM CHLORIDE 0.9% 1,000 ML IV SCH ×4 (10:16→14:36)
[2024-05-08 10:17] LABS: Anion Gap 11 (5-15); Carbon Dioxide 21 mmol/L (20-31)
--- NOTE | 2024-05-08 10:19 | ED.PDOC ---
GI ASSESSMENT HPI Comments 29 year old male presents to the ED with chief complaint of abdominal pain. Patient reports that he has been experiencing epigastric abdominal pain with associated nausea and vomiting for the past 3 days. Patient relays that he is diabetic and has been taking his insulin as normal. Patient denies any diarrhea, fever, chills, weakness, dizziness, or hematemesis. Chief Complaint: Abdominal Pain Time Seen by MD: 10:17 Primary Care Provider: VINCENT Reviewed Notes: Nurses Notes, Medications, Allergies Allergies: Coded Allergies: Penicillins (Verified Allergy, Severe, 12/27/23) Home Meds Active Scripts Ondansetron Odt 4MG Tab (ZOFRAN PO) 4 Mg Tb, 4 MG PO TIDPRN PRN for 3 Days, #9 TAB ODT TAB-DISSOLVE IN MOUTH, THEN SWALLOW Prov:HEENA BLACKWOOD MD 04/22/24 Reported Medications Pantoprazole Sodium Sesquihydr (Pantoprazole Sodium) 40 Mg Tab, 1 TAB PO DAILY 12/27/23 Hydralazine HCl (Hydralazine HCl) 25 Mg Tab, 1 TAB PO TID 12/27/23 Ergocalciferol (Vitamin D) 50,000 Unit Cap, 1 CAP PO QWEEKLY 12/27/23 Metoprolol Succinate (Metoprolol Succinate Er) 100 Mg Tab, 1 TAB PO DAILY 12/27/23 Carvedilol (Carvedilol) 6.25 Mg Tab, 1 TAB PO BID 12/27/23 Atorvastatin Calcium (ATORVASTATIN CALCIUM) 20 Mg Tab, 1 TAB PO DAILY 12/27/23 Furosemide (Furosemide) 20 Mg Tab, 1 TAB PO BID 12/27/23 Lisinopril (Lisinopril) 40 Mg Tab, 1 TAB PO DAILY 06/06/23 Insulin Lispro (Insulin Lispro) 100 Unit/Ml Inj, SC 06/06/23 Insulin Glargine (Lantus) 100 Unit/Ml Inj, SC 06/06/23 Hydralazine Hcl (Hydralazine Hcl) 50 Mg Tab, 1 TAB PO QID 06/06/23 Continuous Blood Glucose Syste (Dexcom G6 Transmitter) 1 Mis Mis, UD 06/06/23 Continuous Blood Glucose Syste (Dexcom G6 Sensor) 1 Mis Mis, UD 06/06/23 Information Source: Patient Mode of Arrival: Ambulatory Duration: Since onset Prehospital treatment: None Quality: Aching Vomitus: Watery Stool: Normal Severity: Moderate Recent: None Recent Hx of: Diabetes Pain Location: Epigastric Modifying Factors: Nothing Associated sign and symptoms: Nausea, Vomiting, Abdominal Pain Past Medical History PAST MEDICAL HISTORY: CKF, DM, HTN Surgical History: Unknown Family History Family History: Reviewed,noncontributory to illness Social History Smoker: Non-Smoker Alcohol: Denies ETOH Use Drugs: Denies Drug Use Lives In: Home Constitutional: denies: chills, diaphoresis, fatigue, fever, malaise, sweats, weakness, others EENTM: denies: blurred vision, double vision, ear bleeding, ear discharge, ear drainage, ear pain, ear ringing, eye pain, eye redness, hearing loss, mouth pain, mouth swelling, nasal discharge, nose bleeding, nose congestion, nose pain, photophobia, tearing, throat pain, throat swelling, voice changes, others Respiratory: denies: cough, hemoptysis, orthopnea, SOB at rest, shortness of breath, SOB with excertion, stridor, wheezing, others Cardiovascular: denies: chest pain, dizzy spells, diaphoresis, Dyspnea on exertion, edema, irregular heart beat, left arm pain, lightheadedness, palpitations, PND, syncope, others Gastrointestinal: reports: abdominal pain, nausea, vomiting; denies: abdomen distended, blood streaked bowels, constipated, diarrhea, dysphagia, difficulty swallowing, hematemesis, melena, poor appetite, poor fluid intake, rectal bleeding, rectal pain, others Genitourinary: denies: burning, dysuria, flank pain, frequency, hematuria, incontinence, penile discharge, penile sore, pain, testicle pain, testicle swelling, urgency, others Neurological: denies: dizziness, fainting, headache, left sided numbness, left sided weakness, numbness, paresthesia, pre-existing deficit, right sided numbness, right sided weakness, seizure, speech problems, tingling, tremors, weakness, others Musculoskeletal: denies: back pain, gout, joint pain, joint swelling, muscle pain, muscle stiffness, neck pain, others Integumetry: denies: bruises, change in color, change in hair/nails, dryness, laceration, lesions, lumps, rash, wounds, others Allergic/Immunocompromised: denies: Difficulty Healing, Frequent Infections, Hives, Itching, others Hematologic/Lymphatic: denies: anemia, blood clots, easy bleeding, easy bruising, swollen glands, others Endocrine: denies: excessive hunger, excessive sweating, excessive thirst, excessive urination, flushing, intolerance to cold, intolerance to heat, unexplained weight gain, unexplained weight loss, others Psychiatric: denies: anxiety, bipolar disorder, depression, hopeless, panic disorder, schizophrenia, sleepless, suicidal, others All Other Systems: Reviewed and Negative Physical Exam General Appearance: Moderate Distress, Normal HEENT: Normal ENT Inspection, PERRL/EOMI Neck: Full Range of Motion, Non-Tender, Normal, Normal Inspection Respiratory: Chest Non-Tender, Lungs Clear, No Accessory Muscle Use, No Respiratory Distress, Normal Breath Sounds Cardiovascular: No Edema, No JVD, No Murmur, No Gallop, Normal Peripheral Pulses, Tachycardia Breast Exam: Deferred Gastrointestinal: No Organomegaly, Non Tender, No Pulsatile Mass, Normal Bowel Sounds, Soft Genitalia: Deferred Pelvic: Deferred Rectal: Deferred Extremities: No calf tenderness, Normal capillary refill, Normal inspection, Normal range of motion, Non-tender, No pedal edema Musculoskeletal : Apperance: Normal 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 Was a procedure done?: No GI differential Dx Differential Diagnosis: Constipation, Diverticular disease, Esophagitis, Gastritis/PUD, Gastroenteritis X-Ray, Labs, Meds, VS Vital Signs Date Time Temp Pulse Resp B/P (MAP) Pulse Ox O2 Delivery O2 Flow Rate FiO2 05/08/24 09:39 98.7 116 20 176/116 (136) 99 98.7 05/08/24 09:39 98.7 116 20 176/116 (136) 99 Lab Test 05/08/24 10:40 05/08/24 10:19 05/08/24 09:55 05/08/24 09:46 Range/Units POC Glucose 135 H 135 H 70-106 mg/dl Blood Gas Specimen Type Arterial Blood Gas Sample Site Right radial Blood Gas Patient Temperature 37.0 Arterial Blood Date Drawn [id number] Arterial Blood pH 7.402 7.350-7.450 Arterial Blood Partial Pressure CO2 31.4 L 35.0-48.0 mmHg Arterial Blood Partial Pressure O2 95.3 83.0-108.0 mmHg Arterial Blood HCO3 19.1 L 21.0-28.0 mmol/L Arterial Blood Oxygen Saturation 97.0 94.0-98.0 % Arterial Blood Base Excess -5.0 L -2.0-3.0 mmol/L Arterial Blood Oxyhemoglobin 96.0 94.0-98.0 % Arterial Blood Carboxyhemoglobin 0.3 L 0.5-1.5 % Arterial Blood Methemoglobin 0.7 0.0-1.5 % Matt Test Yes Blood Gas Total Hemoglobin 8.30 L 13.5-17.5 g/dL Blood Gas Modality Room air FiO2 % 21.0 White Blood Count 9.0 4.4-10.8 10^3/uL Red Blood Count 2.59 L 4.5-5.90 10^6/uL Hemoglobin 7.9 L 13.5-17.5 g/dL Hematocrit 23.2 L 41.0-53.0 % Mean Corpuscular Volume 89.6 80.0-100.0 fL Mean Corpuscular Hemoglobin 30.5 28.0-32.0 pg Mean Corpuscular Hemoglobin Concent 34.1 32.0-36.0 g/dL Red Cell Distribution Width 13.2 11.8-14.3 % Platelet Count 322 140-450 10^3/uL Mean Platelet Volume 8.3 6.9-10.8 fL Neutrophils (%) (Auto) 73.2 37.0-80.0 % Lymphocytes (%) (Auto) 19.1 10.0-50.0 % Monocytes (%) (Auto) 5.6 0.0-12.0 % Eosinophils (%) (Auto) 1.0 0.0-7.0 % Basophils (%) (Auto) 1.1 0.0-2.0 % Neutrophils # (Auto) 6.6 1.6-8.6 10 ^3/uL Lymphocytes # (Auto) 1.7 0.4-5.4 10 ^3/uL Monocytes # (Auto) 0.5 0-1.3 10 ^3/uL Eosinophils # (Auto) 0.1 0-0.8 10 ^3/uL Basophils # (Auto) 0.1 0-0.2 10 ^3/uL Nucleated Red Blood Cells 0.0 % Sodium Level 141 136-145 mmol/L Potassium Level 4.4 3.5-5.1 mmol/L Chloride Level 109 H 98-107 mmol/L Carbon Dioxide Level 21 20-31 mmol/L Anion Gap 11 5-15 Blood Urea Nitrogen 53 H 9-23 mg/dL Creatinine 7.20 H 0.700-1.30 mg/dL Glomerular Filtration Rate Calc 10 >90 mL/min BUN/Creatinine Ratio 7.4 L 10.0-20.0 Serum Glucose 142 H 74-106 mg/dL Serum Osmolality 309 H 278-298 mOsm/kg Calcium Level 9.0 8.7-10.4 mg/dL Phosphorus Level 5.8 H 2.4-5.1 mg/dL Magnesium Level 1.9 1.6-2.6 mg/dL Beta-Hydroxybutyric Acid 0.245 < 0.4 mmol/L Current Medications Medications (Trade) Dose Ordered Sig/Kiran Route Start Time Stop Time Status Last Admin Sodium Chloride 1,000 ml @ 500 mls/hr Q2H IV 05/08/24 09:45 05/08/24 13:44 05/08/24 10:16 Diagnostic Test (Pha) (Accu-Chek Comfort Curve T) 1 strip Q90MIN 05/08/24 10:30 05/08/24 10:41 Patient alert. History of diabetes. Vitals stable. Answering all questions. Establish intravenous access. Was given fluids. Kidney function elevated. Continues to have abdominal pain. Tachycardia. He is not in DKA. Reviewed his previous visit. Explained to the patient. Continue cardiac monitoring. Time of 1ST Reevaluation: 11:17 Reevaluation 1ST: Unchanged Patient Education/Counseling: Diagnosis, Treatment Family Education/Counseling: No Family Present Departure 1 Departure Time of Disposition: 11:41 Impression: Primary Impression: Acute kidney injury Additional Impression: Dehydration Disposition: ADMITTED INPATIENT Admit to: Med Surg Condition: Guarded Critical Care Note Critical Care Time?: Yes (45 min-critical care time only) Stability Stability form required: No Heart Score Heart Score: Heart Score Response (Comments) Value History N/A 0 EKG N/A 0 Age N/A 0 Risk Factors N/A 0 Troponin N/A 0 Total 0 I personally scribed for VENU ASHLEY MD ([email or web address]) on 05/08/24 at 10:19. Electronically submitted by Sudhir Lindsay ([email or web address]). VENU ASHLEY MD May 08, 2024 10:19
[2024-05-08 10:22] LABS: Glucose 142 mg/dL (74-106)
[2024-05-08 10:23] LABS: BUN/Creatinine Ratio 7.4 (10.0-20.0); Blood Urea Nitrogen 53 mg/dL (9-23); Magnesium 1.9 mg/dL (1.6-2.6)
[2024-05-08 10:25] LABS: Phosphorus 5.8 mg/dL (2.4-5.1)
[2024-05-08] MEDS: ACCU-CHEK COMFORT CURVE STRIP VI SCH ×2 (10:41→20:00)
[2024-05-08 11:05] VITALS: PULSE 116; RESP 19; O2SAT 99
[2024-05-08] MEDS ORDERED: ERGOCALCIFEROL 50,000 UNIT(1.25MG) CAP PO SCH (13:30)
[2024-05-08] MEDS ORDERED: DOCUSATE SOD 100 MG CAP PO PRN (13:30)
[2024-05-08] MEDS ORDERED: ONDANSETRON HCL 4 MG/2 ML VIAL IV PRN (13:30)
[2024-05-08] MEDS ORDERED: TEMAZEPAM 15 MG CAP PO PRN (13:30)
[2024-05-08] MEDS ORDERED: HYDROcodone-ACET 5/325MG TAB PO PRN (13:30)
--- NOTE | 2024-05-08 13:52 | DVHHP2 ---
History of Present Illness Reason for Visit: Abdominal Pain History of Present Illness 29 yo male with history Diabetes, CKD, HTN urgency comes to the ed for evaluation of abdominal pain stated to be associated with nausea and vomiting for the past few days patient show to have electrolyte imbalances but denies being on HD was recommended for evaluation of admission for further evaluation and management Cardiovascular: HTN Renal/: Chronic renal insuff Endocrine: Diabetes Review of Systems Constitutional: Yes: Weakness; No: Fever, Chills, Sweats, Malaise, Other Eyes: No: Pain, Vision change, Conjunctivae inflammation, Eyelid inflammation, Other, Redness ENT: No: Ear pain, Ear discharge, Nose pain, Nose discharge, Nose congestion, Mouth pain, Mouth swelling, Throat pain, Throat swelling, Other Respiratory: No: Cough, Dry, Shortness of breath, SOB with excertion, Wheezing, Hemoptysis, Pleuritic Pain, Sputum, Wheezing, Other Gastrointestinal: Nausea, Vomiting, Abdominal Pain; No: Diarrhea, Constipation, Melena, Hematochezia, Other Genitourinary: No Dysuria, No Frequency, No Incontinence, No Hematuria, No Retention, No Other Musculoskeletal: No: other, neck pain, shoulder pain, arm pain, back pain, hand pain, leg pain, foot pain Skin: No: Rash, Lesions, Jaundice, Bruising, Other Neurological: No: Weakness, Numbness, Incoordination, Change in speech, Confusion, Seizures, Other Allergies: Coded Allergies: Penicillins (Verified Allergy, Severe, 12/27/23) Medications Current Medications Medications Dose Ordered Sig/Kiran Route Start Time Stop Time Status Last Admin Dose Admin Sodium Chloride 1,000 ml @ 500 mls/hr Q2H IV 05/08/24 09:45 05/08/24 13:44 05/08/24 10:16 500 MLS/HR Sodium Chloride 1,000 ml @ 250 mls/hr Q4H IV 05/08/24 13:45 05/08/24 15:44 Sodium Chloride 1,000 ml @ 150 mls/hr Q6H40M IV 05/08/24 15:45 Insulin Human (Reg)/Sodium Chloride 100 ml @ 0.5 mls/hr Q24H IV 05/08/24 09:45 Dextrose 50 ml UD PRN IV 05/08/24 09:45 Diagnostic Test (Pha) 1 strip Q90MIN 05/08/24 10:30 05/08/24 10:41 1 STRIP Insulin Glargine 15 units DAILY SC 05/09/24 10:00 Exam Vital Signs Vital Signs Date Time Temp Pulse Resp B/P (MAP) Pulse Ox O2 Delivery O2 Flow Rate FiO2 05/08/24 09:39 98.7 116 20 176/116 (136) 99 98.7 General Appearance: Alert, Oriented X3, Cooperative HEENT: Atraumatic, PERRLA Respiratory: Clear to auscultation, Normal air movement Cardiovascular: Regular rate, Normal S1, Normal S2 Abdominal: Normal bowel sounds, Soft, No tenderness Extremities: No clubbing, No cyanosis, No edema Skin: No rashes, No breakdown, No significant lesion Neuro: Normal gait, Normal speech, Strength at 5/5 X4 ext Psych/Mental Status: Mood NL Labs/Xrays Labs Test 05/08/24 10:40 05/08/24 10:19 05/08/24 09:55 Range/Units POC Glucose 135 H 70-106 mg/dl Blood Gas Specimen Type Arterial Blood Gas Sample Site Right radial Blood Gas Patient Temperature 37.0 Arterial Blood Date Drawn [id number] Arterial Blood pH 7.402 7.350-7.450 Arterial Blood Partial Pressure CO2 31.4 L 35.0-48.0 mmHg Arterial Blood Partial Pressure O2 95.3 83.0-108.0 mmHg Arterial Blood HCO3 19.1 L 21.0-28.0 mmol/L Arterial Blood Oxygen Saturation 97.0 94.0-98.0 % Arterial Blood Base Excess -5.0 L -2.0-3.0 mmol/L Arterial Blood Oxyhemoglobin 96.0 94.0-98.0 % Arterial Blood Carboxyhemoglobin 0.3 L 0.5-1.5 % Arterial Blood Methemoglobin 0.7 0.0-1.5 % Matt Test Yes Blood Gas Total Hemoglobin 8.30 L 13.5-17.5 g/dL Blood Gas Modality Room air FiO2 % 21.0 White Blood Count 9.0 4.4-10.8 10^3/uL Red Blood Count 2.59 L 4.5-5.90 10^6/uL Hemoglobin 7.9 L 13.5-17.5 g/dL Hematocrit 23.2 L 41.0-53.0 % Mean Corpuscular Volume 89.6 80.0-100.0 fL Mean Corpuscular Hemoglobin 30.5 28.0-32.0 pg Mean Corpuscular Hemoglobin Concent 34.1 32.0-36.0 g/dL Red Cell Distribution Width 13.2 11.8-14.3 % Platelet Count 322 140-450 10^3/uL Mean Platelet Volume 8.3 6.9-10.8 fL Neutrophils (%) (Auto) 73.2 37.0-80.0 % Lymphocytes (%) (Auto) 19.1 10.0-50.0 % Monocytes (%) (Auto) 5.6 0.0-12.0 % Eosinophils (%) (Auto) 1.0 0.0-7.0 % Basophils (%) (Auto) 1.1 0.0-2.0 % Neutrophils # (Auto) 6.6 1.6-8.6 10 ^3/uL Lymphocytes # (Auto) 1.7 0.4-5.4 10 ^3/uL Monocytes # (Auto) 0.5 0-1.3 10 ^3/uL Eosinophils # (Auto) 0.1 0-0.8 10 ^3/uL Basophils # (Auto) 0.1 0-0.2 10 ^3/uL Nucleated Red Blood Cells 0.0 % Sodium Level 141 136-145 mmol/L Potassium Level 4.4 3.5-5.1 mmol/L Chloride Level 109 H 98-107 mmol/L Carbon Dioxide Level 21 20-31 mmol/L Anion Gap 11 5-15 Blood Urea Nitrogen 53 H 9-23 mg/dL Creatinine 7.20 H 0.700-1.30 mg/dL Glomerular Filtration Rate Calc 10 >90 mL/min BUN/Creatinine Ratio 7.4 L 10.0-20.0 Serum Glucose 142 H 74-106 mg/dL Serum Osmolality 309 H 278-298 mOsm/kg Calcium Level 9.0 8.7-10.4 mg/dL Phosphorus Level 5.8 H 2.4-5.1 mg/dL Magnesium Level 1.9 1.6-2.6 mg/dL Beta-Hydroxybutyric Acid 0.245 < 0.4 mmol/L Assessment/Plan Assessment/Plan Admit Max[facility] HHS suspected Abdominal pain Hyperglycemia acute signs of renal failure Hyperemsis not DKA noted Insulin drip started in the ED downgrade when Drip no longer required 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 Israel Truong CONS 05/08/24 Verified -[place] 13:16 Atorvastatin (Lipitor) PHA 05/09/24 Verified 10:00 Ergocalciferol PHA 05/08/24 Verified (Vitamin D 50,000 13:30 Insulin Lantus PHA 05/08/24 Verified (Glargine) (Lantus) 18:00 Insulin Lispro PHA 05/08/24 Verified (Human) (Humalog) 17:00 Ondansetron Po PHA 05/08/24 Verified (Zofran Po) 13:30 Pantoprazole Tablet PHA 05/09/24 Verified (Protonix Tablet) 10:00 (Nf) Carvedilol PHA 05/08/24 Verified 22:00 (Nf) Hydralazine Hcl PHA 05/08/24 Verified 18:00 (Nf) Lisinopril PHA 05/09/24 Verified 10:00 (Nf) Metoprolol PHA 05/09/24 Verified Succinate (Metoprolol 10:00 Problem List: (1) Nausea & vomiting (2) Headache (3) Hyperglycemia (4) Vomiting (5) Renal insufficiency (6) Acute kidney injury (7) Dehydration (8) Hypertension Date of Service: May 08, 2024 Billing Provider: ADDISON LOU MD Common Visit Codes: [id number] INP/OBS CARE (HIGH) ADDISON LOU MD May 08, 2024 13:52
[2024-05-08 14:40] LABS: Urine Bacteria None Seen /hpf (None Seen)
[2024-05-08 14:41] LABS: Chloride 106 mmol/L (98-107)
[2024-05-08 14:42] LABS: Anion Gap 12 (5-15); Calcium 8.6 mg/dL (8.7-10.4); Carbon Dioxide 17 mmol/L (20-31)
[2024-05-08 14:47] LABS: BUN/Creatinine Ratio 7.3 (10.0-20.0); Blood Urea Nitrogen 49 mg/dL (9-23)
[2024-05-08] MEDS: MORPHINE SULFATE 4 MG/ML SYR/VIAL IV ONE (14:47)
[2024-05-08] MEDS: ONDANSETRON HCL 4 MG/2 ML VIAL IV ONE (14:48)
[2024-05-08 14:49] LABS: Glucose 387 mg/dL (74-106); Sodium 135 mmol/L (136-145)
[2024-05-08 14:51] LABS: Urine Blood 1+ /uL (Negative); Urine Clarity Clear (Clear); Urine Color Colorless (Yellow); Urine Protein, UAD 3+ (Negative); Urine Specific Gravity 1.011 (1.001-1.035); Urine Urobilinogen Normal (Negative); Urine WBC 1 /hpf (0 - 3); Urine pH 6.5 (5.0-9.0)
[2024-05-08 14:56] LABS: Potassium 6.6 mmol/L (3.5-5.1)
[2024-05-08] MEDS: ONDANSETRON ODT 4 MG TAB PO PRN (16:47)
[2024-05-08] MEDS: INSULIN LISPRO (HUMAN) 100 UNITS/ML ML SC SCH (16:57)
[2024-05-08 18:11] VITALS: BP 172/106; RESP 18
[2024-05-08] MEDS: FUROSEMIDE 40 MG/4 ML VIAL IV ONE (18:18)
[2024-05-08] MEDS: INSULIN LANTUS (GLARGINE) 1 /0.01ml (100units/ml) SC SCH (18:26)
[2024-05-08 18:35] VITALS: BP 165/101; RESP 23; O2SAT 98
[2024-05-08] MEDS: MORPHINE SULFATE INJ 2 MG/ml SYRG IV PRN (18:41)
[2024-05-08 18:47] LABS: Alanine Aminotransferase 23 U/L (7-40); Albumin 3.7 g/dL (3.2-4.8); Alkaline Phosphatase 123 U/L (46-116); Anion Gap 15 (5-15); Aspartate Aminotransferase 18 U/L (13-40); Bilirubin, Total 0.3 mg/dL (0.2-1.0); Blood Urea Nitrogen 45 mg/dL (9-23); Calcium 8.5 mg/dL (8.7-10.4); Carbon Dioxide 14 mmol/L (20-31); Chloride 111 mmol/L (98-107); Potassium 5.2 mmol/L (3.5-5.1); Sodium 140 mmol/L (136-145); Total Protein 6.8 g/dL (5.7-8.2)
[2024-05-08 19:04] LABS: Glucose 169 mg/dL (74-106)
[2024-05-08 19:30] VITALS: PULSE 121; RESP 16; O2SAT 97
[2024-05-08] MEDS: InsuLIN REG 1unit/0.01ml Soln (100units/ml) SC SCH (20:00)
[2024-05-08] MEDS ORDERED: CARVEDILOL 3.125 MG TAB PO SCH (22:00)
[2024-05-08] MEDS: ATORVASTATIN 20 MG TAB PO SCH (22:30)
[2024-05-08] MEDS: ONDANSETRON HCL 4 MG/2 ML VIAL IV PRN (23:59)
[2024-05-09] MEDS: cloNIDine HCL 0.1 MG TAB PO PRN (00:27)
[2024-05-09] MEDS: MAALOX PLUS or MAALOX 30 ML PO PRN (00:32)
[2024-05-09] MEDS: MORPHINE SULFATE INJ 2 MG/ml SYRG IV PRN (05:03)
[2024-05-09] MEDS: hydrALAZINE HCL 25 MG TAB PO SCH ×2 (06:27→14:34)
[2024-05-09 07:30] VITALS: PULSE 87; RESP 14; O2SAT 97
--- NOTE | 2024-05-09 09:48 | DVHPNRES ---
Progress Note Date Seen: May 09, 2024 Resident Creating Document: ADRIANA LAU RESIDENT Medical Necessity Reason Pt with a Central, PICC or Fol: No Subjective Review of Systems Patient is a 29 year old male with past medical history of diabetes, CKD stage IV/5 and hypertension, who came in due to abdominal pain along with nausea and vomiting. According to the patient, for the past 3 days he has been vomiting approximately 4-5 episodes of vomiting per day, denies noticing any blood in his vomitus. He notes his last vomiting episode was yesterday on 05/08/2024. Patient also notes an abdominal pain, generalized, dull and 8-10/10 in intensity , however, currently denies any abdominal pain. Patient is a poor historian. Reports having similar symptoms in the past leading to hospitalization. Past surgical history: Denies Home medications: Unsure however notes that he takes hydralazine at home Past Hospitalization: 2 weeks ago for similar complaints Social & Personal history: Patient lives with his fiancee and is currently unemployed. Uses marijuana occasionally. Denies using tobacco or alcohol. Allergies: Penicillin Patient seen and examined at bedside. Patient is somnolent but alert and oriented to time, place person and responding to all questions. General: Fatigue Eyes: No Pain, No Vision change, No Conjunctivae inflammation, No Eyelid inflammation, No Other, No Redness ENT: No Ear pain, No Ear discharge, No Nose pain, No Nose discharge, No Nose congestion, No Mouth pain, No Mouth swelling, No Throat pain, No Throat swelling, No Other Cardiovascular: No Chest Pain, No Palpitations, Dyspnea, No Edema, No Lt Headedness, No Other Respiratory: No Cough, No Dry, Shortness of breath, No SOB with exertion, No Wheezing, No Hemoptysis, No Pleuritic Pain, No Sputum, No Other Gastrointestinal: Nausea, Vomiting, No Abdominal Pain, No Diarrhea, No Constipation, No Melena, No Hematochezia, No Other Genitourinary: No Dysuria, No Frequency, No Incontinence, No Hematuria, No Retention, No Other Musculoskeletal: No other, No neck pain, No shoulder pain, No arm pain, No back pain, No hand pain, No leg pain, No foot pain Skin: No Rash, No Lesions, No Jaundice, No Bruising, No Other Objective vital signs Vital Sign Date Time Temp Pulse Resp B/P (MAP) Pulse Ox O2 Delivery O2 Flow Rate FiO2 05/09/24 09:34 97 16 146/96 05/09/24 08:00 97 05/09/24 07:30 Room Air* 0 21 05/08/24 19:30 98.1 98.1 Total Intake and Output 05/08/24 05/08/24 05/09/24 15:00 23:00 07:00 Intake Total 1500 ml 1000 ml Output Total 600 ml Balance 1500 ml 400 ml medications Current Medications Medications Dose Ordered Sig/Kiran Route Start Time Stop Time Status Last Admin Dose Admin Atorvastatin Calcium 20 mg HS PO 05/08/24 22:00 05/08/24 22:30 20 MG Ergocalciferol 50,000 unit QWEEKLY PO 05/08/24 13:30 Insulin Glargine 20 units QPM SC 05/08/24 18:00 05/08/24 18:26 20 UNITS Ondansetron HCl 4 mg TIDPRN PRN PO 05/08/24 13:30 05/08/24 16:47 4 MG Pantoprazole Sodium 40 mg DAILY PO 05/09/24 10:00 Lisinopril 40 mg DAILY PO 05/09/24 10:00 Lorazepam 0.5 mg Q6HP PRN PO 05/08/24 13:30 Al Hydrox/Mg Hydrox/Simethicone 30 ml Q6HP PRN PO 05/08/24 13:30 05/09/24 09:10 30 ML Docusate Sodium 100 mg BIDPRN PRN PO 05/08/24 13:30 Acetaminophen 650 mg Q6HP PRN PO 05/08/24 13:30 Temazepam 15 mg QHSP PRN PO 05/08/24 13:30 Acetaminophen/ Hydrocodone Bitart 1 tab Q4HP PRN PO 05/08/24 13:30 Diagnostic Test (Pha) 1 strip IQ4HR 05/08/24 20:00 05/09/24 08:00 1 STRIP Insulin Human Regular IQ4HR SC 05/08/24 20:00 05/09/24 08:41 2 UNITS Dextrose 50 ml UD PRN IV 05/08/24 18:00 Ondansetron HCl 4 mg Q4HP PRN IV 05/08/24 19:45 05/09/24 09:11 4 MG Morphine Sulfate 4 mg Q4HPRN PRN IV 05/09/24 00:30 05/09/24 09:12 4 MG Hydralazine HCl 50 mg Q8HR PO 05/09/24 06:00 05/09/24 06:27 50 MG Metoprolol Succinate 50 mg BID PO 05/09/24 10:00 Clonidine HCl 0.2 mg Q6HP PRN PO 05/09/24 00:25 05/09/24 00:27 0.2 MG Sevelamer HCl 1,600 mg TIDWM PO 05/09/24 12:00 Examination General Appearance: Cooperative. Well developed. Well nourished. NAD Head Exam: Normal inspection Neck Exam: Normal inspection. Non-tender. Normal alignment Pulmonary/Respiratory: Chest non-tender. Clear bilateral breath sounds, no crackles, no wheezing. Cardiovascular/Chest: Tachycardia. Regular rhythm. No murmurs. No JVD. Peripheral Pulses: 2+ Radial (R). 2+ Radial (L). 2+ Pedal (R). 2+ Pedal (L) Abdominal Exam: Normal bowel sounds. Soft. normal abdomen, no visible veins, generalized lower abdominal tenderness, left flank pain/tenderness to palpation. No hepatospenomegaly. No masses Genitourinary: Bilateral costovertebral angle tenderness noted, however, patient denies any urinary symptoms Ankle Exam: Negative ankle edema Lower extremities: Negative lower extremity edema Neuro/Mental Status: A&O x4. Coherent. Thoughts/Psych: Normal thought pattern. Appropriate mood and affect. Good judgement and insight Skin Exam: Normal inspection. Normal color. Warm. Dry laboratory and microbiology Test 05/09/24 09:27 Range/Units Serum Glucose Pending Labs and/or images reviewed: Labs reviewed by me, Image(s) reviewed by me Problem List/Assessment/Plan Problem List/Assessment/Plan CHARANJIT likely hemodynamically mediated/VMN on CKD Hyperkalemia due to above Intractable nausea and vomiting, now improving Likely nephrotic range proteinuria due to diabetic nephropathy Dehydration - IV NS 500 mL bolus - IV NS at 250 cc/hour, 4 bags given - nephrology on board - sevelamer 1600 mg p.o. t.i.d. - ondansetron p.o. 4 mg as needed, IV ondansetron 4 mg as needed for nausea and vomiting Anemia, likely of chronic disease - ordered iron panel, ferritin - we will continue to monitor Hypertension - metoprolol succinate 50 mg p.o. b.i.d., lisinopril 40 mg p.o. daily - hydralazine 50 mg p.o. t.i.d. - clonidine 0.2 mg p.o. q.6 as needed for SBP greater than 160 Type 1 diabetes Possible HHS - initially started on an insulin drip - insulin Lantus 20 units - mild sliding scale insulin - serum osmolality 309 Vitamin-D deficiency - repleted DVT prophylaxis: Levonox 40mg Goals of care: Full code, discussed for >16 minutes on 05/09/24 Plan discussed with patient Plan discussed with Dr. De La O Plan discussed with: Patient, Other (RN) My Orders My Orders Orders - ADRIANA LAU Procedure Category Date Status Time Drug Screen LAB 05/09/24 Logged 09:09 ADRIANA LAU May 09, 2024 09:48
[2024-05-09] MEDS: PANTOPRAZOLE 40 MG TAB PO SCH (09:59)
[2024-05-09] MEDS: METOPROLOL SUCCINATE XL 50 MG TAB PO SCH (10:00)
[2024-05-09] MEDS ORDERED: METOPROLOL SUCCINATE XL 50 MG TAB PO SCH (10:00)
[2024-05-09] MEDS ORDERED: hydrALAZINE HCL 25 MG TAB PO SCH (10:00)
[2024-05-09] MEDS ORDERED: INSULIN LANTUS (GLARGINE) 1 /0.01ml (100units/ml) SC SCH (10:00)
[2024-05-09] MEDS: LISINOPRIL 20 MG TAB PO SCH (10:00)
[2024-05-09 10:06] LABS: Basophils # (auto) 0.1 10 ^3/uL (0-0.2); Eosinophils # (auto) 0.1 10 ^3/uL (0-0.8); Hematocrit 22.9 % (41.0-53.0); Lymphocytes # (auto) 2.2 10 ^3/uL (0.4-5.4); Monocytes # (auto) 0.5 10 ^3/uL (0-1.3); Monocytes % (auto) 4.8 % (0.0-12.0); Red Blood Cells 2.54 10^6/uL (4.5-5.90)
[2024-05-09 10:08] LABS: Basophils % (auto) 0.6 % (0.0-2.0); Eosinophils % (auto) 0.9 % (0.0-7.0); Hemoglobin 7.8 g/dL (13.5-17.5); Lymphocytes % (auto) 21.7 % (10.0-50.0); Mean Corpuscular Hemoglobin 30.7 pg (28.0-32.0); Mean Corpuscular Hgb Conc. 34.1 g/dL (32.0-36.0); Neutrophils # (auto) 7.4 10 ^3/uL (1.6-8.6); Platelet Count (auto) 298 10^3/uL (140-450); Red Cell Distribution Width 13.3 % (11.8-14.3); White Blood Cell 10.3 10^3/uL (4.4-10.8)
[2024-05-09 10:17] LABS: % Iron Saturation 19.5 % (20-55)
[2024-05-09 10:23] LABS: Alanine Aminotransferase 16 U/L (7-40); Albumin 3.6 g/dL (3.2-4.8); Alkaline Phosphatase 117 U/L (46-116); Anion Gap 11 (5-15); Aspartate Aminotransferase 10 U/L (13-40); BUN/Creatinine Ratio 7.2 (10.0-20.0); Bilirubin, Total 0.2 mg/dL (0.2-1.0); Blood Urea Nitrogen 47 mg/dL (9-23); Calcium 8.4 mg/dL (8.7-10.4); Carbon Dioxide 19 mmol/L (20-31); Chloride 109 mmol/L (98-107); Glucose 145 mg/dL (74-106); Phosphorus 6.8 mg/dL (2.4-5.1); Sodium 139 mmol/L (136-145); Total Protein 6.6 g/dL (5.7-8.2)
--- NOTE | 2024-05-09 10:33 | DVH ---
CHEST RADIOGRAPH Indication:sob Technique: Single frontal view of the chest was obtained COMPARISON: None FINDINGS: Lines and Tubes: None Lungs: Diffuse increased interstitial prominence. Pleura: No effusion. No pneumothorax. Cardiomediastinal contours: Unremarkable Bones: Unremarkable IMPRESSION: Pulmonary vascular congestion versus viral pneumonia.
[2024-05-09 11:01] LABS: Lipase 30 U/L (12-53)
[2024-05-09] MEDS: SEVELAMER 800 MG TAB PO SCH ×2 (12:21→17:47)
--- NOTE | 2024-05-09 12:35 | DVHINCON2 ---
Date of service: May 09, [address] Gulilen Reason for Consultation Elevated BUN and creatinine History of Present Illness This is a 29-year-old male with history of Chronic kidney disease stage 4 secondary to diabetic nephropathy presenting to the emergency room complaining of nausea, vomiting and abdominal pain. Last seen by me in clinic about four months ago at which time his GFR was 16 mL/min. He was referred for PD catheter placement evaluation [as PD was his modality of choice] which unfortunately patient could not go far. He has been following at [facility] for preemptive kidney transplant. Initial evaluation in the emergency room showed worsening of his GFR to 11 mL/min. Nephrology consulted for the same. Past Medical History Chronic kidney disease stage 4 Type 2 diabetes with nephropathy Hypertension Anemia in Chronic kidney disease Proteinuria Past Surgical History None Family History: Patient reports no known family medical history. Family History Denies any history of Chronic kidney disease Social History No active history of smoking, alcohol or drug abuse Allergies: Coded Allergies: Penicillins (Verified Allergy, Severe, 12/27/23) Home Meds Active Scripts Ondansetron Odt 4MG Tab (ZOFRAN PO) 4 Mg Tb, 4 MG PO TIDPRN PRN for 3 Days, #9 TAB ODT TAB-DISSOLVE IN MOUTH, THEN SWALLOW Prov:HEENA BLACKWOOD MD 04/22/24 Reported Medications Pantoprazole Sodium Sesquihydr (Pantoprazole Sodium) 40 Mg Tab, 1 TAB PO DAILY 12/27/23 Hydralazine HCl (Hydralazine HCl) 25 Mg Tab, 1 TAB PO TID 12/27/23 Ergocalciferol (Vitamin D) 50,000 Unit Cap, 1 CAP PO QWEEKLY 12/27/23 Metoprolol Succinate (Metoprolol Succinate Er) 100 Mg Tab, 1 TAB PO DAILY 12/27/23 Carvedilol (Carvedilol) 6.25 Mg Tab, 1 TAB PO BID 12/27/23 Atorvastatin Calcium (ATORVASTATIN CALCIUM) 20 Mg Tab, 1 TAB PO DAILY 12/27/23 Furosemide (Furosemide) 20 Mg Tab, 1 TAB PO BID 12/27/23 Lisinopril (Lisinopril) 40 Mg Tab, 1 TAB PO DAILY 06/06/23 Insulin Lispro (Insulin Lispro) 100 Unit/Ml Inj, SC 12/14/23 Insulin Glargine (Lantus) 100 Unit/Ml Inj, SC 06/06/23 Hydralazine Hcl (Hydralazine Hcl) 50 Mg Tab, 1 TAB PO QID 06/06/23 Continuous Blood Glucose Syste (Dexcom G6 Transmitter) 1 Mis Mis, UD 06/06/23 Continuous Blood Glucose Syste (Dexcom G6 Sensor) 1 Mis Mis, UD 06/06/23 Current Medications Current Medications Medications (Trade) Dose Ordered Sig/Kiran Route PRN Reason Start Time Stop Time Status Last Admin Sodium Chloride 1,000 ml @ 250 mls/hr Q4H IV 05/08/24 13:45 05/08/24 15:44 DC 05/08/24 13:45 Sodium Chloride 1,000 ml @ 150 mls/hr Q6H40M IV 05/08/24 15:45 05/08/24 19:09 DC 05/08/24 14:36 Insulin Glargine (Lantus) 15 units DAILY SC 05/09/24 10:00 05/08/24 16:57 DC Atorvastatin Calcium (Lipitor) 20 mg HS PO 05/08/24 22:00 05/08/24 22:30 Ergocalciferol (Vitamin D 50,000 Unit) 50,000 unit QWEEKLY PO 05/08/24 13:30 Insulin Glargine (Lantus) 20 units QPM SC 05/08/24 18:00 05/08/24 18:26 Insulin Human Lispro (HumaLOG) 15 units ACHS SC 05/08/24 17:00 05/08/24 18:33 DC Ondansetron HCl (Zofran Po) 4 mg TIDPRN PRN PO NAUSEA / VOMITING 05/08/24 13:30 05/08/24 16:47 Pantoprazole Sodium (Protonix Tablet) 40 mg DAILY PO 05/09/24 10:00 05/09/24 09:59 Carvedilol (Coreg Tablet) 6.25 mg BID PO 05/08/24 22:00 05/08/24 16:56 DC Hydralazine HCl (Apresoline Tablet) 100 mg DAILY PO 05/09/24 10:00 05/09/24 00:21 DC Lisinopril (Zestril Tablet) 40 mg DAILY PO 05/09/24 10:00 05/09/24 10:00 Metoprolol Succinate (Toprol Xl) 100 mg DAILY PO 05/09/24 10:00 05/09/24 00:21 DC Sodium Chloride 1,000 ml @ 250 mls/hr Q4H IV 05/08/24 13:30 05/08/24 18:06 DC 05/08/24 16:54 Lorazepam (Ativan Tablet) 0.5 mg Q6HP PRN PO ANXIETY 05/08/24 13:30 Al Hydrox/Mg Hydrox/Simethicone (Maalox Plus) 30 ml Q6HP PRN PO FOR STOMACH DISTRESS 05/08/24 13:30 05/09/24 09:10 Docusate Sodium (Colace Capsule) 100 mg BIDPRN PRN PO FOR CONSTIPATION 05/08/24 13:30 Acetaminophen (Tylenol Tablet) 650 mg Q6HP PRN PO PAIN SCALE 1-3 OR TEMP>100.4 05/08/24 13:30 Temazepam (Restoril) 15 mg QHSP PRN PO FOR INSOMNIA 05/08/24 13:30 Acetaminophen/ Hydrocodone Bitart ([place] 5/325MG Tab) 1 tab Q4HP PRN PO MODERATE PAIN (4-6 PAIN SCALE) 05/08/24 13:30 Ondansetron HCl (Zofran) 4 mg Q4HP PRN IV NAUSEA / VOMITING 05/08/24 13:30 05/08/24 19:44 DC Morphine Sulfate 2 mg Q4HPRN PRN IV SEVERE PAIN (7-10 PAIN SCALE) 05/08/24 13:30 05/09/24 00:21 DC 05/08/24 22:31 Diagnostic Test (Pha) (Accu-Chek Comfort Curve T) 1 strip IQ4HR 05/08/24 20:00 05/09/24 12:11 Insulin Human Regular (InsuLIN R) IQ4HR SC 05/08/24 20:00 05/09/24 08:41 Dextrose 50 ml UD PRN IV Blood Sugar LESS THAN 60 05/08/24 18:00 Ondansetron HCl (Zofran) 4 mg Q4HP PRN IV NAUSEA / VOMITING 05/08/24 19:45 05/09/24 09:11 Morphine Sulfate 4 mg Q4HPRN PRN IV SEVERE PAIN (7-10 PAIN SCALE) 05/09/24 00:30 05/09/24 09:12 Hydralazine HCl (Apresoline Tablet) 50 mg Q8HR PO 05/09/24 06:00 05/09/24 06:27 Metoprolol Succinate (Toprol Xl) 50 mg BID PO 05/09/24 10:00 05/09/24 10:00 Clonidine HCl (Catapres Tablet) 0.2 mg Q6HP PRN PO SBP>160 05/09/24 00:25 05/09/24 12:21 Sevelamer HCl (Renagel) 1,600 mg TIDWM PO 05/09/24 12:00 05/09/24 12:21 Review of Systems Twelve point review of systems negative except as stated in the HPI Vital Signs Vital Signs Date Time Temp Pulse Resp B/P (MAP) Pulse Ox O2 Delivery O2 Flow Rate FiO2 05/09/24 12:21 164/106 05/09/24 10:00 92 16 98 05/09/24 07:30 Room Air* 0 21 05/08/24 19:30 98.1 98.1 Physical Exam Alert awake oriented x3 HEENT: Normocephalic, no JVD Lungs: Bilateral good air entry CVS: S1, S2 tachycardic Abdomen: Soft, no tenderness, guarding or rebound REPAIRER ART OBJECTS: No focal deficits Extremities: No edema Labs/Diagnostic Data Labs Test 05/09/24 12:00 05/09/24 09:27 05/09/24 08:35 05/08/24 11:15 Range/Units White Blood Count 10.3 4.4-10.8 10^3/uL Red Blood Count 2.54 L 4.5-5.90 10^6/uL Hemoglobin 7.8 L 13.5-17.5 g/dL Hematocrit 22.9 L 41.0-53.0 % Mean Corpuscular Volume 90.0 80.0-100.0 fL Mean Corpuscular Hemoglobin 30.7 28.0-32.0 pg Mean Corpuscular Hemoglobin Concent 34.1 32.0-36.0 g/dL Red Cell Distribution Width 13.3 11.8-14.3 % Platelet Count 298 140-450 10^3/uL Mean Platelet Volume 8.6 6.9-10.8 fL Neutrophils (%) (Auto) 72.0 37.0-80.0 % Lymphocytes (%) (Auto) 21.7 10.0-50.0 % Monocytes (%) (Auto) 4.8 0.0-12.0 % Eosinophils (%) (Auto) 0.9 0.0-7.0 % Basophils (%) (Auto) 0.6 0.0-2.0 % Neutrophils # (Auto) 7.4 1.6-8.6 10 ^3/uL Lymphocytes # (Auto) 2.2 0.4-5.4 10 ^3/uL Monocytes # (Auto) 0.5 0-1.3 10 ^3/uL Eosinophils # (Auto) 0.1 0-0.8 10 ^3/uL Basophils # (Auto) 0.1 0-0.2 10 ^3/uL Nucleated Red Blood Cells 0.0 % Sodium Level 139 136-145 mmol/L Potassium Level 5.0 3.5-5.1 mmol/L Chloride Level 109 H 98-107 mmol/L Carbon Dioxide Level 19 L 20-31 mmol/L Anion Gap 11 5-15 Blood Urea Nitrogen 47 H 9-23 mg/dL Creatinine 6.57 H 0.700-1.30 mg/dL Glomerular Filtration Rate Calc 11 >90 mL/min BUN/Creatinine Ratio 7.2 L 10.0-20.0 Serum Glucose 145 H 74-106 mg/dL Hemoglobin A1c 7.3 H <5.7 % A1C Serum Osmolality 304 H 278-298 mOsm/kg Calcium Level 8.4 L 8.7-10.4 mg/dL Phosphorus Level 6.8 H 2.4-5.1 mg/dL Iron Level 60 L 65-175 ug/dL Total Iron Binding Capacity 307 250-425 ug/dL Percent Iron Saturation 19.5 L 20-55 % Ferritin 61.2 22-322 ng/mL Total Bilirubin 0.2 0.2-1.0 mg/dL Aspartate Amino Transferase (AST) 10 L 13-40 U/L Alanine Aminotransferase (ALT) 16 7-40 U/L Alkaline Phosphatase 117 H 46-116 U/L Total Protein 6.6 5.7-8.2 g/dL Albumin 3.6 3.2-4.8 g/dL Lipase 30 12-53 U/L POC Glucose 143 H 70-106 mg/dl Urine Color Colorless Yellow Urine Clarity Clear Clear Urine pH 6.5 5.0-9.0 Urine Specific [place] 1.011 1.001-1.035 Urine Protein 3+ H Negative Urine Ketones Negative Negative Urine Blood 1+ H Negative /uL Urine Nitrite Negative Negative Urine Bilirubin Negative Negative Urine Urobilinogen Normal Negative mg/dL Urine Leukocyte Esterase Negative Negative /uL Urine RBC 3 0 - 3 /hpf Urine WBC 1 0 - 3 /hpf Urine Squamous Epithelial Cells None seen <5 /hpf Urine Bacteria None seen None Seen /hpf Urine Glucose 2+ H Normal mg/dL Test 05/08/24 10:19 05/08/24 09:55 Range/Units Blood Gas Specimen Type Arterial Blood Gas Sample Site Right radial Blood Gas Patient Temperature 37.0 Arterial Blood Date Drawn [id number] Arterial Blood pH 7.402 7.350-7.450 Arterial Blood Partial Pressure CO2 31.4 L 35.0-48.0 mmHg Arterial Blood Partial Pressure O2 95.3 83.0-108.0 mmHg Arterial Blood HCO3 19.1 L 21.0-28.0 mmol/L Arterial Blood Oxygen Saturation 97.0 94.0-98.0 % Arterial Blood Base Excess -5.0 L -2.0-3.0 mmol/L Arterial Blood Oxyhemoglobin 96.0 94.0-98.0 % Arterial Blood Carboxyhemoglobin 0.3 L 0.5-1.5 % Arterial Blood Methemoglobin 0.7 0.0-1.5 % Matt Test Yes Blood Gas Total Hemoglobin 8.30 L 13.5-17.5 g/dL Blood Gas Modality Room air FiO2 % 21.0 Magnesium Level 1.9 1.6-2.6 mg/dL Beta-Hydroxybutyric Acid 0.245 < 0.4 mmol/L Assessment Acute kidney injury superimposed on Chronic kidney disease stage 4 which is most likely progression of his kidney disease Type 2 diabetes with nephropathy Proteinuria Hypertension Anemia in Chronic kidney disease Hyperphosphatemia Secondary hyperparathyroidism of renal origin vitamin D deficiency Plan/Recommendation I discussed with the patient that his symptoms are most likely secondary to uremia. Patient is hesitant to be initiated on renal replacement therapy at this time. He wants to think it over and will have a discussion again tomorrow. Plan: Discontinue lisinopril in light of hyperkalemia and decreased GFR Increase hydralazine to 100 mg p.o. q.8 hours Continue with metoprolol 50 mg p.o. b.i.d. Decrease sevelamer to 800 mg p.o. t.i.d. with meals Calcium acetate 667 mg p.o. t.i.d. with meals Lasix 40 mg p.o. b.i.d. Epogen 29546 units subQ x1 today. Plan discussed with: Patient KATIE NAPIER MD May 09, 2024 12:35
[2024-05-09] MEDS: CALCIUM ACETATE 667 MG CAP PO SCH (17:47)
[2024-05-09] MEDS: FUROSEMIDE 40 MG TAB PO SCH (17:48)
[2024-05-09 21:00] VITALS: BP 135/90; PULSE 85; PULSE 98; RESP 18; TEMP 97.7; O2SAT 83; O2SAT 97
[2024-05-09] MEDS: EPOETIN ALFA-EPBX 10,000 UNIT/1ML VIAL SC ONE (21:24)
[2024-05-09 21:55] VITALS: PULSE 98; RESP 18; O2SAT 97
[2024-05-09] MEDS ORDERED: INSLISPI SC (22:29)
[2024-05-09] MEDS: LORazepam 0.5 MG TAB PO PRN (22:53)
[2024-05-09] MEDS: METOPROLOL TARTRATE 50 MG TAB PO SCH (22:53)
[2024-05-10] VITALS (11 sets, daily range): BP systolic 114–173; BP diastolic 72–109; PULSE 85–97; RESP 14–20; TEMP 97.4–98.9; O2SAT 90–97
[2024-05-10 06:31] LABS: Basophils # (auto) 0 10 ^3/uL (0-0.2); Basophils % (auto) 0.6 % (0.0-2.0); Eosinophils # (auto) 0.1 10 ^3/uL (0-0.8); Monocytes # (auto) 0.7 10 ^3/uL (0-1.3); Nucleated Red Blood Cells % 0.1 %
[2024-05-10 06:36] LABS: Eosinophils % (auto) 1.7 % (0.0-7.0); Hematocrit 18.8 % (41.0-53.0); Mean Corpuscular Hemoglobin 30.6 pg (28.0-32.0); Mean Corpuscular Hgb Conc. 33.9 g/dL (32.0-36.0); Mean Corpuscular Volume 90.2 fL (80.0-100.0); Neutrophils % (auto) 63.7 % (37.0-80.0); Platelet Count (auto) 225 10^3/uL (140-450); Red Blood Cells 2.08 10^6/uL (4.5-5.90); Red Cell Distribution Width 13.2 % (11.8-14.3); White Blood Cell 7.9 10^3/uL (4.4-10.8)
[2024-05-10 06:40] LABS: Hemoglobin 6.4 g/dL (13.5-17.5)
[2024-05-10 06:43] LABS: Anion Gap 8 (5-15); Carbon Dioxide 23 mmol/L (20-31); Chloride 107 mmol/L (98-107); Potassium 4.6 mmol/L (3.5-5.1); Sodium 138 mmol/L (136-145)
[2024-05-10 06:50] LABS: BUN/Creatinine Ratio 5.6 (10.0-20.0); Blood Urea Nitrogen 39 mg/dL (9-23); Glucose 86 mg/dL (74-106)
--- NOTE | 2024-05-10 13:11 | DVHPNRES ---
Progress Note Date Seen: May 10, 2024 Resident Creating Document: АННА MILLER RESIDENT Has the PT tested + for MRSA If YES, has PT been informed?: Yes Medical Necessity Reason Pt with a Central, PICC or Fol: No Subjective Patient reports: No new complaints, Feels better Changes from previous H/P or p: No Changes Review of Systems: HEENT:Normal, CVS:Normal, RESPIRATORY:Normal, GI:Normal, :Normal, MSK:Normal, NEURO:Normal Objective vital signs Vital Sign Date Time Temp Pulse Resp B/P (MAP) Pulse Ox O2 Delivery O2 Flow Rate FiO2 05/10/24 10:28 90 18 150/90 05/10/24 09:00 98.2 97 98.2 05/10/24 08:00 Room Air* 0 21 Total Intake and Output 05/09/24 05/09/24 05/10/24 15:00 23:00 07:00 Intake Total 300 ml Balance 300 ml medications Current Medications Medications Dose Ordered Sig/Kiran Route Start Time Stop Time Status Last Admin Dose Admin Atorvastatin Calcium 20 mg HS PO 05/08/24 22:00 05/09/24 22:53 20 MG Ergocalciferol 50,000 unit QWEEKLY PO 05/08/24 13:30 Insulin Glargine 20 units QPM SC 05/08/24 18:00 05/08/24 18:26 20 UNITS Ondansetron HCl 4 mg TIDPRN PRN PO 05/08/24 13:30 05/10/24 10:28 4 MG Pantoprazole Sodium 40 mg DAILY PO 05/09/24 10:00 05/10/24 08:26 40 MG Lorazepam 0.5 mg Q6HP PRN PO 05/08/24 13:30 05/10/24 11:40 0.5 MG Al Hydrox/Mg Hydrox/Simethicone 30 ml Q6HP PRN PO 05/08/24 13:30 05/09/24 19:09 30 ML Docusate Sodium 100 mg BIDPRN PRN PO 05/08/24 13:30 Acetaminophen 650 mg Q6HP PRN PO 05/08/24 13:30 Temazepam 15 mg QHSP PRN PO 05/08/24 13:30 Acetaminophen/ Hydrocodone Bitart 1 tab Q4HP PRN PO 05/08/24 13:30 Diagnostic Test (Pha) 1 strip IQ4HR 05/08/24 20:00 05/10/24 11:22 1 STRIP Insulin Human Regular IQ4HR SC 05/08/24 20:00 05/09/24 08:41 2 UNITS Dextrose 50 ml UD PRN IV 05/08/24 18:00 Ondansetron HCl 4 mg Q4HP PRN IV 05/08/24 19:45 05/10/24 11:47 4 MG Morphine Sulfate 4 mg Q4HPRN PRN IV 05/09/24 00:30 05/10/24 10:28 4 MG Clonidine HCl 0.2 mg Q6HP PRN PO 05/09/24 00:25 05/09/24 12:21 0.2 MG Hydralazine HCl 100 mg Q8HR PO 05/09/24 14:00 05/09/24 22:52 100 MG Sevelamer HCl 800 mg TIDWM PO 05/09/24 18:00 05/10/24 11:31 800 MG Metoprolol Tartrate 50 mg BID PO 05/09/24 22:00 05/10/24 10:27 50 MG Calcium Acetate 667 mg TIDWMEALS PO 05/09/24 18:00 05/10/24 11:31 667 MG Furosemide 40 mg BIDD PO 05/09/24 18:00 05/10/24 06:06 40 MG Examination: GENERAL:Normal, HEENT:Normal, NECK:Normal, LUNGS:Normal, CVS:Normal, ABDOMEN:Normal, MSK:Normal, SKIN:Normal, NEURO:Normal, :Normal laboratory and microbiology Laboratory Tests 05/10/24 06:00 Test 05/10/24 06:00 Range/Units Serum Glucose 86 74-106 mg/dL Microbiology Date/Time Source Procedure Growth Status 05/09/24 12:00 Blood Blood Culture - Preliminary NO GROWTH AFTER 24 HOURS OF INCUBATION. Resulted Labs and/or images reviewed: Labs reviewed by me, Image(s) reviewed by me Problem List/Assessment/Plan Problem List/Assessment/Plan Hospital Course: Mr Mayank Watters, a 29-year-old male with a history of diabetes, stage 5 chronic kidney disease, and hypertension presented with abdominal pain, nausea, and vomiting for the past three days, with 4-5 episodes of vomiting daily, but no blood in the vomitus. His last vomiting episode was on 05/08/2024. He reported severe, generalized abdominal pain (8-10/10) but currently denies any pain. The patient, who has had similar symptoms leading to hospitalization two weeks ago, is a poor historian and unsure of his home medications, though he takes hydralazine. He lives with his fiance, is unemployed, occasionally uses marijuana, and denies tobacco or alcohol use. He is allergic to penicillin. On examination, he was somnolent but alert and oriented. Had a prolonged discussion with the patient and family at bedside. # acute renal failure, likely due to progressed from CKD due to type 1 diabetes mellitus , nephrology on board patient agreed on peritoneal dialysis. Appreciate Nephrology input. Hepatitis panel pending. # diabetic nephropathy, Likely nephrotic range proteinuria due to diabetic nephropathy ongoing evaluation at [facility] for possible kidney transplant. # CHARANJIT likely hemodynamically mediated/VMN on CKD # Hyperkalemia due to above, resolving # Intractable nausea and vomiting, now improving, patient able to tolerate diet # Anemia, likely of chronic disease # Acute on chronic anemia, 6.7 HbA1c, patient agreed on PRBC transfusion via IV line, transfusion threshold 7. # Hypertension: Added amlodipine 10 with target blood pressure of 130/80 or below # Type 1 diabetes has a BG sensor , status post insulin drip, Lantus SSI as well as on CC diet with renal restrictions # Vitamin-D deficiency : Continue supplements # DVT prophylaxis: Levonox 40mg # PPI prophylaxis with pantoprazole Barriers to discharge: Ongoing treatment. Need to start peritoneal dialysis. Plan discussed with Dr. De La O Code status : Full code, complex decision-making discussed for 37 minutes. Plan discussed with: Patient, Other (Mother, primary team, RN) My Orders My Orders Orders - АННА MILLER Procedure Category Date Status Time Communication Order ORDERS 05/10/24 Transmitted 09:20 АННА MILLER May 10, 2024 13:11
--- NOTE | 2024-05-10 13:38 | DVHPN2 ---
Progress Note - Dictate Date Seen: May 10, 2024 Medical Necessity Reason Pt with a Central, PICC or Fol: No Subjective Patient seen and examined at bedside. Denies any complaints. Caregiver at bedside. Patient has agreed for dialysis. vital signs Vital Sign Date Time Temp Pulse Resp B/P (MAP) Pulse Ox O2 Delivery O2 Flow Rate FiO2 05/10/24 11:30 89 146/92 05/10/24 11:00 14 05/10/24 09:00 98.2 97 98.2 05/10/24 08:00 Room Air* 0 21 Total Intake and Output 05/09/24 05/09/24 05/10/24 15:00 23:00 07:00 Intake Total 300 ml Balance 300 ml medications Current Medications Medications Dose Ordered Sig/Kiran Route Start Time Stop Time Status Last Admin Dose Admin Atorvastatin Calcium 20 mg HS PO 05/08/24 22:00 05/09/24 22:53 20 MG Ergocalciferol 50,000 unit QWEEKLY PO 05/08/24 13:30 Insulin Glargine 20 units QPM SC 05/08/24 18:00 05/08/24 18:26 20 UNITS Ondansetron HCl 4 mg TIDPRN PRN PO 05/08/24 13:30 05/10/24 10:28 4 MG Pantoprazole Sodium 40 mg DAILY PO 05/09/24 10:00 05/10/24 08:26 40 MG Lorazepam 0.5 mg Q6HP PRN PO 05/08/24 13:30 05/10/24 11:40 0.5 MG Al Hydrox/Mg Hydrox/Simethicone 30 ml Q6HP PRN PO 05/08/24 13:30 05/09/24 19:09 30 ML Docusate Sodium 100 mg BIDPRN PRN PO 05/08/24 13:30 Acetaminophen 650 mg Q6HP PRN PO 05/08/24 13:30 Temazepam 15 mg QHSP PRN PO 05/08/24 13:30 Acetaminophen/ Hydrocodone Bitart 1 tab Q4HP PRN PO 05/08/24 13:30 Diagnostic Test (Pha) 1 strip IQ4HR 05/08/24 20:00 05/10/24 11:22 1 STRIP Insulin Human Regular IQ4HR SC 05/08/24 20:00 05/09/24 08:41 2 UNITS Dextrose 50 ml UD PRN IV 05/08/24 18:00 Ondansetron HCl 4 mg Q4HP PRN IV 05/08/24 19:45 05/10/24 11:47 4 MG Morphine Sulfate 4 mg Q4HPRN PRN IV 05/09/24 00:30 05/10/24 10:28 4 MG Clonidine HCl 0.2 mg Q6HP PRN PO 05/09/24 00:25 05/09/24 12:21 0.2 MG Hydralazine HCl 100 mg Q8HR PO 05/09/24 14:00 05/09/24 22:52 100 MG Sevelamer HCl 800 mg TIDWM PO 05/09/24 18:00 05/10/24 11:31 800 MG Metoprolol Tartrate 50 mg BID PO 05/09/24 22:00 05/10/24 10:27 50 MG Calcium Acetate 667 mg TIDWMEALS PO 05/09/24 18:00 05/10/24 11:31 667 MG Furosemide 40 mg BIDD PO 05/09/24 18:00 05/10/24 06:06 40 MG objective Awake alert oriented x3 HEENT: Normocephalic, no JVD Lungs: Bilateral good air entry CVS: S1, S2 regular rate rhythm Abdomen: Soft, bowel sounds present LABEL PRESS OPERATOR: No focal deficits laboratory and microbiology Laboratory Tests 05/10/24 06:00 Test 05/10/24 06:00 Range/Units Serum Glucose 86 74-106 mg/dL Problem List Chronic kidney disease 5 secondary to diabetic nephropathy. Progression to ESRD Type 1 diabetes with nephropathy Proteinuria Hypertension Anemia in Chronic kidney disease Hyperphosphatemia Secondary hyperparathyroidism of renal origin vitamin D deficiency Assessment/Plan Patient has agreed to initiate renal replacement therapy. His preferred modality is peritoneal dialysis. We will consult Dr. Main for placement of PD catheter. He is aware of the consult and we will see the patient tomorrow. Transfusion of 1 unit of PRBC today. Blood pressure control. Hepatitis panel. Case management for outpatient dialysis placement in [facility]. Plan discussed with: Patient KATIE NAPIER MD May 10, 2024 13:38
[2024-05-10 14:12] LABS: Amphetamine Screen, Urine Neg (NEGATIVE); Barbiturate Scree,Urine Neg (NEGATIVE); Benzodiazephine Screen, Urine Neg (NEGATIVE); Cannabinoid Screen, Urine Neg (NEGATIVE); Cocaine Screen, Urine Neg (NEGATIVE); Opiate Scree,Urine Pos (NEGATIVE); Phencyclidine Screen, Urine Neg (NEGATIVE)
[2024-05-10] MEDS: amLODIPine BESYLATE 5 MG TAB PO ONE (18:49)
[2024-05-11] VITALS (9 sets, daily range): BP systolic 134–168; BP diastolic 87–103; PULSE 81–98; RESP 16–21; TEMP 98.2–99; O2SAT 94–97
[2024-05-11] MEDS ORDERED: ONDANSETRON ODT 4 MG TAB PO PRN ×2 (07:15→14:45)
[2024-05-11] MEDS: amLODIPine BESYLATE 5 MG TAB PO SCH (08:36)
[2024-05-11] MEDS: ONDANSETRON HCL 4 MG/2 ML VIAL IV STA (08:46)
[2024-05-11 09:08] LABS: Hepatitis B Core Total AB Negative (Negative)
[2024-05-11 09:28] LABS: Basophils # (auto) 0.1 10 ^3/uL (0-0.2); Basophils % (auto) 0.8 % (0.0-2.0); Eosinophils # (auto) 0.1 10 ^3/uL (0-0.8); Eosinophils % (auto) 0.6 % (0.0-7.0); Hematocrit 27.5 % (41.0-53.0); Hemoglobin 9.3 g/dL (13.5-17.5); Lymphocytes # (auto) 1.3 10 ^3/uL (0.4-5.4); Mean Corpuscular Hemoglobin 30.1 pg (28.0-32.0); Mean Corpuscular Volume 88.6 fL (80.0-100.0); Monocytes # (auto) 0.6 10 ^3/uL (0-1.3); Monocytes % (auto) 6.4 % (0.0-12.0); Neutrophils # (auto) 7.5 10 ^3/uL (1.6-8.6); Neutrophils % (auto) 78.2 % (37.0-80.0); Platelet Count (auto) 257 10^3/uL (140-450); Red Cell Distribution Width 13.5 % (11.8-14.3); White Blood Cell 9.6 10^3/uL (4.4-10.8)
[2024-05-11 09:30] LABS: Hepatitis A Total Antibody Negative (Negative); Hepatitis B Surface Antibody Negative (Negative); Hepatitis B Surface Antigen Negative (Negative); Hepatitis C Antibody Negative (Negative)
[2024-05-11 09:46] LABS: Alanine Aminotransferase 11 U/L (7-40); Albumin 3.6 g/dL (3.2-4.8); Alkaline Phosphatase 122 U/L (46-116); Anion Gap 11 (5-15); Aspartate Aminotransferase < 8 U/L (13-40); BUN/Creatinine Ratio 5.2 (10.0-20.0); Blood Urea Nitrogen 37 mg/dL (9-23); Calcium 8.5 mg/dL (8.7-10.4); Carbon Dioxide 21 mmol/L (20-31); Chloride 104 mmol/L (98-107); Potassium 4.5 mmol/L (3.5-5.1); Sodium 136 mmol/L (136-145)
[2024-05-11 09:47] LABS: Bilirubin, Total 0.3 mg/dL (0.2-1.0); Total Protein 6.5 g/dL (5.7-8.2)
[2024-05-11 09:58] LABS: Glucose 217 mg/dL (74-106)
--- NOTE | 2024-05-11 13:32 | DVHPN2 ---
Progress Note - Dictate Date Seen: May 11, 2024 Has the PT tested + for MRSA If YES, has PT been informed?: Yes Medical Necessity Reason Pt with a Central, PICC or Fol: No Subjective Nauseous this morning. vital signs Vital Sign Date Time Temp Pulse Resp B/P (MAP) Pulse Ox O2 Delivery O2 Flow Rate FiO2 05/11/24 11:48 94 21 147/87 05/11/24 09:00 98.2 94 98.2 05/11/24 08:00 Room Air* 0 21 Total Intake and Output 05/10/24 05/10/24 05/11/24 15:00 23:00 07:00 Intake Total 400 ml 150 ml Output Total 500 ml 500 ml Balance -100 ml -350 ml medications Current Medications Medications Dose Ordered Sig/Kiran Route Start Time Stop Time Status Last Admin Dose Admin Atorvastatin Calcium 20 mg HS PO 05/08/24 22:00 05/10/24 19:44 20 MG Ergocalciferol 50,000 unit QWEEKLY PO 05/08/24 13:30 Insulin Glargine 20 units QPM SC 05/08/24 18:00 05/10/24 17:39 20 UNITS Pantoprazole Sodium 40 mg DAILY PO 05/09/24 10:00 05/11/24 08:26 40 MG Lorazepam 0.5 mg Q6HP PRN PO 05/08/24 13:30 05/10/24 11:40 0.5 MG Al Hydrox/Mg Hydrox/Simethicone 30 ml Q6HP PRN PO 05/08/24 13:30 05/11/24 00:50 30 ML Docusate Sodium 100 mg BIDPRN PRN PO 05/08/24 13:30 Acetaminophen 650 mg Q6HP PRN PO 05/08/24 13:30 Temazepam 15 mg QHSP PRN PO 05/08/24 13:30 Acetaminophen/ Hydrocodone Bitart 1 tab Q4HP PRN PO 05/08/24 13:30 Diagnostic Test (Pha) 1 strip IQ4HR 05/08/24 20:00 05/11/24 11:56 1 STRIP Insulin Human Regular IQ4HR SC 05/08/24 20:00 05/11/24 08:45 4 UNITS Dextrose 50 ml UD PRN IV 05/08/24 18:00 Ondansetron HCl 4 mg Q4HP PRN IV 05/08/24 19:45 05/11/24 05:01 4 MG Morphine Sulfate 4 mg Q4HPRN PRN IV 05/09/24 00:30 05/11/24 11:48 4 MG Clonidine HCl 0.2 mg Q6HP PRN PO 05/09/24 00:25 05/09/24 12:21 0.2 MG Hydralazine HCl 100 mg Q8HR PO 05/09/24 14:00 05/11/24 05:02 100 MG Sevelamer HCl 800 mg TIDWM PO 05/09/24 18:00 05/11/24 11:46 800 MG Metoprolol Tartrate 50 mg BID PO 05/09/24 22:00 05/11/24 08:26 50 MG Calcium Acetate 667 mg TIDWMEALS PO 05/09/24 18:00 05/11/24 11:46 667 MG Furosemide 40 mg BIDD PO 05/09/24 18:00 05/11/24 05:02 40 MG Amlodipine Besylate 10 mg DAILY PO 05/11/24 10:00 05/11/24 08:36 10 MG Ondansetron HCl 4 mg TIDPRN PRN PO 05/11/24 07:15 Metoclopramide HCl 10 mg Q8HR IV 05/11/24 14:00 UNV objective HEENT: No evidence of JVD, no oral ulcers. Pulmonary: Lungs are clear on auscultation bilaterally Cardiovascular S1-S2, no S3 or S4 Abdomen: Bowel sounds positive, soft no rebound tenderness Skin: No rash Neurological: Alert, oriented, no focal weakness laboratory and microbiology Laboratory Tests 05/11/24 09:19 Test 05/11/24 09:19 Range/Units Serum Glucose 217 #H 74-106 mg/dL Assessment/Plan Assessment: Chronic kidney disease 5 secondary to diabetic nephropathy. 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 Plan Patient has agreed to initiate renal replacement therapy.His preferred modality is peritoneal dialysis. Dr. Main has been consulted for placement of PD catheter. PD catheter placement planned for Saturday Anderson for goal hemoglobin 10-11 g/dl Blood pressure control. Case management for outpatient dialysis placement in [facility]. Plan discussed with: Patient DARREN MARCUM MD 18, 2024 13:32
[2024-05-11] MEDS: METOCLOPRAMIDE HCL 5MG/ml INJ 2ml VIAL IV SCH (14:51)
--- NOTE | 2024-05-11 15:50 | DVHINCON2 ---
DATE OF CONSULTATION: 05/11/2024 REFERRING PHYSICIAN: Dr. Lopez. CONSULTING PHYSICIAN: Luther Main MD. REASON FOR CONSULTATION: Surgical evaluation for placement of peritoneal dialysis catheter, secondary to chronic kidney disease. HISTORY OF PRESENT ILLNESS: The patient is an unfortunate 29-year-old male with history of diabetes, hypertension, and chronic kidney disease, who came to the Emergency Department complaining of nausea and vomiting with progressively worsening renal failure. The patient currently feels well. He has no complaints. He admits to still producing urine. Denies fevers, chills, nausea, vomiting, hemoptysis, hematemesis, bilious emesis, chest pain, shortness of breath, unintentional weight loss, night sweats, melena or hematochezia. PAST MEDICAL HISTORY: Diabetes, hypertension, CKD, anemia, and peripheral neuropathy. PAST SURGICAL HISTORY: Denies. MEDICATIONS: Reviewed, per medication administration record. The patient is currently receiving amlodipine, atorvastatin, clonidine, vitamin D, Lasix, hydralazine, metoprolol, insulin, Benadryl. ALLERGIES: TO "CILLINS." UPON REVIEWING HIS ELECTRONIC HEALTH RECORD, IT IS DOCUMENTED THAT HE HAS AN ALLERGY TO PENICILLIN. SOCIAL HISTORY: Denies smoking cigarettes, alcohol, drug use or vaping. Admits to marijuana use. FAMILY HISTORY: Noncontributory. REVIEW OF SYSTEMS: NEURO: Negative. PSYCH: Negative. ENDOCRINE: Negative. ENT: Negative. CARDIOVASCULAR: Negative. PULMONARY: Negative. GASTROINTESTINAL: Negative. GENITOURINARY: Negative, other than mentioned above. HEME/INFECTIOUS DISEASE: Negative. LYMPHATICS: Negative. MUSCULOSKELETAL: Negative. SKIN: Negative. PHYSICAL EXAMINATION: GENERAL: He is lying comfortably in bed. He is calm, pleasant, and in no distress. VITAL SIGNS: He is afebrile with stable vital signs with exception of hypertension. NEUROLOGIC: Grossly intact, alert, awake, oriented x3. HEAD, EYES, EARS, NOSE, AND THROAT: Normocephalic. Pupils equally round. Extraocular muscles intact. Trachea is midline. HEART: Normal heart rate with significant hypertension. LUNGS: Effortless breathing. Normal oxygen saturation and respiratory rate. ABDOMEN: Soft, nondistended, nontender. EXTREMITIES: No edema or tenderness. LABORATORY DATA: I reviewed his labs, demonstrated anemia with hemoglobin 9.8. Previous hemoglobin of 6.4. Urea 39, creatinine 6.9. ASSESSMENT: Unfortunate 29-year-old male with diabetes and progressive worsening chronic kidney disease. Now requires dialysis. He had a lengthy discussion with his family services coordinator and he has opted for acute peritoneal dialysis. PLANS AND RECOMMENDATIONS: I had a lengthy discussion with the patient and recommended a laparoscopic placement of peritoneal dialysis catheter. The procedure, risks and benefits were explained in a detailed and extensive fashion. He was made aware of potential complications such as bleeding, infection, need for additional procedures, injury to internal organs, blood vessels and/or nerves and catheter malfunction, spontaneous bacterial peritonitis which may not be a complication from the procedure, but from the peritoneal dialysis process and having the catheter itself. He was made aware that he has to be compliant with his peritoneal dialysis care and instruction by his family services coordinator. The patient understands and agrees to proceed. Thank you Dr. Lopez for allowing me to participate in the care of your patient. Arrangements will be made for placement of the catheter on Saturday. MD ALPESH Leggett/CELINA/NEYDA TID: [id number] RECEIPT: [id number]
--- NOTE | 2024-05-11 19:05 | DVHPNRES ---
Progress Note Date Seen: May 11, 2024 Resident Creating Document: ANIYA BRADY RESIDENT Has the PT tested + for MRSA If YES, has PT been informed?: Yes Medical Necessity Reason Pt with a Central, PICC or Fol: No Subjective Review of Systems Mr Mayank Watters, a 29-year-old male with a history of diabetes, stage 5 chronic kidney disease, and hypertension presented with abdominal pain, nausea, and vomiting for the past three days, with 4-5 episodes of vomiting daily, but no blood in the vomitus. His last vomiting episode was on 05/08/2024. He reported severe, generalized abdominal pain (8-10/10) but currently denies any pain. The patient, who has had similar symptoms leading to hospitalization two weeks ago, is a poor historian and unsure of his home medications, though he takes hydralazine. He lives with his fiance, is unemployed, occasionally uses marijuana, and denies tobacco or alcohol use. He is allergic to penicillin. On examination, he was somnolent but alert and oriented. Had a prolonged discussion with the patient and family at bedside. Objective vital signs Vital Sign Date Time Temp Pulse Resp B/P (MAP) Pulse Ox O2 Delivery O2 Flow Rate FiO2 05/11/24 17:56 92 20 134/97 05/11/24 17:00 98.2 97 98.2 05/11/24 08:00 Room Air* 0 21 Total Intake and Output 05/10/24 05/10/24 05/11/24 15:00 23:00 07:00 Intake Total 400 ml 150 ml Output Total 500 ml 500 ml Balance -100 ml -350 ml medications Current Medications Medications Dose Ordered Sig/Kiran Route Start Time Stop Time Status Last Admin Dose Admin Atorvastatin Calcium 20 mg HS PO 05/08/24 22:00 05/10/24 19:44 20 MG Ergocalciferol 50,000 unit QWEEKLY PO 05/08/24 13:30 Insulin Glargine 20 units QPM SC 05/08/24 18:00 05/11/24 17:48 20 UNITS Pantoprazole Sodium 40 mg DAILY PO 05/09/24 10:00 05/11/24 08:26 40 MG Lorazepam 0.5 mg Q6HP PRN PO 05/08/24 13:30 05/10/24 11:40 0.5 MG Al Hydrox/Mg Hydrox/Simethicone 30 ml Q6HP PRN PO 05/08/24 13:30 05/11/24 00:50 30 ML Docusate Sodium 100 mg BIDPRN PRN PO 05/08/24 13:30 Acetaminophen 650 mg Q6HP PRN PO 05/08/24 13:30 Temazepam 15 mg QHSP PRN PO 05/08/24 13:30 Acetaminophen/ Hydrocodone Bitart 1 tab Q4HP PRN PO 05/08/24 13:30 Diagnostic Test (Pha) 1 strip IQ4HR 05/08/24 20:00 05/11/24 17:23 1 STRIP Insulin Human Regular IQ4HR SC 05/08/24 20:00 05/11/24 08:45 4 UNITS Dextrose 50 ml UD PRN IV 05/08/24 18:00 Ondansetron HCl 4 mg Q4HP PRN IV 05/08/24 19:45 05/11/24 05:01 4 MG Morphine Sulfate 4 mg Q4HPRN PRN IV 05/09/24 00:30 05/11/24 17:26 4 MG Clonidine HCl 0.2 mg Q6HP PRN PO 05/09/24 00:25 05/09/24 12:21 0.2 MG Hydralazine HCl 100 mg Q8HR PO 05/09/24 14:00 05/11/24 14:50 100 MG Sevelamer HCl 800 mg TIDWM PO 05/09/24 18:00 05/11/24 17:23 800 MG Metoprolol Tartrate 50 mg BID PO 05/09/24 22:00 05/11/24 08:26 50 MG Calcium Acetate 667 mg TIDWMEALS PO 05/09/24 18:00 05/11/24 17:23 667 MG Furosemide 40 mg BIDD PO 05/09/24 18:00 05/11/24 05:02 40 MG Amlodipine Besylate 10 mg DAILY PO 05/11/24 10:00 05/11/24 08:36 10 MG Metoclopramide HCl 10 mg Q8HR IV 05/11/24 14:00 05/11/24 14:51 10 MG Iron Sucrose 110 ml @ 110 mls/hr DAILY@1200 IV 05/12/24 12:00 05/13/24 12:59 Ondansetron HCl 4 mg TIDPRN PRN PO 05/11/24 14:45 Examination PSYCH: Good Judgment. AOx3. Normal memory, mood, and affect. HEENT -Head: normocephalic atraumatic, no facial trauma, neck is supple NECK: Supple, with no masses. CV: RRR, no m/r/g. LUNGS: respiratory effort normal, speaks in full sentences, no tripod position, no accessory muscle use. Lungs clear to auscultation without rhonchi, wheezes, rales ABD: Soft, ND/NT. No evidence of fluid wave. No pulsatile masses on exam, rebound tenderness, Schuster sign or pain over Mcburney's point. SKIN: Warm, well perfused. No skin rashes or abnormal lesions. MSK: No deformities or signs of scoliosis. Normal gait. EXT: No clubbing, cyanosis, or edema. NEURO: Ambulating with no limitations. Normal muscle strength and tone. No focal deficits. laboratory and microbiology Laboratory Tests 05/11/24 09:19 Test 05/11/24 09:19 Range/Units Serum Glucose 217 #H 74-106 mg/dL Microbiology Date/Time Source Procedure Growth Status 05/09/24 12:00 Blood Blood Culture - Preliminary NO GROWTH AFTER 48 HOURS OF INCUBATION. Resulted Problem List/Assessment/Plan Problem List/Assessment/Plan #acute renal failure, likely due to progressed from CKD due to type 1 diabetes mellitus nephrology on board patient agreed on peritoneal dialysis. Appreciate Nephrology input. Hepatitis panel negative Pending peritoneal dialysis catheter per surgery possible Saturday #diabetic nephropathy #gastroparesis: can explain the nausea and vomiting Likely nephrotic range proteinuria due to diabetic nephropathy ongoing evaluation at [place] for possible kidney transplant. # Hyperkalemia due to above, resolved # Acute on chronic anemia due to chronic disease, 9.3 patient agreed on PRBC transfusion via IV line, transfusion threshold 7. # Hypertension: Added amlodipine 10 with target blood pressure of 130/80 or below # Type 1 diabetes has a BG sensor , insulin sliding scale # Vitamin-D deficiency : Continue supplements # DVT prophylaxis: Levonox 40mg # PPI prophylaxis with pantoprazole Barriers to discharge: Ongoing treatment. Need to start peritoneal dialysis. Plan discussed with Dr. Sim Code status : Full code, complex decision-making discussed for 37 minutes. Plan discussed with: Patient, Other (rn) My Orders My Orders Orders - ANIYA BRADY Procedure Category Date Status Time * Surgical Consult CONS 05/11/24 Verified 07:59 Metoclopramide PHA 05/11/24 In Process Injection (Reglan 14:00 Ondansetron Po PHA 05/11/24 In Process (Zofran Po) 14:45 Date of Service: May 11, 2024 Billing Provider: ANGIE SIM MD Common Visit Codes: [id number] INP/OBS CARE(HIGH) Coding Comment Comment Attending Attestation I saw and evaluated the patient. I reviewed the residents note and agree with findings and plan as documented in the residents note except as documented below. ANIYA BRADY RESIDENT May 11, 2024 19:05 ANGIE SIM MD May 11, 2024 19:15
[2024-05-12] VITALS (8 sets, daily range): BP systolic 109–153; BP diastolic 60–93; PULSE 88–98; RESP 15–19; TEMP 97.9–98.6; O2SAT 95–98
[2024-05-12 06:58] LABS: INR 1.03 (0.9-1.15); Partial Thromboplastin Time 29.2 SEC (24.5-34.5); Prothrombin Time 10.9 sec (9.3-11.8)
[2024-05-12 07:03] LABS: Calcium 8.8 mg/dL (8.7-10.4); Chloride 102 mmol/L (98-107); Sodium 136 mmol/L (136-145)
[2024-05-12 07:04] LABS: Anion Gap 10 (5-15); Carbon Dioxide 24 mmol/L (20-31)
[2024-05-12 07:06] LABS: Basophils # (auto) 0.1 10 ^3/uL (0-0.2); Basophils % (auto) 0.5 % (0.0-2.0); Eosinophils # (auto) 0.1 10 ^3/uL (0-0.8); Eosinophils % (auto) 0.7 % (0.0-7.0); Hematocrit 26.5 % (41.0-53.0); Hemoglobin 9.3 g/dL (13.5-17.5); Lymphocytes # (auto) 1.5 10 ^3/uL (0.4-5.4); Lymphocytes % (auto) 14.6 % (10.0-50.0); Mean Corpuscular Hemoglobin 30.9 pg (28.0-32.0); Mean Corpuscular Volume 88.4 fL (80.0-100.0); Monocytes # (auto) 0.9 10 ^3/uL (0-1.3); Monocytes % (auto) 8.3 % (0.0-12.0); Neutrophils % (auto) 75.9 % (37.0-80.0); Platelet Count (auto) 296 10^3/uL (140-450); Red Cell Distribution Width 13.3 % (11.8-14.3); White Blood Cell 10.5 10^3/uL (4.4-10.8)
[2024-05-12 07:09] LABS: BUN/Creatinine Ratio 4.8 (10.0-20.0); Blood Urea Nitrogen 38 mg/dL (9-23); Glucose 88 mg/dL (74-106)
--- NOTE | 2024-05-12 10:23 | ECG ---
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
--- NOTE | 2024-05-12 10:40 | DVHPN2 ---
Progress Note - Dictate Date Seen: May 12, 2024 Has the PT tested + for MRSA If YES, has PT been informed?: Yes Medical Necessity Reason Pt with a Central, PICC or Fol: No Subjective COMFORTABLE SLEEPING THIS MORNING. vital signs Vital Sign Date Time Temp Pulse Resp B/P (MAP) Pulse Ox O2 Delivery O2 Flow Rate FiO2 05/12/24 09:05 136/78 05/12/24 09:05 91 05/12/24 08:00 Room Air* 0 21 05/12/24 05:00 98.6 18 96 98.6 Total Intake and Output 05/11/24 05/11/24 05/12/24 15:00 23:00 07:00 Intake Total 2050 ml 240 ml Balance 2050 ml 240 ml medications Current Medications Medications Dose Ordered Sig/Kiran Route Start Time Stop Time Status Last Admin Dose Admin Atorvastatin Calcium 20 mg HS PO 05/08/24 22:00 05/11/24 22:52 20 MG Ergocalciferol 50,000 unit QWEEKLY PO 05/08/24 13:30 Insulin Glargine 20 units QPM SC 05/08/24 18:00 05/11/24 17:48 20 UNITS Pantoprazole Sodium 40 mg DAILY PO 05/09/24 10:00 05/12/24 08:53 40 MG Lorazepam 0.5 mg Q6HP PRN PO 05/08/24 13:30 05/10/24 11:40 0.5 MG Al Hydrox/Mg Hydrox/Simethicone 30 ml Q6HP PRN PO 05/08/24 13:30 05/11/24 00:50 30 ML Docusate Sodium 100 mg BIDPRN PRN PO 05/08/24 13:30 Acetaminophen 650 mg Q6HP PRN PO 05/08/24 13:30 Temazepam 15 mg QHSP PRN PO 05/08/24 13:30 Acetaminophen/ Hydrocodone Bitart 1 tab Q4HP PRN PO 05/08/24 13:30 Diagnostic Test (Pha) 1 strip IQ4HR 05/08/24 20:00 05/12/24 08:53 1 STRIP Insulin Human Regular IQ4HR SC 05/08/24 20:00 05/11/24 20:00 3 UNITS Dextrose 50 ml UD PRN IV 05/08/24 18:00 Ondansetron HCl 4 mg Q4HP PRN IV 05/08/24 19:45 05/11/24 05:01 4 MG Morphine Sulfate 4 mg Q4HPRN PRN IV 05/09/24 00:30 05/12/24 03:11 4 MG Clonidine HCl 0.2 mg Q6HP PRN PO 05/09/24 00:25 05/09/24 12:21 0.2 MG Hydralazine HCl 100 mg Q8HR PO 05/09/24 14:00 05/12/24 05:59 100 MG Sevelamer HCl 800 mg TIDWM PO 05/09/24 18:00 05/12/24 08:53 800 MG Metoprolol Tartrate 50 mg BID PO 05/09/24 22:00 05/12/24 09:05 50 MG Calcium Acetate 667 mg TIDWMEALS PO 05/09/24 18:00 05/12/24 08:52 667 MG Furosemide 40 mg BIDD PO 05/09/24 18:00 05/11/24 05:02 40 MG Amlodipine Besylate 10 mg DAILY PO 05/11/24 10:00 05/12/24 09:05 10 MG Metoclopramide HCl 10 mg Q8HR IV 05/11/24 14:00 05/12/24 05:58 10 MG Iron Sucrose 110 ml @ 110 mls/hr DAILY@1200 IV 05/12/24 12:00 05/13/24 12:59 Ondansetron HCl 4 mg TIDPRN PRN PO 05/11/24 14:45 objective HEENT: No evidence of JVD, no oral ulcers. Pulmonary: Lungs are clear on auscultation bilaterally Cardiovascular S1-S2, no S3 or S4 Abdomen: Bowel sounds positive, soft no rebound tenderness Skin: No rash Neurological: Alert, oriented, no focal weakness laboratory and microbiology Laboratory Tests 05/12/24 05:38 Test 05/12/24 05:38 Range/Units Serum Glucose 88 # 74-106 mg/dL Assessment/Plan Assessment: Chronic kidney disease 5 secondary to diabetic nephropathy. 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 Plan Patient has agreed to initiate renal replacement therapy. His preferred modality is peritoneal dialysis. Dr. Main has been consulted for placement of PD catheter tomorrow. Anderson for goal hemoglobin 10-11 g/dl Blood pressure control. Case management for outpatient dialysis placement in [facility]. Thank you very much for allowing us to participate in the care of this patient please contact if you have any questions. Plan discussed with: Patient DARREN MARCUM MD May 12, 2024 10:40
[2024-05-12] MEDS: IRON SUCROSE COMPLEX 110 ML IV SCH (12:35)
--- NOTE | 2024-05-12 12:52 | DVHPNRES ---
Progress Note Date Seen: May 12, 2024 Resident Creating Document: ANIYA BRADY RESIDENT Has the PT tested + for MRSA If YES, has PT been informed?: Yes Medical Necessity Reason Pt with a Central, PICC or Fol: No Subjective Review of Systems Mr Mayank Watters, a 29-year-old male with a history of diabetes, stage 5 chronic kidney disease, and hypertension presented with abdominal pain, nausea, and vomiting for the past three days, with 4-5 episodes of vomiting daily, but no blood in the vomitus. His last vomiting episode was on 05/08/2024. He reported severe, generalized abdominal pain (8-10/10) but currently denies any pain. The patient, who has had similar symptoms leading to hospitalization two weeks ago, is a poor historian and unsure of his home medications, though he takes hydralazine. He lives with his fiance, is unemployed, occasionally uses marijuana, and denies tobacco or alcohol use. He is allergic to penicillin. Objective vital signs Vital Sign Date Time Temp Pulse Resp B/P (MAP) Pulse Ox O2 Delivery O2 Flow Rate FiO2 05/12/24 12:46 92 18 144/83 05/12/24 08:00 Room Air* 0 21 05/12/24 05:00 98.6 96 98.6 Total Intake and Output 05/11/24 05/11/24 05/12/24 15:00 23:00 07:00 Intake Total 2050 ml 240 ml Balance 2050 ml 240 ml medications Current Medications Medications Dose Ordered Sig/Kiran Route Start Time Stop Time Status Last Admin Dose Admin Atorvastatin Calcium 20 mg HS PO 05/08/24 22:00 05/11/24 22:52 20 MG Ergocalciferol 50,000 unit QWEEKLY PO 05/08/24 13:30 Insulin Glargine 20 units QPM SC 05/08/24 18:00 05/11/24 17:48 20 UNITS Pantoprazole Sodium 40 mg DAILY PO 05/09/24 10:00 05/12/24 08:53 40 MG Lorazepam 0.5 mg Q6HP PRN PO 05/08/24 13:30 05/10/24 11:40 0.5 MG Al Hydrox/Mg Hydrox/Simethicone 30 ml Q6HP PRN PO 05/08/24 13:30 05/11/24 00:50 30 ML Docusate Sodium 100 mg BIDPRN PRN PO 05/08/24 13:30 Acetaminophen 650 mg Q6HP PRN PO 05/08/24 13:30 Temazepam 15 mg QHSP PRN PO 05/08/24 13:30 Acetaminophen/ Hydrocodone Bitart 1 tab Q4HP PRN PO 05/08/24 13:30 Diagnostic Test (Pha) 1 strip IQ4HR 05/08/24 20:00 05/12/24 12:41 1 STRIP Insulin Human Regular IQ4HR SC 05/08/24 20:00 05/11/24 20:00 3 UNITS Dextrose 50 ml UD PRN IV 05/08/24 18:00 Ondansetron HCl 4 mg Q4HP PRN IV 05/08/24 19:45 05/11/24 05:01 4 MG Morphine Sulfate 4 mg Q4HPRN PRN IV 05/09/24 00:30 05/12/24 12:46 4 MG Clonidine HCl 0.2 mg Q6HP PRN PO 05/09/24 00:25 05/09/24 12:21 0.2 MG Hydralazine HCl 100 mg Q8HR PO 05/09/24 14:00 05/12/24 05:59 100 MG Sevelamer HCl 800 mg TIDWM PO 05/09/24 18:00 05/12/24 12:36 800 MG Metoprolol Tartrate 50 mg BID PO 05/09/24 22:00 05/12/24 09:05 50 MG Calcium Acetate 667 mg TIDWMEALS PO 05/09/24 18:00 05/12/24 12:36 667 MG Furosemide 40 mg BIDD PO 05/09/24 18:00 05/11/24 05:02 40 MG Amlodipine Besylate 10 mg DAILY PO 05/11/24 10:00 05/12/24 09:05 10 MG Metoclopramide HCl 10 mg Q8HR IV 05/11/24 14:00 05/12/24 05:58 10 MG Iron Sucrose 110 ml @ 110 mls/hr DAILY@1200 IV 05/12/24 12:00 05/13/24 12:59 05/12/24 12:35 110 MLS/HR Ondansetron HCl 4 mg TIDPRN PRN PO 05/11/24 14:45 Examination PSYCH: Good Judgment. AOx3. Normal memory, mood, and affect. HEENT -Head: normocephalic atraumatic, no facial trauma, neck is supple NECK: Supple, with no masses. CV: RRR, no m/r/g. LUNGS: respiratory effort normal, speaks in full sentences, no tripod position, no accessory muscle use. Lungs clear to auscultation without rhonchi, wheezes, rales ABD: Soft, ND/NT. No evidence of fluid wave. No pulsatile masses on exam, rebound tenderness, Schuster sign or pain over Mcburney's point. SKIN: Warm, well perfused. No skin rashes or abnormal lesions. MSK: No deformities or signs of scoliosis. Normal gait. EXT: No clubbing, cyanosis, or edema. NEURO: Ambulating with no limitations. Normal muscle strength and tone. No focal deficits laboratory and microbiology Laboratory Tests 05/12/24 05:38 Test 05/12/24 05:38 Range/Units Serum Glucose 88 # 74-106 mg/dL Microbiology Date/Time Source Procedure Growth Status 05/09/24 12:00 Blood Blood Culture - Preliminary NO GROWTH AFTER 72 HOURS OF INCUBATION. Resulted Problem List/Assessment/Plan Problem List/Assessment/Plan #acute renal failure, likely due to progressed from CKD due to type 1 diabetes mellitus nephrology on board patient agreed on peritoneal dialysis. Appreciate Nephrology input. Hepatitis panel negative Pending peritoneal dialysis catheter per surgery possible tomorrow NPO today night #diabetic nephropathy #gastroparesis: can explain the nausea and vomiting metoclopramide and zofran Likely nephrotic range proteinuria due to diabetic nephropathy ongoing evaluation at [place] for possible kidney transplant. # Hyperkalemia due to above, resolved # Acute on chronic anemia due to chronic disease, 9.3 patient agreed on PRBC transfusion via IV line, transfusion threshold 7. # Hypertension: amlodipine 10 mg dialy clonidine PRN Hydralazine PRN Metoprolol 50 mg BID # Type 1 diabetes has a BG sensor , insulin sliding scale #Hyperphosphatemia Sevalamer # Vitamin-D deficiency : Continue supplements # DVT prophylaxis: Levonox 40mg # PPI prophylaxis with pantoprazole Barriers to discharge: Ongoing treatment. Need to start peritoneal dialysis. Plan discussed with Dr. Sim Code status : Full code, discussed for 37 minutes. Plan discussed with: Patient, Other (rn) My Orders My Orders Orders - ANIYA BRADY RESIDENT Procedure Category Date Status Time Ondansetron Po PHA 05/11/24 In Process (Zofran Po) 14:45 Communication Order ORDERS 05/12/24 Transmitted 06:32 Date of Service: May 12, 2024 Billing Provider: ANGIE SIM MD Common Visit Codes: [id number] INP/OBS CARE(HIGH) Coding Comment Comment Attending Attestation I saw and evaluated the patient. I reviewed the residents note and agree with findings and plan as documented in the residents note except as documented below. ANIYA BRADY RESIDENT May 12, 2024 12:52 ANGIE SIM MD May 12, 2024 19:55
[2024-05-12] MEDS: METOCLOPRAMIDE HCL 5MG/ml INJ 2ml VIAL IV SCH (15:21)
[2024-05-13] VITALS (8 sets, daily range): BP systolic 128–155; BP diastolic 70–89; PULSE 62–96; RESP 11–20; TEMP 97.7–98.5; O2SAT 91–100
[2024-05-13] MEDS: DEXTROSE (50%) 50ML SYRG IV PRN ×2 (02:07→08:39)
[2024-05-13] MEDS: LIDOCAINE 1% HCL (LOCAL ANESTH.) INJ 20ML MDV ONE ×2 (06:47→08:10)
[2024-05-13] MEDS: BUPIVACAINE HCL 50 ML ONE (06:47)
[2024-05-13] MEDS ORDERED: ONDANSETRON HCL 4 MG/2 ML VIAL ONE (06:50)
[2024-05-13] MEDS ORDERED: DexAMETHasone SOD PHOS 10MG/1ML VIAL INJ ONE (06:50)
[2024-05-13] MEDS ORDERED: PROPOFOL 10 MG/ML 20 ML IV ONE (06:50)
[2024-05-13] MEDS ORDERED: GLYCOPYRROLATE 0.2 MG/ML 1ML VIAL ONE (06:50)
[2024-05-13] MEDS ORDERED: ROCURONIUM 10MG/ML 10ML VIAL IV ONE (06:50)
[2024-05-13] MEDS ORDERED: LIDOCAINE 2% (LOCAL ANESTH.) PF 5ml SDV ONE (06:50)
[2024-05-13] MEDS ORDERED: KETAMINE 50mg/ML 1ml syringe ONE (06:54)
[2024-05-13] MEDS ORDERED: fentaNYL CITRATE 100 MCG/2 ML VL ONE (06:54)
[2024-05-13] MEDS: GABAPENTIN 300 MG CAP PO ONE (07:00)
[2024-05-13] MEDS: ACETAMINOPHEN IV 1000 MG/100ML (10MG/ML) IV ONE (07:00)
[2024-05-13 07:10] LABS: Basophils # (auto) 0 10 ^3/uL (0-0.2); Basophils % (auto) 0.4 % (0.0-2.0); Eosinophils # (auto) 0.1 10 ^3/uL (0-0.8); Eosinophils % (auto) 0.7 % (0.0-7.0); Hematocrit 28.4 % (41.0-53.0); Hemoglobin 9.7 g/dL (13.5-17.5); Lymphocytes # (auto) 1.7 10 ^3/uL (0.4-5.4); Mean Corpuscular Hemoglobin 30.1 pg (28.0-32.0); Mean Corpuscular Hgb Conc. 33.9 g/dL (32.0-36.0); Mean Corpuscular Volume 88.6 fL (80.0-100.0); Monocytes # (auto) 0.9 10 ^3/uL (0-1.3); Monocytes % (auto) 8.1 % (0.0-12.0); Neutrophils # (auto) 8.7 10 ^3/uL (1.6-8.6); Neutrophils % (auto) 75.8 % (37.0-80.0); Platelet Count (auto) 346 10^3/uL (140-450); Red Blood Cells 3.21 10^6/uL (4.5-5.90); Red Cell Distribution Width 13.7 % (11.8-14.3); White Blood Cell 11.5 10^3/uL (4.4-10.8)
[2024-05-13] MEDS ORDERED: ceFAZolin 1GM/50ML 50 ML IV ONE (07:11)
[2024-05-13] MEDS ORDERED: SUGAMMADEX 200mg/2ml Vial (100MG/ML) IV ONE (07:11)
[2024-05-13 07:17] LABS: Anion Gap 9 (5-15); Carbon Dioxide 23 mmol/L (20-31); Chloride 103 mmol/L (98-107); Potassium 4.1 mmol/L (3.5-5.1); Sodium 135 mmol/L (136-145)
[2024-05-13] MEDS: HEPARIN SODIUM (PORCINE) 5000 UNITS/ML 1ML VIAL ONE ×2 (07:20→08:00)
[2024-05-13 07:23] LABS: BUN/Creatinine Ratio 4.4 (10.0-20.0); Blood Urea Nitrogen 39 mg/dL (9-23); Glucose 77 mg/dL (74-106)
[2024-05-13] MEDS ORDERED: ceFAZolin 1GM VL ONE (07:26)
[2024-05-13] MEDS ORDERED: ePHEDrine SULFATE 50 MG/ML AMP IV PRN (08:30)
[2024-05-13] MEDS ORDERED: oxyCODONE HCL 5MG TAB PO PRN (08:30)
[2024-05-13] MEDS ORDERED: HYDROmorphone HCL 2 MG/ML VL/or syr IV PRN (08:30)
[2024-05-13] MEDS ORDERED: hydrALAZINE HCL 20 MG/ML VL IV PRN (08:30)
[2024-05-13] MEDS ORDERED: fentaNYL CITRATE 100 MCG/2 ML VL IV PRN (08:30)
[2024-05-13] MEDS ORDERED: ONDANSETRON HCL 4 MG/2 ML VIAL IV PRN (08:30)
[2024-05-13] MEDS ORDERED: FLUMAZENIL 0.1 MG/ML INJ 10ML MDV IV PRN (08:30)
[2024-05-13] MEDS ORDERED: NALOXONE HCL 0.4 MG/ML VIAL IV PRN (08:30)
--- NOTE | 2024-05-13 09:33 | DVHOP ---
DATE OF SURGERY: 05/13/2024 PREOPERATIVE DIAGNOSIS: Chronic kidney disease, progressing to end-stage renal disease. POSTOPERATIVE DIAGNOSIS: Chronic kidney disease, progressing to end-stage renal disease. PROCEDURE: Laparoscopic placement of peritoneal dialysis catheter. SURGEON: Luther Main MD CONSERVATION EDUCATOR: None. ANESTHESIOLOGIST: Santos Mesa CRNA ANESTHESIA: General by means of endotracheal intubation. INTRAOPERATIVE FINDINGS: Fully patent pelvic cul-de-sac. No acute inflammatory changes. Normal appendix. Excellent functioning peritoneal dialysis catheter. ESTIMATED BLOOD LOSS: Minimal. INTRAVENOUS FLUIDS: Per anesthesia charting. URINE OUTPUT: Not recorded given the Adame catheter was not inserted. DRAINS: None. IMPLANTS: 62.5 cm swan neck double cuffed right-sided peritoneal dialysis catheter. COMPLICATIONS: None. DISPOSITION: Procedure well tolerated and transferred to recovery room in stable condition. INDICATIONS FOR PROCEDURE: The patient is an unfortunate 29-year-old male with history of diabetes, hypertension and CKD. His renal function has progressively deteriorated requiring dialysis. The patient had a lengthy discussion with the twisting frame fixer with regard to his options, and he elected to proceed with peritoneal dialysis. The patient was evaluated and found to be a good candidate for peritoneal dialysis. I had a lengthy discussion with the patient and recommended laparoscopic placement of peritoneal dialysis catheter. The procedure, risks and benefits were explained in a detailed and extensive fashion. He was made aware of potential complications such as bleeding, infection, spontaneous bacterial peritonitis, injury to internal organs, blood vessels and/or nerves, catheter dislodgement requiring additional procedures, among other complications. All questions were answered. He understood and agreed to proceed. DESCRIPTION OF PROCEDURE: The patient was taken to the operating room. He was placed in the dorsal decubitus position on the operating room table. Once adequate anesthesia was achieved, the arms were placed, the left side was tucked to his side, paying careful attention on providing adequate positioning as well as padding to prevent any potential injuries. The abdomen was then widely prepped and draped in the usual sterile fashion. The patient received prophylactic heparin as well as prophylactic antibiotics. My attention was directed towards the periumbilical region where local anesthesia consisting of 1% lidocaine, 0.5% Marcaine was infiltrated. The abdominal wall was retracted anteriorly and a Veress needle was inserted into the abdominal cavity via the base of the umbilicus. Pneumoperitoneum of 15 mmHg was achieved. My attention was directed towards the left upper quadrant region where a 5 mm trocar was placed. A 5-mm 30-degree laparoscope was inserted into the abdominal cavity. A thorough survey of the abdominal cavity did not reveal any evidence of injury or bleeding upon entry. The Veress needle was removed from the abdominal cavity under direct laparoscopic visualization. My attention was then directed to the left lower quadrant region where a 5 mm trocar was placed. In the right infraumbilical paramedian region, an 8 mm trocar was placed. All trocars were placed with preemptive local anesthesia as well as under direct laparoscopic visualization. A right-sided swan neck 62.5 cm double cuffed peritoneal dialysis catheter was advanced into the pelvic cul-de-sac over the stylet leaving the catheter in the pelvic cul-de-sac. I ensured that the distal cuff was within the abdominal wall. The patient was returned to the neutral position as he was placed in the Trendelenburg position for placement of the catheter. The pneumoperitoneum was evacuated. The catheter was tunneled laterally and inferiorly following the pre-shape curve of the catheter externalizing the catheter approximately 2-3 cm from the proximal cuff. The catheter was connected to a sterile cystoscopy line, which was in turn connected to a 1 liter bag of sterile saline solution. The pneumoperitoneum had been evacuated. The fluid was allowed to instill upon gravity. There was no obstructive flow. The entire 1 liter bag was infused. The bag was then placed on the floor obtaining approximately 800 mL of clear fluid. At this time, the catheter was found to be in adequate position as well as functioning well. The laparoscopic equipment was removed from the patient. The wound was washed and dried. The skin was closed with 4-0 Monocryl in a subcuticular fashion. Sterile dressings were applied. The catheter was assembled to the exchange tubing and it was flushed with 5000 heparinized solution. The catheter was covered with the dressing, leaving the exchange connector out just in case the patient required to initiate acute peritoneal dialysis. The patient tolerated the procedure well. There were no complications. He was successfully extubated in the operating room and transferred to recovery room in stable condition. MD ALPESH Leggett/GURMEET TID: [id number] RECEIPT: [id number]
--- NOTE | 2024-05-13 12:19 | DVHPN2 ---
Progress Note - Dictate Date Seen: May 13, 2024 Has the PT tested + for MRSA If YES, has PT been informed?: Yes Medical Necessity Reason Pt with a Central, PICC or Fol: No Subjective Drowsy postoperatively no distress. vital signs Vital Sign Date Time Temp Pulse Resp B/P (MAP) Pulse Ox O2 Delivery O2 Flow Rate FiO2 05/13/24 08:21 98.7 73 11 107/74 (85) 10 98.7 05/13/24 08:21 Mask 5.0 100 Total Intake and Output 05/12/24 05/12/24 05/13/24 15:00 23:00 07:00 Intake Total 110 ml 200 ml 400 ml Output Total 450 ml Balance 110 ml 200 ml -50 ml medications Current Medications Medications Dose Ordered Sig/Kiran Route Start Time Stop Time Status Last Admin Dose Admin Atorvastatin Calcium 20 mg HS PO 05/08/24 22:00 05/12/24 22:44 20 MG Ergocalciferol 50,000 unit QWEEKLY PO 05/08/24 13:30 Insulin Glargine 20 units QPM SC 05/08/24 18:00 05/12/24 17:28 20 UNITS Pantoprazole Sodium 40 mg DAILY PO 05/09/24 10:00 05/12/24 08:53 40 MG Lorazepam 0.5 mg Q6HP PRN PO 05/08/24 13:30 05/12/24 20:48 0.5 MG Al Hydrox/Mg Hydrox/Simethicone 30 ml Q6HP PRN PO 05/08/24 13:30 05/11/24 00:50 30 ML Docusate Sodium 100 mg BIDPRN PRN PO 05/08/24 13:30 Acetaminophen 650 mg Q6HP PRN PO 05/08/24 13:30 Temazepam 15 mg QHSP PRN PO 05/08/24 13:30 Acetaminophen/ Hydrocodone Bitart 1 tab Q4HP PRN PO 05/08/24 13:30 Diagnostic Test (Pha) 1 strip IQ4HR 05/08/24 20:00 05/13/24 03:37 1 STRIP Insulin Human Regular IQ4HR SC 05/08/24 20:00 05/12/24 20:34 4 UNITS Dextrose 50 ml UD PRN IV 05/08/24 18:00 05/13/24 02:07 50 ML Ondansetron HCl 4 mg Q4HP PRN IV 05/08/24 19:45 05/13/24 04:07 4 MG Clonidine HCl 0.2 mg Q6HP PRN PO 05/09/24 00:25 05/09/24 12:21 0.2 MG Hydralazine HCl 100 mg Q8HR PO 05/09/24 14:00 05/12/24 22:55 100 MG Sevelamer HCl 800 mg TIDWM PO 05/09/24 18:00 05/12/24 17:19 800 MG Metoprolol Tartrate 50 mg BID PO 05/09/24 22:00 05/12/24 22:44 50 MG Calcium Acetate 667 mg TIDWMEALS PO 05/09/24 18:00 05/12/24 17:19 667 MG Furosemide 40 mg BIDD PO 05/09/24 18:00 05/11/24 05:02 40 MG Amlodipine Besylate 10 mg DAILY PO 05/11/24 10:00 05/12/24 09:05 10 MG Iron Sucrose 110 ml @ 110 mls/hr DAILY@1200 IV 05/12/24 12:00 05/13/24 12:59 05/12/24 12:35 110 MLS/HR Ondansetron HCl 4 mg TIDPRN PRN PO 05/11/24 14:45 Metoclopramide HCl 5 mg ACHS IV 05/12/24 14:30 05/12/24 22:43 5 MG Morphine Sulfate 2 mg Q2HP PRN IV 05/13/24 08:30 Oxycodone HCl 10 mg ONCE PRN PO 05/13/24 08:30 Dextrose 12.5 ml ONCE PRN IV 05/13/24 08:30 05/13/24 08:39 12.5 ML objective HEENT: No evidence of JVD, no oral ulcers. 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 Plan Status post peritoneal dialysis placement May 13, 2024. I have discussed the case with Dr. Jose David griffin to proceed with low volume PD in a.m. Anderson for goal hemoglobin 10-11 g/dl Blood pressure control. Case management for outpatient dialysis placement in [facility]. Thank you very much for allowing us to participate in the care of this patient please contact if you have any questions. Plan discussed with: Patient DARREN MARCUM MD May 13, 2024 12:19
[2024-05-13 15:39] LABS: Chloride 101 mmol/L (98-107); Potassium 4.5 mmol/L (3.5-5.1); Sodium 134 mmol/L (136-145)
[2024-05-13 15:40] LABS: Anion Gap 11 (5-15); Carbon Dioxide 22 mmol/L (20-31)
[2024-05-13 15:41] LABS: Calcium 9.1 mg/dL (8.7-10.4)
[2024-05-13 15:45] LABS: BUN/Creatinine Ratio 4.6 (10.0-20.0); Blood Urea Nitrogen 42 mg/dL (9-23)
[2024-05-13 15:53] LABS: Glucose 177 mg/dL (74-106)
--- NOTE | 2024-05-13 18:21 | DVHPNRES ---
Progress Note Date Seen: May 13, 2024 Resident Creating Document: ANIYA BRADY RESIDENT Has the PT tested + for MRSA If YES, has PT been informed?: Yes Medical Necessity Reason Pt with a Central, PICC or Fol: No Subjective Review of Systems Mr Mayank Watters, a 29-year-old male with a history of diabetes, stage 5 chronic kidney disease, and hypertension presented with abdominal pain, nausea, and vomiting for the past three days, with 4-5 episodes of vomiting daily, but no blood in the vomitus. His last vomiting episode was on 05/08/2024. He reported severe, generalized abdominal pain (8-10/10) but currently denies any pain. The patient, who has had similar symptoms leading to hospitalization two weeks ago, is a poor historian and unsure of his home medications, though he takes hydralazine. He lives with his fiance, is unemployed, occasionally uses marijuana, and denies tobacco or alcohol use. He is allergic to penicillin. Objective vital signs Vital Sign Date Time Temp Pulse Resp B/P (MAP) Pulse Ox O2 Delivery O2 Flow Rate FiO2 05/13/24 17:00 98.5 91 20 144/87 (106) 94 98.5 05/13/24 10:00 Room Air* 0 21 Total Intake and Output 05/12/24 05/12/24 05/13/24 15:00 23:00 07:00 Intake Total 110 ml 200 ml 400 ml Output Total 450 ml Balance 110 ml 200 ml -50 ml medications Current Medications Medications Dose Ordered Sig/Kiran Route Start Time Stop Time Status Last Admin Dose Admin Atorvastatin Calcium 20 mg HS PO 05/08/24 22:00 05/12/24 22:44 20 MG Ergocalciferol 50,000 unit QWEEKLY PO 05/08/24 13:30 Insulin Glargine 20 units QPM SC 05/08/24 18:00 05/12/24 17:28 20 UNITS Pantoprazole Sodium 40 mg DAILY PO 05/09/24 10:00 05/12/24 08:53 40 MG Lorazepam 0.5 mg Q6HP PRN PO 05/08/24 13:30 05/12/24 20:48 0.5 MG Al Hydrox/Mg Hydrox/Simethicone 30 ml Q6HP PRN PO 05/08/24 13:30 05/11/24 00:50 30 ML Docusate Sodium 100 mg BIDPRN PRN PO 05/08/24 13:30 Acetaminophen 650 mg Q6HP PRN PO 05/08/24 13:30 Temazepam 15 mg QHSP PRN PO 05/08/24 13:30 Acetaminophen/ Hydrocodone Bitart 1 tab Q4HP PRN PO 05/08/24 13:30 Diagnostic Test (Pha) 1 strip IQ4HR 05/08/24 20:00 05/13/24 16:00 1 STRIP Insulin Human Regular IQ4HR SC 05/08/24 20:00 05/12/24 20:34 4 UNITS Dextrose 50 ml UD PRN IV 05/08/24 18:00 05/13/24 02:07 50 ML Ondansetron HCl 4 mg Q4HP PRN IV 05/08/24 19:45 05/13/24 04:07 4 MG Clonidine HCl 0.2 mg Q6HP PRN PO 05/09/24 00:25 05/09/24 12:21 0.2 MG Hydralazine HCl 100 mg Q8HR PO 05/09/24 14:00 05/12/24 22:55 100 MG Sevelamer HCl 800 mg TIDWM PO 05/09/24 18:00 05/12/24 17:19 800 MG Metoprolol Tartrate 50 mg BID PO 05/09/24 22:00 05/12/24 22:44 50 MG Calcium Acetate 667 mg TIDWMEALS PO 05/09/24 18:00 05/12/24 17:19 667 MG Furosemide 40 mg BIDD PO 05/09/24 18:00 05/11/24 05:02 40 MG Amlodipine Besylate 10 mg DAILY PO 05/11/24 10:00 05/12/24 09:05 10 MG Ondansetron HCl 4 mg TIDPRN PRN PO 05/11/24 14:45 Metoclopramide HCl 5 mg ACHS IV 05/12/24 14:30 05/13/24 12:55 5 MG Morphine Sulfate 2 mg Q2HP PRN IV 05/13/24 08:30 Oxycodone HCl 10 mg ONCE PRN PO 05/13/24 08:30 Dextrose 12.5 ml ONCE PRN IV 05/13/24 08:30 05/13/24 08:39 12.5 ML Examination PSYCH: Good Judgment. AOx3. Normal memory, mood, and affect. HEENT -Head: normocephalic atraumatic, no facial trauma, neck is supple NECK: Supple, with no masses. CV: RRR, no m/r/g. LUNGS: respiratory effort normal, speaks in full sentences, no tripod position, no accessory muscle use. Lungs clear to auscultation without rhonchi, wheezes, rales ABD: Soft, catheter on place, no bleeding SKIN: Warm, well perfused. No skin rashes or abnormal lesions. MSK: No deformities or signs of scoliosis. Normal gait. EXT: No clubbing, cyanosis, or edema. NEURO: Ambulating with no limitations. Normal muscle strength and tone. No focal deficits laboratory and microbiology Laboratory Tests 05/13/24 15:16 05/13/24 06:30 Test 05/13/24 15:16 Range/Units Serum Glucose 177 #H 74-106 mg/dL Microbiology Date/Time Source Procedure Growth Status 05/09/24 12:00 Blood Blood Culture - Preliminary NO GROWTH AFTER 72 HOURS OF INCUBATION. Resulted Problem List/Assessment/Plan Problem List/Assessment/Plan #acute renal failure, likely due to progressed from CKD due to type 1 diabetes mellitus nephrology on board patient agreed on peritoneal dialysis. Appreciate Nephrology input. Hepatitis panel negative s/p peritoneal dialysis catheter per surgery ok to use tomorrow am #diabetic nephropathy #gastroparesis: can explain the nausea and vomiting metoclopramide and zofran Likely nephrotic range proteinuria due to diabetic nephropathy ongoing evaluation at [place] for possible kidney transplant. # Hyperkalemia due to above, resolved # Acute on chronic anemia due to chronic disease, 9.7 patient agreed on PRBC transfusion via IV line, transfusion threshold 7. Use of EPOgen? per nephro # Hypertension: amlodipine 10 mg dialy clonidine PRN Hydralazine PRN Metoprolol 50 mg BID # Type 1 diabetes has a BG sensor , insulin sliding scale #Hyperphosphatemia Sevalamer # Vitamin-D deficiency : Continue supplements # DVT prophylaxis: Levonox 40mg # PPI prophylaxis with pantoprazole Barriers to discharge: Ongoing treatment. Need to start peritoneal dialysis. Plan discussed with Dr. Otto Code status : Full code, discussed for 37 minutes. Plan discussed with: Patient, Other (rn) Dietary Evaluation Review Comments: Continue current plan of care Expected Outcomes/Goals: F/U in 3-5 days Date of Service: May 13, 2024 Billing Provider: ANGIE OTTO MD Common Visit Codes: [id number] INP/OBS CARE(HIGH) Coding Comment Comment Attending Attestation I saw and evaluated the patient. I reviewed the residents note and agree with findings and plan as documented in the residents note except as documented below. ANIYA BRADY RESIDENT May 13, 2024 18:21 NAGIE OTTO MD May 13, 2024 20:34
[2024-05-13] MEDS: ACETAMINOPHEN 325 MG TAB PO PRN (20:20)
[2024-05-13] MEDS: MORPHINE SULFATE INJ 2 MG/ml SYRG IV PRN (23:49)
[2024-05-14] VITALS (11 sets, daily range): BP systolic 116–153; BP diastolic 67–94; PULSE 79–98; RESP 16–20; TEMP 97.9–98.3; O2SAT 93–100
[2024-05-14 07:23] LABS: Basophils # (auto) 0 10 ^3/uL (0-0.2); Basophils % (auto) 0.1 % (0.0-2.0); Eosinophils # (auto) 0 10 ^3/uL (0-0.8); Hemoglobin 8.3 g/dL (13.5-17.5); White Blood Cell 14.9 10^3/uL (4.4-10.8)
[2024-05-14 07:27] LABS: Hematocrit 24.8 % (41.0-53.0); Lymphocytes # (auto) 1.3 10 ^3/uL (0.4-5.4); Lymphocytes % (auto) 8.5 % (10.0-50.0); Mean Corpuscular Hemoglobin 30.1 pg (28.0-32.0); Mean Corpuscular Hgb Conc. 33.5 g/dL (32.0-36.0); Neutrophils # (auto) 12.5 10 ^3/uL (1.6-8.6); Neutrophils % (auto) 84.4 % (37.0-80.0); Platelet Count (auto) 316 10^3/uL (140-450); Red Blood Cells 2.76 10^6/uL (4.5-5.90); Red Cell Distribution Width 13.5 % (11.8-14.3)
[2024-05-14 07:28] LABS: Alkaline Phosphatase 118 U/L (46-116); Anion Gap 9 (5-15); Calcium 8.5 mg/dL (8.7-10.4); Carbon Dioxide 21 mmol/L (20-31); Chloride 96 mmol/L (98-107)
[2024-05-14 07:29] LABS: Aspartate Aminotransferase 15 U/L (13-40); BUN/Creatinine Ratio 5.2 (10.0-20.0)
[2024-05-14 07:30] LABS: Albumin 3.1 g/dL (3.2-4.8)
[2024-05-14 07:31] LABS: Bilirubin, Total < 0.2 mg/dL (0.2-1.0); Total Protein 5.5 g/dL (5.7-8.2)
[2024-05-14 07:35] LABS: Sodium 126 mmol/L (136-145)
[2024-05-14 07:39] LABS: Glucose 336 mg/dL (74-106)
[2024-05-14 07:40] LABS: Blood Urea Nitrogen 55 mg/dL (9-23)
[2024-05-14 07:43] LABS: Alanine Aminotransferase < 9 U/L (7-40)
[2024-05-14 07:46] LABS: Potassium 5.6 mmol/L (3.5-5.1)
--- NOTE | 2024-05-14 08:19 | DVHPN2 ---
Progress Note - Dictate Date Seen: May 14, 2024 Has the PT tested + for MRSA If YES, has PT been informed?: Yes Medical Necessity Reason Pt with a Central, PICC or Fol: No Subjective Patient is feeling somehow weak with decreased appetite, he is sitting at the side of the bed he denies nausea vomiting or abdominal pain. vital signs Vital Sign Date Time Temp Pulse Resp B/P (MAP) Pulse Ox O2 Delivery O2 Flow Rate FiO2 05/14/24 05:31 139/86 05/14/24 05:00 98.3 85 17 96 98.3 05/13/24 20:00 Room Air* 0 21 Total Intake and Output 05/13/24 05/13/24 05/14/24 15:00 23:00 07:00 Intake Total 110 ml 0 ml 400 ml Balance 110 ml 0 ml 400 ml medications Current Medications Medications Dose Ordered Sig/Kiran Route Start Time Stop Time Status Last Admin Dose Admin Atorvastatin Calcium 20 mg HS PO 05/08/24 22:00 05/13/24 21:19 20 MG Ergocalciferol 50,000 unit QWEEKLY PO 05/08/24 13:30 Insulin Glargine 20 units QPM SC 05/08/24 18:00 05/12/24 17:28 20 UNITS Pantoprazole Sodium 40 mg DAILY PO 05/09/24 10:00 05/12/24 08:53 40 MG Lorazepam 0.5 mg Q6HP PRN PO 05/08/24 13:30 05/12/24 20:48 0.5 MG Al Hydrox/Mg Hydrox/Simethicone 30 ml Q6HP PRN PO 05/08/24 13:30 05/11/24 00:50 30 ML Docusate Sodium 100 mg BIDPRN PRN PO 05/08/24 13:30 Acetaminophen 650 mg Q6HP PRN PO 05/08/24 13:30 05/14/24 05:31 650 MG Temazepam 15 mg QHSP PRN PO 05/08/24 13:30 Acetaminophen/ Hydrocodone Bitart 1 tab Q4HP PRN PO 05/08/24 13:30 Diagnostic Test (Pha) 1 strip IQ4HR 05/08/24 20:00 05/14/24 05:35 1 STRIP Insulin Human Regular IQ4HR SC 05/08/24 20:00 05/14/24 05:39 8 UNITS Dextrose 50 ml UD PRN IV 05/08/24 18:00 05/13/24 02:07 50 ML Ondansetron HCl 4 mg Q4HP PRN IV 05/08/24 19:45 05/13/24 04:07 4 MG Clonidine HCl 0.2 mg Q6HP PRN PO 05/09/24 00:25 05/09/24 12:21 0.2 MG Hydralazine HCl 100 mg Q8HR PO 05/09/24 14:00 05/14/24 05:31 100 MG Sevelamer HCl 800 mg TIDWM PO 05/09/24 18:00 05/12/24 17:19 800 MG Metoprolol Tartrate 50 mg BID PO 05/09/24 22:00 05/13/24 21:19 50 MG Calcium Acetate 667 mg TIDWMEALS PO 05/09/24 18:00 05/12/24 17:19 667 MG Furosemide 40 mg BIDD PO 05/09/24 18:00 05/14/24 05:31 40 MG Amlodipine Besylate 10 mg DAILY PO 05/11/24 10:00 05/12/24 09:05 10 MG Ondansetron HCl 4 mg TIDPRN PRN PO 05/11/24 14:45 Metoclopramide HCl 5 mg ACHS IV 05/12/24 14:30 05/14/24 05:39 5 MG Morphine Sulfate 2 mg Q2HP PRN IV 05/13/24 08:30 05/14/24 02:23 2 MG Oxycodone HCl 10 mg ONCE PRN PO 05/13/24 08:30 Dextrose 12.5 ml ONCE PRN IV 05/13/24 08:30 05/13/24 08:39 12.5 ML Peritoneal Dialysis Solution 1,000 ml @ 0 mls/hr Q6HR IP 05/14/24 12:00 UNV objective HEENT: No evidence of JVD, no oral ulcers. 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 Plan: Start low volume PD 1 L exchanges in view of hyperkalemia, uremia. Temporizing measures for hyperkalemia. Status post peritoneal dialysis placement May 13, 2024. Anderson for goal hemoglobin 10-11 g/dl Blood pressure control. I have discussed with Case management for outpatient dialysis placement in [facility]. No arrangements yet as of now. Thank you very much for allowing us to participate in the care of this patient please contact if you have any questions. Dietary Evaluation Review Comments: Continue current plan of care Expected Outcomes/Goals: F/U in 3-5 days Plan discussed with: Patient DARREN MARCUM MD May 14, 2024 08:19
[2024-05-14] MEDS ORDERED: HYDROcodone-ACET 10/325MG TAB PO PRN (08:45)
--- NOTE | 2024-05-14 08:46 | DVHPN2 ---
Progress Note Date Seen: May 14, 2024 Has the PT tested + for MRSA If YES, has PT been informed?: Yes Medical Necessity Reason Pt with a Central, PICC or Fol: No Subjective Review of Systems Pt admits to incisional pain. No other complaints. tolerating diet. Objective vital signs Vital Sign Date Time Temp Pulse Resp B/P (MAP) Pulse Ox O2 Delivery O2 Flow Rate FiO2 05/14/24 05:31 139/86 05/14/24 05:00 98.3 85 17 96 98.3 05/13/24 20:00 Room Air* 0 21 Total Intake and Output 05/13/24 05/13/24 05/14/24 15:00 23:00 07:00 Intake Total 110 ml 0 ml 400 ml Balance 110 ml 0 ml 400 ml medications Current Medications Medications Dose Ordered Sig/Kiran Route Start Time Stop Time Status Last Admin Dose Admin Atorvastatin Calcium 20 mg HS PO 05/08/24 22:00 05/13/24 21:19 20 MG Ergocalciferol 50,000 unit QWEEKLY PO 05/08/24 13:30 Insulin Glargine 20 units QPM SC 05/08/24 18:00 05/12/24 17:28 20 UNITS Pantoprazole Sodium 40 mg DAILY PO 05/09/24 10:00 05/12/24 08:53 40 MG Lorazepam 0.5 mg Q6HP PRN PO 05/08/24 13:30 05/12/24 20:48 0.5 MG Al Hydrox/Mg Hydrox/Simethicone 30 ml Q6HP PRN PO 05/08/24 13:30 05/11/24 00:50 30 ML Docusate Sodium 100 mg BIDPRN PRN PO 05/08/24 13:30 Acetaminophen 650 mg Q6HP PRN PO 05/08/24 13:30 05/14/24 05:31 650 MG Temazepam 15 mg QHSP PRN PO 05/08/24 13:30 Acetaminophen/ Hydrocodone Bitart 1 tab Q4HP PRN PO 05/08/24 13:30 Diagnostic Test (Pha) 1 strip IQ4HR 05/08/24 20:00 05/14/24 05:35 1 STRIP Insulin Human Regular IQ4HR SC 05/08/24 20:00 05/14/24 05:39 8 UNITS Ondansetron HCl 4 mg Q4HP PRN IV 05/08/24 19:45 05/13/24 04:07 4 MG Clonidine HCl 0.2 mg Q6HP PRN PO 05/09/24 00:25 05/09/24 12:21 0.2 MG Hydralazine HCl 100 mg Q8HR PO 05/09/24 14:00 05/14/24 05:31 100 MG Sevelamer HCl 800 mg TIDWM PO 05/09/24 18:00 05/12/24 17:19 800 MG Metoprolol Tartrate 50 mg BID PO 05/09/24 22:00 05/13/24 21:19 50 MG Calcium Acetate 667 mg TIDWMEALS PO 05/09/24 18:00 05/12/24 17:19 667 MG Furosemide 40 mg BIDD PO 05/09/24 18:00 05/14/24 05:31 40 MG Amlodipine Besylate 10 mg DAILY PO 05/11/24 10:00 05/12/24 09:05 10 MG Ondansetron HCl 4 mg TIDPRN PRN PO 05/11/24 14:45 Metoclopramide HCl 5 mg ACHS IV 05/12/24 14:30 05/14/24 05:39 5 MG Morphine Sulfate 2 mg Q2HP PRN IV 05/13/24 08:30 05/14/24 02:23 2 MG Oxycodone HCl 10 mg ONCE PRN PO 05/13/24 08:30 Dextrose 12.5 ml ONCE PRN IV 05/13/24 08:30 05/13/24 08:39 12.5 ML Peritoneal Dialysis Solution 1,000 ml @ 0 mls/hr Q6HR IP 05/14/24 12:00 Examination Sitting at the edge of the bed, about o eat breakfast. Abdominal exam deferred. laboratory and microbiology Laboratory Tests 05/14/24 06:57 Test 05/14/24 06:57 Range/Units Serum Glucose 336 #H 74-106 mg/dL Microbiology Date/Time Source Procedure Growth Status 05/09/24 12:00 Blood Blood Culture - Preliminary NO GROWTH AFTER 72 HOURS OF INCUBATION. Resulted Labs and/or images reviewed: Labs reviewed by me Problem List/Assessment/Plan Problems(with codes): (1) End stage renal disease Problem List/Assessment/Plan Pt may initiate low volume PD. D/W Dr. Hernandez. The patient was made aware he can/t shower for 6 weeks. Strict sponge/towel baths. Afterwards, d/w his automation operator. Resume recommended diet by automation operator. I advised pt to adopt a healthy lifestyle, particularly if/when becomes a renal transplant candidate. May be D/C from surgical standpoint. I will sign off and defer care to admitting physician and other consultants. Please call me if needed. Thank you for allowing me participate in the care f this patient. Plan discussed with: Patient, Other (Dr. Hernandez) My Orders My Orders Orders - KELLEY HUDSON MD Procedure Category Date Status Time Hydrocodone-Acet PHA 05/14/24 Verified 10/325mg Tab ([place] 08:45 Dietary Evaluation Review Comments: Continue current plan of care Expected Outcomes/Goals: F/U in 3-5 days KELLEY HUDSON MD May 14, 2024 08:46
[2024-05-14] MEDS: ALBUTEROL SULF 2.5 MG/0.5ML(0.5%) NEB SOLN NEB ONE (09:01)
[2024-05-14] MEDS: SODIUM ZIRCONIUM CYCL 10 GM PAK PO ONE (09:05)
[2024-05-14] MEDS: PERITONEAL DIALYSIS 2.5% IP SCH (12:00)
[2024-05-14] MEDS: InsuLIN REG 1unit/0.01ml Soln (100units/ml) IV ONE (12:02)
[2024-05-14] MEDS: DEXTROSE 50% SYRINGE 50 ML IV ONE (12:05)
[2024-05-14] MEDS: DEXTROSE (50%) 50ML SYRG IV ONE (12:12)
[2024-05-14 12:48] LABS: % Iron Saturation 19.9 % (20-55)
[2024-05-14] MEDS ORDERED: AML5T PO (13:47)
[2024-05-14] MEDS ORDERED: ATOR20TA50 PO (13:47)
[2024-05-14] MEDS ORDERED: MET50T PO (13:47)
[2024-05-14] MEDS ORDERED: GICOCKTAIL PO (13:47)
[2024-05-14] MEDS ORDERED: PANT40T PO (13:47)
[2024-05-14] MEDS ORDERED: FURO40TA4 PO (13:47)
[2024-05-14] MEDS: INSULIN LISPRO (HUMAN) 100 UNITS/ML ML SC ONE (14:15)
[2024-05-14] MEDS: INSULIN LISPRO (HUMAN) 100 UNITS/ML ML SC SCH (17:10)
[2024-05-14] MEDS ORDERED: DEXTROSE (50%) 50ML SYRG IV PRN (17:15)
--- NOTE | 2024-05-14 18:15 | DVHDSRES ---
Discharge Summary Date of Admission Resident Creating Document: ANIYA BRADY RESIDENT May 08, 2024 at 13:16 Date of Discharge: May 14, 2024 Admitting Diagnosis new onset ESRD Abdominal pain Labs/Diagnostic Data: Laboratory Results Test 05/14/24 17:42 05/14/24 16:23 05/14/24 06:57 05/12/24 05:38 POC Glucose 320 mg/dl (70-106) White Blood Count 14.9 10^3/uL (4.4-10.8) Red Blood Count 2.76 10^6/uL (4.5-5.90) Hemoglobin 8.3 g/dL (13.5-17.5) Hematocrit 24.8 % (41.0-53.0) Mean Corpuscular Volume 90.0 fL (80.0-100.0) Mean Corpuscular Hemoglobin 30.1 pg (28.0-32.0) Mean Corpuscular Hemoglobin Concent 33.5 g/dL (32.0-36.0) Red Cell Distribution Width 13.5 % (11.8-14.3) Platelet Count 316 10^3/uL (140-450) Mean Platelet Volume 8.9 fL (6.9-10.8) Neutrophils (%) (Auto) 84.4 % (37.0-80.0) Lymphocytes (%) (Auto) 8.5 % (10.0-50.0) Monocytes (%) (Auto) 7.0 % (0.0-12.0) Eosinophils (%) (Auto) 0.0 % (0.0-7.0) Basophils (%) (Auto) 0.1 % (0.0-2.0) Neutrophils # (Auto) 12.5 10 ^3/uL (1.6-8.6) Lymphocytes # (Auto) 1.3 10 ^3/uL (0.4-5.4) Monocytes # (Auto) 1.0 10 ^3/uL (0-1.3) Eosinophils # (Auto) 0 10 ^3/uL (0-0.8) Basophils # (Auto) 0 10 ^3/uL (0-0.2) Nucleated Red Blood Cells 0.0 % Sodium Level 126 mmol/L (136-145) Chloride Level 96 mmol/L (98-107) Carbon Dioxide Level 21 mmol/L (20-31) Anion Gap 9 (5-15) Blood Urea Nitrogen 55 mg/dL (9-23) Creatinine 10.53 mg/dL (0.700-1.30) Glomerular Filtration Rate Calc 6 mL/min (>90) BUN/Creatinine Ratio 5.2 (10.0-20.0) Serum Glucose 336 mg/dL (74-106) Calcium Level 8.5 mg/dL (8.7-10.4) Iron Level 48 ug/dL (65-175) Total Iron Binding Capacity 241 ug/dL (250-425) Percent Iron Saturation 19.9 % (20-55) Ferritin 205.9 ng/mL (22-322) Total Bilirubin < 0.2 mg/dL (0.2-1.0) Aspartate Amino Transferase (AST) 15 U/L (13-40) Alanine Aminotransferase (ALT) < 9 U/L (7-40) Alkaline Phosphatase 118 U/L (46-116) Total Protein 5.5 g/dL (5.7-8.2) Albumin 3.1 g/dL (3.2-4.8) Prothrombin Time 10.9 sec (9.3-11.8) Prothrombin Time INR 1.03 (0.9-1.15) Activated Partial Thromboplast Time 29.2 SEC (24.5-34.5) Test 05/10/24 13:30 05/10/24 06:00 05/09/24 12:00 05/09/24 09:27 Urine Opiates Screen Pos (NEGATIVE) Urine Fentanyl Screen Neg (NEGATIVE) Urine Barbiturates Screen Neg (NEGATIVE) Urine Phencyclidine Screen Neg (NEGATIVE) Urine Amphetamines Screen Neg (NEGATIVE) Urine Benzodiazepines Screen Neg (NEGATIVE) Urine Cocaine Screen Neg (NEGATIVE) Urine Cannabinoids Screen Neg (NEGATIVE) Hepatitis A Antibody Total Negative (Negative) Hepatitis B Surface Antigen Negative (Negative) Hepatitis B Surface Antibody Negative (Negative) Hepatitis B Core Total Antibody Negative (Negative) Hepatitis C Antibody Negative (Negative) Lactic Acid Level 1.2 mmol/L (0.4-2.0) Hemoglobin A1c 7.3 % A1C (<5.7) Serum Osmolality 304 mOsm/kg (278-298) Phosphorus Level 6.8 mg/dL (2.4-5.1) Lipase 30 U/L (12-53) Vitamin D 25-Hydroxy 30.4 ng/mL (30.0-100) Parathyroid Hormone (Intact) 353.4 pg/mL (18.4-80.1) Test 05/08/24 11:15 05/08/24 10:19 05/08/24 09:55 Urine Color Colorless (Yellow) Urine Clarity Clear (Clear) Urine pH 6.5 (5.0-9.0) Urine Specific [place] 1.011 (1.001-1.035) Urine Protein 3+ (Negative) Urine Ketones Negative (Negative) Urine Blood 1+ /uL (Negative) Urine Nitrite Negative (Negative) Urine Bilirubin Negative (Negative) Urine Urobilinogen Normal mg/dL (Negative) Urine Leukocyte Esterase Negative /uL (Negative) Urine RBC 3 /hpf (0 - 3) Urine WBC 1 /hpf (0 - 3) Urine Squamous Epithelial Cells None seen /hpf (<5) Urine Bacteria None seen /hpf (None Seen) Urine Glucose 2+ mg/dL (Normal) Blood Gas Specimen Type Arterial Blood Gas Sample Site Right radial Blood Gas Patient Temperature 37.0 Arterial Blood Date Drawn [id number] Arterial Blood pH 7.402 (7.350-7.450) Arterial Blood Partial Pressure CO2 31.4 mmHg (35.0-48.0) Arterial Blood Partial Pressure O2 95.3 mmHg (83.0-108.0) Arterial Blood HCO3 19.1 mmol/L (21.0-28.0) Arterial Blood Oxygen Saturation 97.0 % (94.0-98.0) Arterial Blood Base Excess -5.0 mmol/L (-2.0-3.0) Arterial Blood Oxyhemoglobin 96.0 % (94.0-98.0) Arterial Blood Carboxyhemoglobin 0.3 % (0.5-1.5) Arterial Blood Methemoglobin 0.7 % (0.0-1.5) Matt Test Yes Blood Gas Total Hemoglobin 8.30 g/dL (13.5-17.5) Blood Gas Modality Room air FiO2 % 21.0 Magnesium Level 1.9 mg/dL (1.6-2.6) Beta-Hydroxybutyric Acid 0.245 mmol/L (< 0.4) Other Laboratory Tests 05/14/24 06:57 Brief Hx & Hospital Course: Mr Mayank Watters, a 29-year-old male with a history of diabetes, stage 5 chronic kidney disease, and hypertension presented with abdominal pain, nausea, and vomiting for the past three days, with 4-5 episodes of vomiting daily, but no blood in the vomitus. His last vomiting episode was on 05/08/2024. He reported severe, generalized abdominal pain (8-10/10) but currently denies any pain. The patient, who has had similar symptoms leading to hospitalization two weeks ago, is a poor historian and unsure of his home medications, though he takes hydralazine. He lives with his fiance, is unemployed, occasionally uses marijuana, and denies tobacco or alcohol use. He is allergic to penicillin. At admission hyperkalemia and GFR 11ml/ min, nephrology decided to start dialysis and he agreed on peritoneal dialysis, catheter was placed on 05/13/24 and patient will start dialysis with [facility] as outpatient: today 05/14 he is receiving the dialysis fluid and tomorrow 05/15 the fluid will be drainage at [facility] facility Pt also had hb of 6.4 which required transfusion of 2 units Pt has DM type 1 hbac1 7.3 with subcutaneous monitor: he uses lantus 40ui and lispro sliding scale, he is following an shelter director, pt is advised to continue f/u The abdominal pain and emesis subsided, abdominal pain can be explained by gastroparesis. PSYCH: Good Judgment. AOx3. Normal memory, mood, and affect. HEENT -Head: normocephalic atraumatic, no facial trauma, neck is supple NECK: Supple, with no masses. CV: RRR, no m/r/g. LUNGS: respiratory effort normal, speaks in full sentences, no tripod position, no accessory muscle use. Lungs clear to auscultation without rhonchi, wheezes, rales ABD: Soft, catheter on place, no bleeding SKIN: Warm, well perfused. No skin rashes or abnormal lesions. MSK: No deformities or signs of scoliosis. Normal gait. EXT: No clubbing, cyanosis, or edema. NEURO: Ambulating with no limitations. Normal muscle strength and tone. No focal deficits Case discussed with Dr Sim Time spent on care 23 min Consults/Reason for consult nephrology: ESRD surgery: peritoneal dialysis catheter placement Operations or Procedures INTRAOPERATIVE FINDINGS: Fully patent pelvic cul-de-sac. No acute inflammatory changes. Normal appendix. Excellent functioning peritoneal dialysis catheter. ESTIMATED BLOOD LOSS: Minimal. INTRAVENOUS FLUIDS: Per anesthesia charting. URINE OUTPUT: Not recorded given the Adame catheter was not inserted. DRAINS: None. IMPLANTS: 62.5 cm swan neck double cuffed right-sided peritoneal dialysis catheter. COMPLICATIONS: None. DISPOSITION: Procedure well tolerated and transferred to recovery room in stable condition. INDICATIONS FOR PROCEDURE: The patient is an unfortunate 29-year-old male with history of diabetes, hypertension and CKD. His renal function has progressively deteriorated requiring dialysis. The patient had a lengthy discussion with the business analysis specialist with regard to his options, and he elected to proceed with peritoneal dialysis. The patient was evaluated and found to be a good candidate for peritoneal dialysis. I had a lengthy discussion with the patient and recommended laparoscopic placement of peritoneal dialysis catheter. The procedure, risks and benefits were explained in a detailed and extensive fashion. He was made aware of potential complications such as bleeding, infection, spontaneous bacterial peritonitis, injury to internal organs, blood vessels and/or nerves, catheter dislodgement requiring additional procedures, among other complications. All questions were answered. He understood and agreed to proceed. DESCRIPTION OF PROCEDURE: The patient was taken to the operating room. He was placed in the dorsal decubitus position on the operating room table. Once adequate anesthesia was achieved, the arms were placed, the left side was tucked to his side, paying careful attention on providing adequate positioning as well as padding to prevent any potential injuries. The abdomen was then widely prepped and draped in the usual sterile fashion. The patient received prophylactic heparin as well as prophylactic antibiotics. My attention was directed towards the periumbilical region where local anesthesia consisting of 1% lidocaine, 0.5% Marcaine was infiltrated. The abdominal wall was retracted anteriorly and a Veress needle was inserted into the abdominal cavity via the base of the umbilicus. Pneumoperitoneum of 15 mmHg was achieved. My attention was directed towards the left upper quadrant region where a 5 mm trocar was placed. A 5-mm 30-degree laparoscope was inserted into the abdominal cavity. A thorough survey of the abdominal cavity did not reveal any evidence of injury or bleeding upon entry. The Veress needle was removed from the abdominal cavity under direct laparoscopic visualization. My attention was then directed to the left lower quadrant region where a 5 mm trocar was placed. In the right infraumbilical paramedian region, an 8 mm trocar was placed. All trocars were placed with preemptive local anesthesia as well as under direct laparoscopic visualization. A right-sided swan neck 62.5 cm double cuffed peritoneal dialysis catheter was advanced into the pelvic cul-de-sac over the stylet leaving the catheter in the pelvic cul-de-sac. I ensured that the distal cuff was within the abdominal wall. The patient was returned to the neutral position as he was placed in the Trendelenburg position for placement of the catheter. The pneumoperitoneum was evacuated. The catheter was tunneled laterally and inferiorly following the pre-shape curve of the catheter externalizing the catheter approximately 2-3 cm from the proximal cuff. The catheter was connected to a sterile cystoscopy line, which was in turn connected to a 1 liter bag of sterile saline solution. The pneumoperitoneum had been evacuated. The fluid was allowed to instill upon gravity. There was no obstructive flow. The entire 1 liter bag was infused. The bag was then placed on the floor obtaining approximately 800 mL of clear fluid. At this time, the catheter was found to be in adequate position as well as functioning well. The laparoscopic equipment was removed from the patient. The wound was washed and dried. The skin was closed with 4-0 Monocryl in a subcuticular fashion. Sterile dressings were applied. The catheter was assembled to the exchange tubing and it was flushed with 5000 heparinized solution. The catheter was covered with the dressing, leaving the exchange connector out just in case the patient required to initiate acute peritoneal dialysis. The patient tolerated the procedure well. There were no complications. He was successfully extubated in the operating room and transferred to recovery room in stable condition. 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 Gastroparesis Discharge Disposition: Home Discharge Instruct/Medications Diet: Renal Activity: Light activity Follow Up/Referral: f/u with Ramesh johnson for peritoneal dialysis Medications: review meds reconcilation Discharge Statement: "Patient was advised to return to the ER or call 911 if any headaches, dizziness, shortness of breath, chest pain, abdominal pain, bleeding, fevers, or worsening of medical condition. Patient was counseled about treatment plan, medications, possible side effects, patientverbalized understanding. All questions were answered to the best of my ability. This discharge took greater then 30 minutes in planning, reviewing documentation, counseling the patient, and discussing with other team members." ASSESSMENT ASSESSMENT Assessment s/p peritoneal dialysis cath placement ESRD DM type 1 Date of Service: May 14, 2024 Billing Provider: ANGIE SIM MD Common Visit Codes: [id number] INP/OBS CARE(HIGH) Coding Comment Comment Attending Attestation I saw and evaluated the patient. I reviewed the residents note and agree with findings and plan as documented in the residents note except as documented below. ANIYA BRADY RESIDENT May 14, 2024 18:15 ANGIE SIM MD May 14, 2024 21:20
[2024-05-14] MEDS: ACCU-CHEK COMFORT CURVE STRIP VI SCH (21:19)
[2024-05-14] MEDS: InsuLIN REG 1unit/0.01ml Soln (100units/ml) SC SCH (21:23)
[2024-05-14] MEDS: INSULIN LANTUS (GLARGINE) 1 /0.01ml (100units/ml) SC SCH (21:34)
[2024-05-15] MEDS ORDERED: InsuLIN REG 1unit/0.01ml Soln (100units/ml) SC SCH (07:00)
--- NOTE | 2024-05-24 09:57 | ECG ---
[facility] Test Date: 2024-05-13 Test Time: 12:17:34 Pat Name: JODI CHEW Department: Respiratoy Room: 0222T A Gender: M Hearing Specialist: LEELEE : 1995 Requested By: ANGIE OTTO Order Number: [id number] Reading MD: Genaro Youngblood Measurements Intervals [place] Rate: 89 P: 64 NV: 136 QRS: 49 QRSD: 96 T: 67 QT: 371 QTc: 452 Interpretive Statements Sinus rhythm Left atrial enlargement ST elev, probable normal early repol pattern Electronically Signed On 05-25-2024 9:08:07 PST by Genaro Youngblood Please click the below link to view image of tracing.
--- NOTE | 2024-05-24 10:00 | ECG ---
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
--- NOTE | 2024-05-24 10:00 | ECG ---
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
== END 2024-05-14 22:50 | disposition home or self-care (01) | DRG 951 ==
LOC: ER 09:22 → MERGE 13:16 → TELE 13:16 → CENTRAL 05-09 21:38 → TELE-CENTR 05-10 02:46
PROVIDERS: ADMIT Student in an Organized Health Care Education/Training Program; ATTEND Student in an Organized Health Care Education/Training Program
PROC: 30233N1 Transfusion of Nonautologous Red Blood Cells into Peripheral Vein, Percutaneous Approach (ICD-10-PCS; principal; 2024-05-10)
PROC: 0WHG43Z Insertion of Infusion Device into Peritoneal Cavity, Percutaneous Endoscopic Approach (ICD-10-PCS; 2024-05-13)
PROC: 3E1M39Z Irrigation of Peritoneal Cavity using Dialysate, Percutaneous Approach (ICD-10-PCS; 2024-05-14)
DX: E10.43 Type 1 diabetes mellitus with diabetic autonomic (poly)neuropathy (principal); N25.81 Secondary hyperparathyroidism of renal origin; N17.9 Acute kidney failure, unspecified; D63.1 Anemia in chronic kidney disease; I12.0 Hypertensive chronic kidney disease with stage 5 chronic kidney disease or end stage renal disease; E83.39 Other disorders of phosphorus metabolism; N18.6 End stage renal disease; E10.22 Type 1 diabetes mellitus with diabetic chronic kidney disease; K31.84 Gastroparesis; E86.0 Dehydration; E10.65 Type 1 diabetes mellitus with hyperglycemia; I16.0 Hypertensive urgency; E87.5 Hyperkalemia; Z88.0 Allergy status to penicillin; Z79.4 Long term (current) use of insulin
CPT/HCPCS: 36415; 71045; 80048; 80053; 80307; 81001; 82010; 82306; 82728; 82962; 83036; 83540; 83550; 83605; 83690; 83735; 83930; 83970; 84100; 84132; 85018; 85025; 85610; 85730; 86704; 86706; 86708; 86803; 86850; 86900; 86901; 86920; 87040; 87340; 93005; 94640; 96361; 96374; 96375; 99291; G0378; J0131; J0690; J1100; J1756; J1815; J2003; J2405; J2704; J3490; Q0162

== ENCOUNTER 2024-12-23 18:06 | Inpatient (IN) | payer MEDICAID ==
[~2024-12-23] VITALS: Ht 170.2 cm; Wt 72.0 kg
[~2024-12-23 18:06] MED LIST changes: +AML5T PO; +FURO40TA4 PO; +GICOCKTAIL PO; -LISI40TA16 PO; +MET50T PO; -METO1TAB9 PO; -ZOFR4T PO
--- NOTE | 2024-12-23 18:59 | ED.PDOC ---
General HPI Comments 29 year old male presents to the ED with a chief complaint of testicle swelling onset 3 days. Patient states he has been experiencing testicular swelling with pain for the past 3 days, was seen at [facility], was admitted for 2 days, left AMA yesterday. He noticed testicular swelling and pain worsen today, is also experiencing shortness of breath, nausea, vomiting, came to ED. Patient currently has peritoneal catheter in place for peritoneal dialysis. BP upon ED arrival was 196/121. PMHx HTN, DM, HLD. Denies chest pain, dysuria, diarrhea, abdominal pain, dizziness. No other symptoms or modifying factors present at this time. Time Seen by MD: 18:50 Primary Care Provider: JOSELITO Reviewed notes: Medications, Allergies Allergies: Coded Allergies: Amoxicillin (Verified Allergy, Unknown, 05/09/14) Clavulanic Acid (Verified Allergy, Unknown, 05/09/14) Penicillins (Verified Allergy, Unknown, 01/20/15) Home Meds Active Scripts Alum & Mag Hydrox-Simethicone (Gi Cocktail) 55 Ml Ss, 30 ML PO Q6HP PRN for 30 Days, #120 ML Prov:JEREMY POPE [facility] 05/14/24 Pantoprazole Sodium Sesquihydr (Pantoprazole Sodium) 40 Mg Tab, 40 MG PO DAILY for 30 Days, #30 TAB Prov:JEREMY POPE [facility] 05/14/24 Metoprolol Tartrate (LOPRESSOR TABLET) 50 Mg Tb, 50 MG PO BID for 30 Days, #60 TAB Prov:JEREMY POPE [facility] 05/14/24 Furosemide (Furosemide) 40 Mg Tab, 40 MG PO BIDD for 30 Days, #60 TAB Prov:JEREMY POPE [facility] 05/14/24 Atorvastatin Calcium (ATORVASTATIN CALCIUM) 20 Mg Tab, 20 MG PO HS for 30 Days, #30 TAB Prov:JEREMY POPE [facility] 05/14/24 Amlodipine Besylate (NORVASC TABLET) 5 Mg Tb, 10 MG PO DAILY for 30 Days, #60 TAB Prov:JEREMY POPE [facility] 05/14/24 Sucralfate (CARAFATE SUSP) 1 Gm/10 Ml Ss, 1 GM GT QID@0600,1130,1700,2200 for 30 Days, #200 ML Prov:JEREMY POPE 03/06/24 Sodium Bicarbonate (Sodium Bicarbonate) 650 Mg Tab, 650 MG PO BID for 30 Days, #60 TAB Prov:[facility] 03/06/24 Rifaximin (Xifaxan) 550 Mg Tab, 400 MG PO TID for 30 Days, #66 TAB Prov:[facility] 03/06/24 Pantoprazole Sodium Sesquihydr (Pantoprazole Sodium) 40 Mg Tab, 40 MG PO DAILY for 30 Days, #30 TAB Prov:[facility] 03/06/24 Nystatin (Mouth-Throat) (Mycostatin (Mouth-Throat)) 500,000 Units/5 Ml Ss, 5 ML MT QID for 30 Days, #30 ML Prov:[facility] 03/06/24 Nifedipine (Nifedipine Er) 30 Mg Tab, 90 MG PO DAILY for 30 Days, #90 TAB Prov:[facility] 03/06/24 Insulin Glargine (Lantus) 100 Unit/Ml Inj, 20 UNITS SC DAILY for 30 Days, #10 INJ Prov:[facility] 03/06/24 Hydralazine HCl (Hydralazine HCl) 25 Mg Tab, 50 MG PO Q8HR for 30 Days, #180 TAB Prov:[facility] 03/06/24 Gabapentin (Gabapentin) 100 Mg Cap, 100 MG PO TID for 30 Days, #90 CAP Prov:[facility] 03/06/24 Carvedilol (COREG) 3.125 Mg Tab, 6.25 MG PO Q12HR for 30 Days, #120 TAB Prov:[facility] 03/06/24 Atorvastatin Calcium (ATORVASTATIN CALCIUM) 20 Mg Tab, 20 MG PO HS for 30 Days, #30 TAB Prov:[facility] 03/06/24 Acetaminophen (Acetaminophen) 325 Mg Tab, 650 MG PO Q6HPRN PRN for 10 Days, #80 TAB Prov:[facility] 03/06/24 Reported Medications Insulin Lispro (Human) (Humalog) 100 Unit/Ml Inj, 100 UNIT SC, INJ 05/09/24 Furosemide (Furosemide) 20 Mg Tab, 20 MG PO BID PRN 04/16/24 Hydralazine Hcl (Hydralazine Hcl) 100 Mg Tab, 100 MG PO TID 04/16/24 Ergocalciferol (Vitamin D) 50,000 Unit Cap, 1 CAP PO QWEEKLY 12/27/23 Carvedilol (Carvedilol) 6.25 Mg Tab, 1 TAB PO BID 12/27/23 Insulin Lispro (Insulin Lispro) 100 Unit/Ml Inj, SC 06/06/23 Insulin Glargine (Lantus) 100 Unit/Ml Inj, SC 06/06/23 Hydralazine Hcl (Hydralazine Hcl) 50 Mg Tab, 1 TAB PO QID 06/06/23 Continuous Blood Glucose Syste (Dexcom G6 Transmitter) 1 Mis Mis, UD 06/06/23 Continuous Blood Glucose Syste (Dexcom G6 Sensor) 1 Mis Mis, UD 06/06/23 Insulin Lispro (Human) (Humalog) 100 Unit/Ml Inj, 0 SC AC VIA SLIDING SCALE 07/26/20 Information Source: Patient, Relative Mode of Arrival: Wheelchair Severity: Moderate Timing: Days Duration: Since onset Prehospital treatment: None Onset: Spontaneous Symptoms: Other History of: Other (peritoneal catheter) Past Medical History PAST MEDICAL HISTORY: DM, High Lipids, HTN Surgical History: Denies all surgeries Family History Family History: Reviewed,noncontributory to illness Social History Smoker: Cigarettes, Less Than 1 Pack/Day Alcohol: Occasionally Drugs: Marijuana Lives In: Home Constitutional: denies: chills, diaphoresis, fatigue, fever, malaise, sweats, weakness, others EENTM: denies: blurred vision, double vision, ear bleeding, ear discharge, ear drainage, ear pain, ear ringing, eye pain, eye redness, hearing loss, mouth pain, mouth swelling, nasal discharge, nose bleeding, nose congestion, nose pain, photophobia, tearing, throat pain, throat swelling, voice changes, others Respiratory: denies: cough, hemoptysis, orthopnea, SOB at rest, shortness of breath, SOB with excertion, stridor, wheezing, others Cardiovascular: denies: chest pain, dizzy spells, diaphoresis, Dyspnea on exertion, edema, irregular heart beat, left arm pain, lightheadedness, palpitations, PND, syncope, others Gastrointestinal: denies: abdomen distended, abdominal pain, blood streaked bowels, constipated, diarrhea, dysphagia, difficulty swallowing, hematemesis, melena, nausea, poor appetite, poor fluid intake, rectal bleeding, rectal pain, vomiting, others Genitourinary: reports: testicle pain, testicle swelling; denies: burning, dysuria, flank pain, frequency, hematuria, incontinence, penile discharge, penile sore, pain, urgency, others Neurological: denies: dizziness, fainting, headache, left sided numbness, left sided weakness, numbness, paresthesia, pre-existing deficit, right sided numbness, right sided weakness, seizure, speech problems, tingling, tremors, weakness, others Musculoskeletal: denies: back pain, gout, joint pain, joint swelling, muscle pain, muscle stiffness, neck pain, others Integumetry: denies: bruises, change in color, change in hair/nails, dryness, laceration, lesions, lumps, rash, wounds, others Allergic/Immunocompromised: denies: Difficulty Healing, Frequent Infections, Hives, Itching, others Hematologic/Lymphatic: denies: anemia, blood clots, easy bleeding, easy bru ising, swollen glands, others Endocrine: denies: excessive hunger, excessive sweating, excessive thirst, e xcessive urination, flushing, intolerance to cold, intolerance to heat, unexplained weight gain, unexplained weight loss, others Psychiatric: denies: anxiety, bipolar disorder, depression, hopeless, panic disorder, schizophrenia, sleepless, suicidal, others All Other Systems: Reviewed and Negative Physical Exam General Appearance: Moderate Distress, Normal, Other (appears uncomfortable) HEENT: Normal ENT Inspection, Pharynx Normal, TMs Normal Neck: Full Range of Motion, Non-Tender, Normal, Normal Inspection Respiratory: Chest Non-Tender, Lungs Clear, No Accessory Muscle Use, No Respiratory Distress, Normal Breath Sounds Cardiovascular: No Edema, No JVD, No Murmur, No Gallop, Normal Peripheral Pulses, Regular Rate/Rhythm Breast Exam: Deferred Gastrointestinal: No Organomegaly, Normal Bowel Sounds, Other (peritoneal dialysis catheter ) Genitalia: Deferred Pelvic: Deferred Rectal: Deferred Extremities: No calf tenderness, Normal capillary refill, Normal inspection, Normal range of motion, Non-tender, No pedal edema Musculoskeletal : Apperance: Normal 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 Was a procedure done?: No Differential Diagnosis Kidney stone (Female): N/A Kidney stone (Male): N/A Penile/Scrotal: Hydrocele Urinary Problem (Male): N/A Urinary Problem (Female): N/A X-Ray, Labs, Meds, VS Vital Signs Date Time Temp Pulse Resp B/P (MAP) Pulse Ox O2 Delivery O2 Flow Rate FiO2 12/23/24 20:10 97 18 203/124 (150) 97 12/23/24 20:10 203/124 12/23/24 19:49 97 14 203/124 12/23/24 19:30 Room Air* 0 21 12/23/24 19:21 192/125 12/23/24 19:19 97 18 192/125 12/23/24 19:18 97 12/23/24 19:15 98.6 18 192/125 (147) 97 98.6 12/23/24 19:01 98.8 100 18 196/121 (146) 99 98.8 Lab Test 12/23/24 20:06 12/23/24 19:24 Range/Units Troponin I High Sensitivity 58 *H 60 *H </=54 ng/L White Blood Count 8.0 4.4-10.8 10^3/uL Red Blood Count 3.48 L 4.5-5.90 10^6/uL Hemoglobin 10.5 L 13.5-17.5 g/dL Hematocrit 32.6 L 41.0-53.0 % Mean Corpuscular Volume 93.6 80.0-100.0 fL Mean Corpuscular Hemoglobin 30.1 28.0-32.0 pg Mean Corpuscular Hemoglobin Concent 32.1 32.0-36.0 g/dL Red Cell Distribution Width 15.1 H 11.8-14.3 % Platelet Count 227 140-450 10^3/uL Mean Platelet Volume 8.9 6.9-10.8 fL Neutrophils (%) (Auto) 66.2 37.0-80.0 % Lymphocytes (%) (Auto) 16.5 10.0-50.0 % Monocytes (%) (Auto) 10.9 0.0-12.0 % Eosinophils (%) (Auto) 5.3 0.0-7.0 % Basophils (%) (Auto) 1.1 0.0-2.0 % Neutrophils # (Auto) 5.3 1.6-8.6 10 ^3/uL Lymphocytes # (Auto) 1.3 0.4-5.4 10 ^3/uL Monocytes # (Auto) 0.9 0-1.3 10 ^3/uL Eosinophils # (Auto) 0.4 0-0.8 10 ^3/uL Basophils # (Auto) 0.1 0-0.2 10 ^3/uL Nucleated Red Blood Cells 0.0 % Sodium Level 132 L 136-145 mmol/L Potassium Level 5.3 H 3.5-5.1 mmol/L Chloride Level 97 L 98-107 mmol/L Carbon Dioxide Level 21 20-31 mmol/L Anion Gap 14 5-15 Blood Urea Nitrogen 82 *H 9-23 mg/dL Creatinine 15.14 *H 0.700-1.30 mg/dL Glomerular Filtration Rate Calc 4 >90 mL/min BUN/Creatinine Ratio 5.4 L 10.0-20.0 Serum Glucose 433 *H 74-106 mg/dL Calcium Level 7.3 L 8.7-10.4 mg/dL Phosphorus Level 9.1 H 2.4-5.1 mg/dL Magnesium Level 2.4 1.6-2.6 mg/dL B-Type Natriuretic Peptide 2160.90 0-100 pg/mL Current Medications Medications (Trade) Dose Ordered Sig/Kiran Route Start Time Stop Time Status Last Admin Hydralazine HCl (Apresoline Injection) 20 mg ONCE ONCE IV 12/23/24 19:00 12/23/24 19:01 DC 12/23/24 19:21 Clonidine HCl (Catapres Tablet) 0.2 mg ONCE ONCE PO 12/23/24 19:00 12/23/24 19:01 PA 12/23/24 20:10 Ondansetron HCl (Zofran) 4 mg ONCE ONCE IV 12/23/24 19:00 12/23/24 19:01 PA 12/23/24 19:19 Hydromorphone HCl (Dilaudid Injection) 0.5 mg ONCE ONCE IV 12/23/24 19:00 12/23/24 19:01 DC 12/23/24 19:19 Insulin Human Regular (InsuLIN R) 10 units ONCE ONCE IV 12/23/24 20:15 12/23/24 20:16 DC 12/23/24 20:[address] [address] Ph: [phone] DIAGNOSTIC IMAGING Diagnostic Imaging Report : [id number] Signed PATIENT: CATHLEEN KRAUSCCT: [id number] UNIT: [id number] : 1995 LOC: ER ROOM / BED: / AGE / SEX: 29 / M ADM STATUS: REG ER SERVICE 51 ORDERING PHYSICIAN: LOKESH CABRERA MD PROCEDURE(s): CXRP - CHEST PORTABLE REASON: SOB ORDER NUMBER(s): [id number], ACCESSION NUMBER(s): [id number] EXAM: XY CHEST PORTABLE HISTORY: SOB TECHNIQUE: 1 view of the chest COMPARISON: XY CHEST PORTABLE on DOS: 02/04/23 FINDINGS/IMPRESSION: LUNGS: No pleural effusion, consolidation, or pneumothorax MEDIASTINUM: Unremarkable BONES: No acute osseous abnormality OTHER: None ATED BY: GALLITO LAWRENCE MD DICTATED DATE/TIME: 12/23/241928 SIGNED BY: GALLITO LAWRENCE MD SIGNED DATE/TIME: 12/23/241928 CC: Time of 1ST Reevaluation: 19:20 Reevaluation 1ST: Unchanged Patient Education/Counseling: Diagnosis, Treatment, Prognosis Family Education/Counseling: Diagnosis, Treatment, Prognosis SEPSIS Sepsis Screen Physician Orders Chest Portable (12/23/24 18:52) Electrocardigram (12/23/24 19:04) Vital Signs Date Time Temp Pulse Resp B/P (MAP) Pulse Ox O2 Delivery O2 Flow Rate FiO2 12/23/24 20:10 97 18 203/124 (150) 97 12/23/24 20:10 203/124 12/23/24 19:49 97 14 203/124 12/23/24 19:30 Room Air* 0 21 12/23/24 19:21 192/125 12/23/24 19:19 97 18 192/125 12/23/24 19:18 97 12/23/24 19:15 98.6 18 192/125 (147) 97 98.6 12/23/24 19:01 98.8 100 18 196/121 (146) 99 98.8 Laboratory Tests Test 12/23/24 19:24 White Blood Count 8.0 10^3/uL (4.4-10.8) Medications Medications Dose Ordered Sig/Kiran Route Start Time Stop Time Status Last Admin Dose Admin Clonidine HCl 0.2 mg ONCE ONCE PO 12/23/24 19:00 12/23/24 19:01 DC 12/23/24 20:10 Hydralazine HCl 20 mg ONCE ONCE IV 12/23/24 19:00 12/23/24 19:01 DC 12/23/24 19:21 Hydromorphone HCl 0.5 mg ONCE ONCE IV 12/23/24 19:00 12/23/24 19:01 DC 12/23/24 19:19 Insulin Human Regular 10 units ONCE ONCE IV 12/23/24 20:15 12/23/24 20:16 DC 12/23/24 20:15 Ondansetron HCl 4 mg ONCE ONCE IV 12/23/24 19:00 12/23/24 19:01 DC 12/23/24 19:19 Departure 1 Departure Time of Disposition: 01:23 (Patient likely with volume overloaded and needing peritoneal dialysis. We will admit patient for further workup and expert consultation) Impression: Primary Impression: Volume overload Qualified Codes: E87.70 - Fluid overload, unspecified Additional Impressions: Scrotal swelling Shortness of breath Disposition: ADMITTED INPATIENT Admit to: Med Surg Condition: Serious Critical Care Note Critical Care Time?: Yes Critical care comment: Shortness of breath Authorized and Performed by: Lokesh Cabrera MD Total critical care time: Approximately 36 minutes Due to a high probability of clinically significant, life threatening deterioration, the patient required my highest level of preparedness to intervene emergently and I personally spent this critical care time directly and personally managing the patient. This critical care time included obtaining a history; examining the patient; pulse oximetry; ordering and review of studies; arranging urgent treatment with development of a management plan; evaluation of patient's response to treatment; frequent reassessment; and, discussions with other providers. This critical care time was performed to assess and manage the high probability of imminent, life-threatening deterioration that could result in multi-organ failure. It was exclusive of separately billable procedures and treating other patients and teaching time. Please see my other sections and the rest of the note for further information on patient assessment and treatment. Stability Stability form required: No I personally scribed for LOKESH CABRERA MD ([email or web address]) on 12/23/24 at 18:59. Electronically submitted by Clover Coleman ([email or web address]). I personally scribed for LOKESH CABRERA MD ([email or web address]) on 12/23/24 at 19:53. Electronically submitted by Clover Coleman ([email or web address]). LOKESH CABRERA MD Dec 23, 2024 18:59
[2024-12-23] MEDS: ONDANSETRON HCL 4 MG/2 ML VIAL IV ONE (19:19)
[2024-12-23] MEDS: HYDROmorphone HCL 2 MG/ML VL/or syr IV ONE (19:19)
[2024-12-23] MEDS: hydrALAZINE HCL 20 MG/ML VL IV ONE (19:21)
--- NOTE | 2024-12-23 19:31 | DVH ---
EXAM: XY CHEST PORTABLE HISTORY: SOB TECHNIQUE: 1 view of the chest COMPARISON: XY CHEST PORTABLE on DOS: 02/04/23 FINDINGS/IMPRESSION: LUNGS: No pleural effusion, consolidation, or pneumothorax MEDIASTINUM: Unremarkable BONES: No acute osseous abnormality OTHER: None
[2024-12-23 19:34] LABS: Hematocrit 32.6 % (41.0-53.0); Hemoglobin 10.5 g/dL (13.5-17.5); Mean Corpuscular Hemoglobin 30.1 pg (28.0-32.0); Mean Corpuscular Volume 93.6 fL (80.0-100.0); Nucleated Red Blood Cells % 0.0 %
[2024-12-23 19:47] LABS: Anion Gap 14 (5-15); Carbon Dioxide 21 mmol/L (20-31)
[2024-12-23 19:49] LABS: Calcium 7.3 mg/dL (8.7-10.4); Chloride 97 mmol/L (98-107); Potassium 5.3 mmol/L (3.5-5.1); Sodium 132 mmol/L (136-145)
[2024-12-23 19:52] LABS: BUN/Creatinine Ratio 5.4 (10.0-20.0)
[2024-12-23 19:53] LABS: Magnesium 2.4 mg/dL (1.6-2.6)
[2024-12-23 20:01] LABS: Blood Urea Nitrogen 82 mg/dL (9-23)
[2024-12-23] MEDS: InsuLIN REG 1unit/0.01ml Soln (100units/ml) IV ONE (20:15)
[2024-12-23 20:24] LABS: Glucose 433 mg/dL (74-106)
[2024-12-23] MEDS ORDERED: METOPROLOL TARTRATE 50 MG TAB PO SCH (22:00)
[2024-12-23] MEDS ORDERED: hydrALAZINE HCL 20 MG/ML VL IV ONE (22:00)
[2024-12-23] MEDS ORDERED: MORPHINE SULFATE INJ 2 MG/ml SYRG IV PRN (22:00)
[2024-12-23] MEDS ORDERED: NITROGLYCERIN 0.4 MG SL TAB SL PRN (22:00)
--- NOTE | 2024-12-23 22:12 | DVHHP2 ---
History of Present Illness Reason for Visit: Intractable nausea and vomiting History of Present Illness Patient is 29-year-old male with past medical history of type 1 diabetes mellitus on insulin, hypertension, anemia of chronic disease, ESRD on peritoneal dialysis, hyperphosphatemia, vitamin-D deficiency, gastroparesis who presented to hospital with a chief complaint of intractable nausea and vomiting for past 3-4 days, vomiting at least three to 4 times a day, mainly watery vomitus, no blood associated with generalized fatigue and pain all over the body, patient also complaining of testicular swelling onset 3-4 days ago, as per patient he was hospitalized at [facility] however he left AMA few days ago, continued to have worsening symptoms including nausea vomiting, shortness of breath, generalized fatigue and pain all over the body. Patient denied any other symptoms including chest pain, fever, chills, motor or sensory deficits. Past medical history: type 1 diabetes mellitus on insulin, hypertension, anemia of chronic disease, ESRD on peritoneal dialysis, hyperphosphatemia, vitamin-D deficiency, gastroparesis Past surgical history: Peritoneal dialysis insertion Personal history: Smokes marijuana, denying any other drug use Family history: Lives with family Allergy: Penicillin family : Amoxicillin clavulanic acid and penicillin Home medication: Acetaminophen 650 mg p.o. q.6 p.r.n., amlodipine 5 mg p.o. daily, atorvastatin 20 mg p.o. daily, Coreg 6.25 mg p.o. b.i.d., vitamin-D 31882 IU one cap p.o. once weekly, furosemide 20 mg p.o. b.i.d., gabapentin 100 mg p.o. t.i.d., hydralazine 50 mg q.i.d., insulin Lantus 40 units once daily, insulin sliding scale lispro, metoprolol 50 mg p.o. b.i.d. Protonix 40 mg p.o. daily, sodium bicarbonate 650 mg p.o. b.i.d., sucralfate 1 gm q.i.d. Review of Systems Constitutional: No: Fever, Chills, Sweats, Weakness, Malaise, Other Eyes: No: Pain, Vision change, Conjunctivae inflammation, Eyelid inflammation, Other, Redness ENT: No: Ear pain, Ear discharge, Nose pain, Nose discharge, Nose congestion, Mouth pain, Mouth swelling, Throat pain, Throat swelling, Other Respiratory: Shortness of breath Cardiovascular: No: Chest Pain, Palpitations, Orthopnea, Paroxysmal Noc. Dyspnea, Edema, Lt Headedness, Other Gastrointestinal: Nausea, Vomiting, Abdominal Pain Genitourinary: No Dysuria, No Frequency, No Incontinence, No Hematuria, No Retention; Other (Scrotal swelling) Musculoskeletal: No: other, neck pain, shoulder pain, arm pain, back pain, hand pain, leg pain, foot pain Skin: No: Rash, Lesions, Jaundice, Bruising, Other Neurological: No: Weakness, Numbness, Incoordination, Change in speech, Confusion, Seizures, Other Allergies: Coded Allergies: Amoxicillin (Verified Allergy, Unknown, 05/09/14) Clavulanic Acid (Verified Allergy, Unknown, 05/09/14) Penicillins (Verified Allergy, Unknown, 01/20/15) Medications Current Medications Medications Dose Ordered Sig/Kiran Route Start Time Stop Time Status Last Admin Dose Admin Nitroglycerin 0.4 mg Q5MINP PRN SL 12/23/24 22:00 Morphine Sulfate 2 mg Q30M PRN IV 12/23/24 22:00 Sodium Bicarbonate 650 mg TID PO 12/23/24 22:00 Atorvastatin Calcium 20 mg HS PO 12/23/24 22:00 Carvedilol 6.25 mg Q12HR PO 12/23/24 22:00 Hydralazine HCl 50 mg Q8HR PO 12/23/24 22:00 Metoprolol Tartrate 50 mg BID PO 12/23/24 22:00 Nifedipine 90 mg DAILY PO 12/24/24 10:00 Pantoprazole Sodium 40 mg DAILY PO 12/24/24 10:00 Diagnostic Test (Pha) 1 strip Q6HR 12/24/24 00:00 Insulin Human Regular Q6HR SC 12/24/24 00:00 Dextrose 50 ml UD PRN IV 12/23/24 22:00 Insulin Glargine 40 units HS SC 12/24/24 22:00 Sevelamer HCl 800 mg TIDWM PO 12/24/24 08:00 Exam Vital Signs Vital Signs Date Time Temp Pulse Resp B/P (MAP) Pulse Ox O2 Delivery O2 Flow Rate FiO2 12/23/24 20:10 97 18 203/124 (150) 97 12/23/24 19:30 Room Air* 0 21 12/23/24 19:15 98.6 98.6 Exam General Appearance: Cooperative. Well developed. Well nourished. NAD Head Exam: Normal inspection Neck Exam: Normal inspection. Non-tender. Normal alignment Pulmonary/Respiratory: Chest non-tender. Clear bilateral breath sounds Cardiovascular/Chest: Regular rate and rhythm. No murmurs. No JVD. Peripheral Pulses: 2+ Radial (R). 2+ Radial (L). 2+ Pedal (R). 2+ Pedal (L) Abdominal Exam: Normal bowel sounds. Soft. Mild tenderness over all quadrant, no rigidity or guarding. Presence of bowel sounds No hepatospenomegaly. No masses Ankle Exam: Negative ankle edema Lower extremities: Negative lower extremity edema Neuro/Mental Status: A&O x4. Coherent Thoughts/Psych: Normal thought pattern. Appropriate mood and affect. Good judgement and insight Appearance: In no acute distress Skin Exam: Normal inspection. Normal color. Warm. Dry Patient denied pelvic examination given: Not able to examined pelvic area given patient was sitting in chair in outside hallway, however patient complaining of soreness swelling Labs/Xrays Labs Test 12/23/24 20:06 12/23/24 19:24 Range/Units Troponin I High Sensitivity 58 *H </=54 ng/L White Blood Count 8.0 4.4-10.8 10^3/uL Red Blood Count 3.48 L 4.5-5.90 10^6/uL Hemoglobin 10.5 L 13.5-17.5 g/dL Hematocrit 32.6 L 41.0-53.0 % Mean Corpuscular Volume 93.6 80.0-100.0 fL Mean Corpuscular Hemoglobin 30.1 28.0-32.0 pg Mean Corpuscular Hemoglobin Concent 32.1 32.0-36.0 g/dL Red Cell Distribution Width 15.1 H 11.8-14.3 % Platelet Count 227 140-450 10^3/uL Mean Platelet Volume 8.9 6.9-10.8 fL Neutrophils (%) (Auto) 66.2 37.0-80.0 % Lymphocytes (%) (Auto) 16.5 10.0-50.0 % Monocytes (%) (Auto) 10.9 0.0-12.0 % Eosinophils (%) (Auto) 5.3 0.0-7.0 % Basophils (%) (Auto) 1.1 0.0-2.0 % Neutrophils # (Auto) 5.3 1.6-8.6 10 ^3/uL Lymphocytes # (Auto) 1.3 0.4-5.4 10 ^3/uL Monocytes # (Auto) 0.9 0-1.3 10 ^3/uL Eosinophils # (Auto) 0.4 0-0.8 10 ^3/uL Basophils # (Auto) 0.1 0-0.2 10 ^3/uL Nucleated Red Blood Cells 0.0 % Sodium Level 132 L 136-145 mmol/L Potassium Level 5.3 H 3.5-5.1 mmol/L Chloride Level 97 L 98-107 mmol/L Carbon Dioxide Level 21 20-31 mmol/L Anion Gap 14 5-15 Blood Urea Nitrogen 82 *H 9-23 mg/dL Creatinine 15.14 *H 0.700-1.30 mg/dL Glomerular Filtration Rate Calc 4 >90 mL/min BUN/Creatinine Ratio 5.4 L 10.0-20.0 Serum Glucose 433 *H 74-106 mg/dL Calcium Level 7.3 L 8.7-10.4 mg/dL Phosphorus Level 9.1 H 2.4-5.1 mg/dL Magnesium Level 2.4 1.6-2.6 mg/dL B-Type Natriuretic Peptide 2160.90 0-100 pg/mL Assessment/Plan Assessment/Plan Volume overload with scrotal swelling likely due to ESRD Bilateral lower extremity swelling likely due to ESRD -BNP 2160 -Lasix IV 80 mg once -continue Lasix 40 mg IV b.i.d. Intractable nausea and vomiting likely due to gastroparesis -clear liquid diet -ondansetron 4 mg IV p.r.n. q.4 -metoclopramide 5 mg p.o. q.i.d. -pending abdominal x-ray NSTEMI type 2 likely due to ESRD -trough level 60, 58, 53 -EKG no significant ST elevation or T inversion ESRD on peritoneal dialysis -creatinine 15.23, BUN 86 -nephrology consultation has been done -as per patient is compliant with dialysis -pending vitamin-D and PTH level Anemia of chronic disease -iron 48, ferritin 205 -repeat iron panel Uncontrolled hypertension -continue nifedipine 90 mg p.o. daily -hydralazine 50 mg p.o. t.i.d. -Coreg 6.25 mg p.o. b.i.d. -patient was given 20 mg IV hydralazine to control blood pressure. -strict 2 g sodium diet Uncontrolled diabetes mellitus type 1 with HGB A1c 8.4 on 12/24/2024 -serum glucose 433 mg/dL -Lantus 40 units q.p.m. daily -aggressive sliding scale insulin -strict cardiac diet -Accu-Cheks q.4 -atorvastatin 20 mg p.o. daily Hyperphosphatemia -continue sevelamer 80 mg p.o. t.i.d. Hyperkalemia due to ESRD -Lasix 80 mg IV -sodium bicarbonate 650 mg p.o. t.i.d. -potassium level improved from 5.3-4.5 -continue to monitor Mild hyponatremia: Sodium 132 -continue to monitor, no acute symptoms. PUD prophylaxis with Protonix DVT prophylaxis with Lovenox Goals of care discussed greater than 24 minutes, full code status. Plan discussed with Dr. Elias Plan discussed with: Patient, Other (RN) My Orders Orders - JULIANA POZO Procedure Category Date Status Time Admit ADMIT 12/23/24 Transmitted 21:54 Nitroglycerin PHA 12/23/24 In Process Sublingual (Ntrostat 22:00 Morphine Sulfate PHA 12/23/24 In Process Injection 22:00 Sodium Bicarb Tab PHA 12/23/24 In Process 22:00 Atorvastatin (Lipitor) PHA 12/23/24 In Process 22:00 Carvedilol Tablet PHA 12/23/24 In Process (Coreg Tablet) 22:00 Hydralazine Hcl PHA 12/23/24 In Process Tablet (Apresoline 22:00 Metoprolol Tartrate PHA 12/23/24 In Process Tablet (Lopressor Ta 22:00 Nifedipine Er PHA 12/24/24 In Process (Procardia Xl 10:00 Pantoprazole Tablet PHA 12/24/24 In Process (Protonix Tablet) 10:00 Glucose Blood PHA 12/24/24 In Process (Accu-Chek Comfort 00:00 Insulin R (Human) PHA 12/24/24 In Process (Insulin R) 00:00 Dextrose 50% Syringe PHA 12/23/24 In Process 22:00 Consistent DIET 12/24/24 Transmitted Carb(Ccho)Diabetes Breakfast *Dr. Fatuma Truong -Dagoberto CONS 12/23/24 Transmitted Kaelyn 21:58 Clear Liq Diet DIET 12/24/24 Transmitted Breakfast Insulin Lantus PHA 12/24/24 In Process (Glargine) (Lantus) 22:00 Sevelamer (Renagel) PHA 12/24/24 In Process 08:00 Sevelamer (Renagel) PHA 12/23/24 In Process 22:15 Sodium Zirconium PHA 12/23/24 In Process Cyclosilicate 22:15 Date of Service: Dec 23, 2024 Billing Provider: CODI EILAS MD Common Visit Codes: [id number] INP/OBS CARE (HIGH) JULIANA POZO RESIDENT Dec 23, 2024 22:11
[2024-12-24] VITALS (10 sets, daily range): BP systolic 90–190; BP diastolic 45–115; PULSE 80–91; RESP 10–18; TEMP 96.7–98.1; O2SAT 95–100
[2024-12-24] MEDS: ACCU-CHEK COMFORT CURVE STRIP VI SCH (00:45)
[2024-12-24] MEDS: InsuLIN REG 1unit/0.01ml Soln (100units/ml) SC SCH (00:46)
[2024-12-24] MEDS: SODIUM ZIRCONIUM CYCL 10 GM PAK PO ONE (00:47)
[2024-12-24] MEDS: FUROSEMIDE 100 MG/10ML VIAL IV ONE (00:47)
[2024-12-24] MEDS: SEVELAMER 800 MG TAB PO ONE (00:47)
[2024-12-24] MEDS: CARVEDILOL 3.125 MG TAB PO SCH (00:48)
[2024-12-24] MEDS: SODIUM BICARBONATE 650 MG TAB PO SCH (00:49)
[2024-12-24] MEDS: ATORVASTATIN 20 MG TAB PO SCH (00:49)
[2024-12-24] MEDS: MORPHINE SULFATE INJ 2 MG/ml SYRG IV ONE (02:34)
[2024-12-24 04:10] LABS: Hematocrit 29.7 % (41.0-53.0); Hemoglobin 10.0 g/dL (13.5-17.5); Mean Corpuscular Hemoglobin 30.6 pg (28.0-32.0); Mean Corpuscular Volume 91.2 fL (80.0-100.0); Nucleated Red Blood Cells % 0.1 %
[2024-12-24 04:29] LABS: Chloride 99 mmol/L (98-107); Potassium 4.5 mmol/L (3.5-5.1)
[2024-12-24 04:30] LABS: Anion Gap 15 (5-15); Carbon Dioxide 21 mmol/L (20-31)
[2024-12-24 04:33] LABS: Calcium 7.5 mg/dL (8.7-10.4); Sodium 135 mmol/L (136-145)
[2024-12-24 04:35] LABS: BUN/Creatinine Ratio 5.6 (10.0-20.0)
[2024-12-24 04:36] LABS: Magnesium 2.5 mg/dL (1.6-2.6)
[2024-12-24 04:44] LABS: Glucose 171 mg/dL (74-106)
[2024-12-24 04:47] LABS: Blood Urea Nitrogen 86 mg/dL (9-23)
[2024-12-24] MEDS ORDERED: HYDROcodone-ACET 5/325MG TAB PO PRN (05:45)
[2024-12-24] MEDS: FUROSEMIDE 40 MG/4 ML VIAL IV SCH (05:47)
[2024-12-24] MEDS: SEVELAMER 800 MG TAB PO SCH (08:00)
[2024-12-24] MEDS: PANTOPRAZOLE 40 MG TAB PO SCH (09:46)
--- NOTE | 2024-12-24 10:13 | DVH ---
Procedure: XY ABDOMEN 2 VIEW Exam Date: 12/24/2024 09:11 AM History: nausea and vomiting Comparison Study: None Technique: AP of the chest AP upright of the abdomen AP supine of the abdomen FINDINGS: No focal evidence of airspace disease. The cardiomediastinal silhouette is within normal limits. No acute osseous lesions. Nonobstructive bowel gas pattern noted. There is no evidence for pneumoperitoneum. No abnormal calcif ications noted. IMPRESSION: Non-specific gas-filled loops of bowel. END IMPRESSION:
--- NOTE | 2024-12-24 12:13 | DVHPN2 ---
Reviewed: Care Plan, H&P, Labs, Medications, Previous Orders, Radiology Changes from previous H/P or p: No Changes Eyes: No Pain, No Vision change, No Conjunctivae inflammation, No Eyelid inflammation, No Other, No Redness ENT: No Ear pain, No Ear discharge, No Nose pain, No Nose discharge, No Nose congestion, No Mouth pain, No Mouth swelling, No Throat pain, No Throat swelling, No Other Cardiovascular: No Chest Pain, No Palpitations, No Orthopnea, No Paroxysmal Noc. Dyspnea, No Edema, No Lt Headedness, No Other Respiratory: Shortness of breath Gastrointestinal: Nausea, Vomiting, Abdominal Pain Genitourinary: No Dysuria, No Frequency, No Incontinence, No Hematuria, No Retention; Other (Scrotal swelling) Musculoskeletal: No other, No neck pain, No shoulder pain, No arm pain, No back pain, No hand pain, No leg pain, No foot pain Skin: No Rash, No Lesions, No Jaundice, No Bruising, No Other Objective Vitals Vital Signs Date Time Temp Pulse Resp B/P (MAP) Pulse Ox O2 Delivery O2 Flow Rate FiO2 12/24/24 09:47 190/115 12/24/24 09:46 91 12/24/24 09:00 96.7 16 95 96.7 12/24/24 08:15 Room Air* 0 21 Medications Current Medications Medications Dose Ordered Sig/Kiran Route Start Time Stop Time Status Last Admin Dose Admin Nitroglycerin 0.4 mg Q5MINP PRN SL 12/23/24 22:00 Morphine Sulfate 2 mg Q30M PRN IV 12/23/24 22:00 Sodium Bicarbonate 650 mg TID PO 12/23/24 22:00 12/24/24 05:47 650 MG Atorvastatin Calcium 20 mg HS PO 12/23/24 22:00 12/24/24 00:49 20 MG Carvedilol 6.25 mg Q12HR PO 12/23/24 22:00 12/24/24 09:46 6.25 MG Hydralazine HCl 50 mg Q8HR PO 12/23/24 22:00 12/24/24 05:48 50 MG Nifedipine 90 mg DAILY PO 12/24/24 10:00 12/24/24 09:47 90 MG Pantoprazole Sodium 40 mg DAILY PO 12/24/24 10:00 12/24/24 09:46 40 MG Diagnostic Test (Pha) 1 strip Q6HR 12/24/24 00:00 12/24/24 12:01 1 STRIP Insulin Human Regular Q6HR SC 12/24/24 00:00 12/24/24 12:03 2 UNITS Dextrose 50 ml UD PRN IV 12/23/24 22:00 Insulin Glargine 40 units HS SC 12/24/24 22:00 Sevelamer HCl 800 mg TIDWM PO 12/24/24 08:00 Furosemide 40 mg BIDD IV 12/24/24 06:00 12/24/24 05:47 40 MG Ondansetron HCl 4 mg Q6HPRN PRN IV 12/24/24 02:30 Acetaminophen 650 mg Q4HP PRN PO 12/24/24 05:45 Acetaminophen/ Hydrocodone Bitart 1 tab Q4HPRN PRN PO 12/24/24 05:45 Laboratory Results Laboratory Tests 12/24/24 03:23 Chemistry Test 12/23/24 19:24 12/24/24 03:23 Calcium Level 7.3 mg/dL (8.7-10.4) L 7.5 mg/dL (8.7-10.4) L Magnesium Level 2.4 mg/dL (1.6-2.6) 2.5 mg/dL (1.6-2.6) Phosphorus Level 9.1 mg/dL (2.4-5.1) H Cardiac Markers Test 12/23/24 19:24 B-Type Natriuretic Peptide 2160.90 pg/mL (0-100) HgA1c, TSH Test 12/24/24 03:23 Hemoglobin A1c 8.4 % A1C (<5.7) H Labs and/or images reviewed: Labs reviewed by me, Image(s) reviewed by me Assessment/Plan Assessment/Plan Intractable nausea and vomiting likely due to gastroparesis: Pantoprazole, Reglan, KUB x-ray negative, CT abdomen pelvis without contrast pending, GI consult for Dr. Horan, will check urine drug screen ESRD on peritoneal dialysis Non ST-elevation type 2 OH Anemia of chronic disease Uncontrolled hypertension Uncontrolled type 1 diabetes: Insulin sliding scale A1c 8.5 Hyperkalemia due to ESRD Mild hyponatremia Weakness Scrotal edema possibly secondary to ESRD: Testicular ultrasound ordered Time spent 65 minutes Patient is full code Advanced care planning time 20 minutes Plan discussed with: Patient My Orders Orders - MARIA MELARA MD Procedure Category Date Status Time Ct Ab Pel Wo Con-No CT 12/24/24 Logged Oral Or Iv 12:01 Drug Screen LAB 12/24/24 Logged 12:02 Date of Service: Dec 24, 2024 Billing Provider: MARIA MELARA MD Common Visit Codes: [id number] CARE 30-74 MIN MARIA MELARA MD Dec 24, 2024 12:13
[2024-12-24] MEDS ORDERED: hydrALAZINE HCL 20 MG/ML VL IV PRN (12:30)
[2024-12-24] MEDS: HYDROmorphone HCL 2 MG/ML VL/or syr IV PRN (13:01)
--- NOTE | 2024-12-24 13:19 | DVH ---
Indication: Bilateral scrotal edema Technique: Real-time ultrasound images through the scrotum. Comparison: None Findings: Extensive scrotal wall edema and thickening. Right testicle measures 3.6 x 2.5 x 2.3 cm. It has normal echogenicity and echotexture, with no foca l solid or cystic mass. There is normal flow on color Doppler, with normal waveforms. The right epidi dymal head measures 1.9 cm, and has no focal masses. Left testicle measures 3.5 x 2.9 x 2 cm. It has normal echogenicity and echotexture, with no focal s olid or cystic mass. There is normal flow on color Doppler, with normal waveforms. The left epididyma l head measures 1.2 cm, and has a cyst that measures 5 mm. Echogenic foci/ calcifications in the lef t epididymal tail region. Left epididymis overall appears heterogeneous in appearance. There are small bilateral hydroceles. Impression: Extensive scrotal wall edema and thickening. Small bilateral hydroceles. Heterogeneous appearance of the left epididymis which could be secondary to epididymitis. Follow-up t o resolution to exclude underlying lesion. Left epididymal head cysts measuring 5 mm. Possible Echogenic foci/ calcifications within the left epididymal tail region. Recommend continued f ollow-up to exclude epididymal mass/ neoplasm.
--- NOTE | 2024-12-24 16:14 | DVH ---
Exam: CT CT AB PEL WO CON-NO ORAL OR IV History: Intractable Nausea and vomiting Comparison Study: CT CT AB PEL WO CON-NO ORAL OR IV on DOS: 03/02/24 Technique: Multidetector spiral CT of the abdomen and pelvis was performed from lung bases to pubic symphysis. Imaging was performed without IV contrast. Axial, coronal and sagittal multiplanar reform ats were obtained from the axial data set by the technologist. Radiation dose : Abdomen/Pelvis: CTDIvol 6.65 mGy, DLP 374.39 mGy*cm. Findings: Evaluation of solid organs is limited due to lack of intravenous contrast use. Lung Bases: Moderate right pleural effusion and small left pleural effusion with associated bibasilar atelectasis and consolidation Liver: The liver is normal in size. No focal lesions. Gallbladder and biliary Tree: Unremarkable Spleen: Unremarkable Pancreas: The pancreas is grossly normal in appearance. Adrenal Glands: Unremarkable Kidneys: Kidneys are grossly normal without calculi or hydronephrosis. Bladder: Grossly unremarkable for degree of distention. Bowel: The stomach is grossly normal in appearance. Small bowel and colon are normal in caliber and d istribution. Normal appendix is visualized in the right lower quadrant without findings of appendicit is. Ascites: Mild abdominal and pelvic ascites. Lymphadenopathy: Prominent retroperitoneal lymph nodes measuring up to 11 mm in short axis. Abdominal wall and Mesentery: Peritoneal dialysis catheter in place. Anasarca. Small fat containing left inguinal hernia. Vasculature: Calcified atherosclerotic disease. Pelvic Organs: Unremarkable Musculoskeletal: No aggressive focal bony lesions, acute fractures or dislocation. IMPRESSION: 1. Moderate right and small left pleural effusions with associated basilar atelectasis and consolidat ion. Anasarca. Peritoneal dialysis catheter in place with mild ascites. Findings suggest fluid overlo ad. Clinical correlation and continued follow-up is recommended. Mildly prominent retroperitoneal ly mphadenopathy is nonspecific and could be reactive. Clinical correlation and continued follow-up is recommended. Fat containing left inguinal hernia. Calcified atherosclerotic disease. Radiation optimization: All CT scans at this facility use at least one of these dose optimization juan carlos hniques: Automated exposure control mA and/or kV adjustment per patient size (includes targeted exams where dose is matched to clinical indication) or iterative reconstruction. HS:Y
--- NOTE | 2024-12-24 18:07 | DVHINCON2 ---
Date of service: Dec 24, [address] Lechuga Reason for Consultation End-stage kidney disease History of Present Illness This is a 29-year-old male with a past medical history of end-stage kidney disease on peritoneal dialysis, type 1 diabetes, hypertension, anemia of chronic disease, gastroparesis presenting to the emergency room because of intractable nausea and vomiting which has been going on for the past 3-4 days. Patient was initially seen at [facility] from where he was discharged with a in a day. His symptoms continued and hence he was brought to the emergency room here. Admitted for further evaluation and workup. GI consult is pending. Nephrology has been consulted for continuation of his peritoneal dialysis. Patient has been experiencing increased swelling to bilateral lower extremities and also experiencing scrotal edema. 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 Does use furosemide 80 mg b.i.d. at home. Also having intractable nausea and vomiting. As stated above he has a history of diabetic gastroparesis. Past Medical History As stated above Past Surgical History PD catheter placement Family History: Cardiovascular disease paternal grandfather G8 FATHER Family history: Cardiovascular disease paternal grandfather, Onset:Unknown Family history: Diabetes mellitus paternal grandfather, Onset:Unknown Social History No active history of smoking, alcohol or drug abuse Allergies: Coded Allergies: Amoxicillin (Verified Allergy, Unknown, 05/09/14) Clavulanic Acid (Verified Allergy, Unknown, 05/09/14) Penicillins (Verified Allergy, Unknown, 01/20/15) Home Meds Active Scripts Alum & Mag Hydrox-Simethicone (Gi Cocktail) 55 Ml Ss, 30 ML PO Q6HP PRN for 30 Days, #120 ML Prov:JEREMY POPE [facility] 05/14/24 Pantoprazole Sodium Sesquihydr (Pantoprazole Sodium) 40 Mg Tab, 40 MG PO DAILY for 30 Days, #30 TAB Prov:JEREMY POPE [facility] 05/14/24 Metoprolol Tartrate (LOPRESSOR TABLET) 50 Mg Tb, 50 MG PO BID for 30 Days, #60 TAB Prov:JEREMY POPE [facility] 05/14/24 Furosemide (Furosemide) 40 Mg Tab, 40 MG PO BIDD for 30 Days, #60 TAB Prov:JEREMY POPE [facility] 05/14/24 Atorvastatin Calcium (ATORVASTATIN CALCIUM) 20 Mg Tab, 20 MG PO HS for 30 Days, #30 TAB [facility] 05/14/24 Amlodipine Besylate (NORVASC TABLET) 5 Mg Tb, 10 MG PO DAILY for 30 Days, #60 TAB [facility] 05/14/24 Sucralfate (CARAFATE SUSP) 1 Gm/10 Ml Ss, 1 GM GT QID@0600,1130,1700,2200 for 30 Days, #200 ML Prov:[facility] 03/06/24 Sodium Bicarbonate (Sodium Bicarbonate) 650 Mg Tab, 650 MG PO BID for 30 Days, #60 TAB Prov:[facility] 03/06/24 Rifaximin (Xifaxan) 550 Mg Tab, 400 MG PO TID for 30 Days, #66 TAB Prov:[facility] 03/06/24 Pantoprazole Sodium Sesquihydr (Pantoprazole Sodium) 40 Mg Tab, 40 MG PO DAILY for 30 Days, #30 TAB Prov:[facility] 03/06/24 Nystatin (Mouth-Throat) (Mycostatin (Mouth-Throat)) 500,000 Units/5 Ml Ss, 5 ML MT QID for 30 Days, #30 ML Prov:[facility] 03/06/24 Nifedipine (Nifedipine Er) 30 Mg Tab, 90 MG PO DAILY for 30 Days, #90 TAB Prov:[facility] 03/06/24 Insulin Glargine (Lantus) 100 Unit/Ml Inj, 20 UNITS SC DAILY for 30 Days, #10 INJ Prov:[facility] 03/06/24 Hydralazine HCl (Hydralazine HCl) 25 Mg Tab, 50 MG PO Q8HR for 30 Days, #180 TAB Prov:[facility] 03/06/24 Gabapentin (Gabapentin) 100 Mg Cap, 100 MG PO TID for 30 Days, #90 CAP Prov:[facility] 03/06/24 Carvedilol (COREG) 3.125 Mg Tab, 6.25 MG PO Q12HR for 30 Days, #120 TAB Prov:[facility] 03/06/24 Atorvastatin Calcium (ATORVASTATIN CALCIUM) 20 Mg Tab, 20 MG PO HS for 30 Days, #30 TAB Prov:[facility]EREM[facility]OPE [facility] 03/06/24 Acetaminophen (Acetaminophen) 325 Mg Tab, 650 MG PO Q6HPRN PRN for 10 Days, #80 TAB Prov:[facility] 03/06/24 Reported Medications Insulin Lispro (Human) (Humalog) 100 Unit/Ml Inj, 100 UNIT SC, INJ 05/09/24 Furosemide (Furosemide) 20 Mg Tab, 20 MG PO BID PRN 04/16/24 Hydralazine Hcl (Hydralazine Hcl) 100 Mg Tab, 100 MG PO TID 04/16/24 Ergocalciferol (Vitamin D) 50,000 Unit Cap, 1 CAP PO QWEEKLY 12/27/23 Carvedilol (Carvedilol) 6.25 Mg Tab, 1 TAB PO BID 12/27/23 Insulin Lispro (Insulin Lispro) 100 Unit/Ml Inj, SC 06/06/23 Insulin Glargine (Lantus) 100 Unit/Ml Inj, SC 06/06/23 Hydralazine Hcl (Hydralazine Hcl) 50 Mg Tab, 1 TAB PO QID 06/06/23 Continuous Blood Glucose Syste (Dexcom G6 Transmitter) 1 Mis Mis, UD 06/06/23 Continuous Blood Glucose Syste (Dexcom G6 Sensor) 1 Mis Mis, UD 06/06/23 Insulin Lispro (Human) (Humalog) 100 Unit/Ml Inj, 0 SC AC VIA SLIDING SCALE 07/26/20 Current Medications Current Medications Medications (Trade) Dose Ordered Sig/Kiran Route PRN Reason Start Time Stop Time Status Last Admin Nitroglycerin (Ntrostat Sublingual) 0.4 mg Q5MINP PRN SL FOR CHEST PAIN 12/23/24 22:00 Morphine Sulfate 2 mg Q30M PRN IV FOR CHEST PAIN 12/23/24 22:00 Sodium Bicarbonate 650 mg TID PO 12/23/24 22:00 12/24/24 14:01 Atorvastatin Calcium (Lipitor) 20 mg HS PO 12/23/24 22:00 12/24/24 00:49 Carvedilol (Coreg Tablet) 6.25 mg Q12HR PO 12/23/24 22:00 12/24/24 09:46 Hydralazine HCl (Apresoline Tablet) 50 mg Q8HR PO 12/23/24 22:00 12/24/24 14:02 Metoprolol Tartrate (Lopressor Tablet) 50 mg BID PO 12/23/24 22:00 12/23/24 23:24 DC Nifedipine (Procardia Xl (Time-Release)) 90 mg DAILY PO 12/24/24 10:00 12/24/24 09:47 Pantoprazole Sodium (Protonix Tablet) 40 mg DAILY PO 12/24/24 10:00 12/24/24 09:46 Diagnostic Test (Pha) (Accu-Chek Comfort Curve T) 1 strip Q6HR 12/24/24 00:00 12/24/24 17:41 Insulin Human Regular (InsuLIN R) Q6HR SC 12/24/24 00:00 12/24/24 12:03 Dextrose 50 ml UD PRN IV Blood Sugar LESS THAN 60 12/23/24 22:00 Insulin Glargine (Lantus) 40 units HS SC 12/24/24 22:00 Sevelamer HCl (Renagel) 800 mg TIDWM PO 12/24/24 08:00 Furosemide (Lasix Injection) 40 mg BIDD IV 12/24/24 06:00 12/24/24 17:41 Ondansetron HCl (Zofran) 4 mg Q6HPRN PRN IV NAUSEA / VOMITING 12/24/24 02:30 Acetaminophen (Tylenol Tablet) 650 mg Q4HP PRN PO MODERATE PAIN (4-6 PAIN SCALE) 12/24/24 05:45 Acetaminophen/ Hydrocodone Bitart (Cass 5/325MG Tab) 1 tab Q4HPRN PRN PO SEVERE PAIN (7-10 PAIN SCALE) 12/24/24 05:45 Hold Hydromorphone HCl (Dilaudid Injection) 2 mg Q6HPRN PRN IV SEVERE PAIN (7-10 PAIN SCALE) 12/24/24 12:15 12/24/24 13:01 Clonidine HCl (Catapres Tablet) 0.2 mg Q6HP PRN PO SBP>160 12/24/24 12:30 Hydralazine HCl (Apresoline Injection) 10 mg Q6HP PRN IV SBP>160 12/24/24 12:30 12/24/24 12:50 DC Hydralazine HCl (Apresoline Injection) 10 mg Q6HP PRN IV SBP>150 12/24/24 13:00 Review of Systems Twelve point review of systems negative except as stated in the HPI Vital Signs Vital Signs Date Time Temp Pulse Resp B/P (MAP) Pulse Ox O2 Delivery O2 Flow Rate FiO2 12/24/24 17:41 125/84 12/24/24 17:16 97.2 80 17 98 97.2 12/24/24 08:15 Room Air* 0 21 Physical Exam Patient alert. HEENT: Normocephalic. Lungs: Diminished breath sounds at bases CVS: S1, S2 regular rate rhythm Abdomen: Soft, bowel sounds present TERMINAL SUPERINTENDENT: No focal deficits Extremities: Edema present Labs/Diagnostic Data Labs Test 12/24/24 17:34 12/24/24 03:23 12/23/24 22:25 12/23/24 19:24 Range/Units POC Glucose 92 70-106 mg/dl White Blood Count 6.7 4.4-10.8 10^3/uL Red Blood Count 3.26 L 4.5-5.90 10^6/uL Hemoglobin 10.0 L 13.5-17.5 g/dL Hematocrit 29.7 L 41.0-53.0 % Mean Corpuscular Volume 91.2 80.0-100.0 fL Mean Corpuscular Hemoglobin 30.6 28.0-32.0 pg Mean Corpuscular Hemoglobin Concent 33.6 32.0-36.0 g/dL Red Cell Distribution Width 14.9 H 11.8-14.3 % Platelet Count 216 140-450 10^3/uL Mean Platelet Volume 8.9 6.9-10.8 fL Neutrophils (%) (Auto) 59.3 37.0-80.0 % Lymphocytes (%) (Auto) 20.0 10.0-50.0 % Monocytes (%) (Auto) 13.5 H 0.0-12.0 % Eosinophils (%) (Auto) 6.1 0.0-7.0 % Basophils (%) (Auto) 1.1 0.0-2.0 % Neutrophils # (Auto) 3.9 1.6-8.6 10 ^3/uL Lymphocytes # (Auto) 1.3 0.4-5.4 10 ^3/uL Monocytes # (Auto) 0.9 0-1.3 10 ^3/uL Eosinophils # (Auto) 0.4 0-0.8 10 ^3/uL Basophils # (Auto) 0.1 0-0.2 10 ^3/uL Nucleated Red Blood Cells 0.1 % Sodium Level 135 L 136-145 mmol/L Potassium Level 4.5 3.5-5.1 mmol/L Chloride Level 99 98-107 mmol/L Carbon Dioxide Level 21 20-31 mmol/L Anion Gap 15 5-15 Blood Urea Nitrogen 86 *H 9-23 mg/dL Creatinine 15.23 *H 0.700-1.30 mg/dL Glomerular Filtration Rate Calc 4 >90 mL/min BUN/Creatinine Ratio 5.6 L 10.0-20.0 Serum Glucose 171 #H 74-106 mg/dL Hemoglobin A1c 8.4 H <5.7 % A1C Calcium Level 7.5 L 8.7-10.4 mg/dL Magnesium Level 2.5 1.6-2.6 mg/dL Parathyroid Hormone (Intact) 490.6 H 18.4-80.1 pg/mL Troponin I High Sensitivity 53 </=54 ng/L Phosphorus Level 9.1 H 2.4-5.1 mg/dL B-Type Natriuretic Peptide 2160.90 0-100 pg/mL Assessment End-stage kidney disease on peritoneal dialysis Anasarca Persistent nausea and vomiting secondary to diabetic gastroparesis Type 1 diabetes Accelerated hypertension Anemia in chronic kidney disease Hyperlipidemia Secondary hyperparathyroidism of renal origin Hyperphosphatemia Plan/Recommendation Patient does not want to do the manual exchanges here in the hospital. Encouraged to get his cycler from home. Encouraged to use 4.25% dextrose and 2.5% dextrose today. Increased Lasix dose 60 mg IV b.i.d. GI consultation for persistent nausea and vomiting. Labs in a.m.. Plan discussed with: Patient KATIE NAPIER MD Dec 24, 2024 18:07
[2024-12-24] MEDS: ONDANSETRON HCL 4 MG/2 ML VIAL IV PRN (20:03)
[2024-12-24] MEDS: INSULIN LANTUS (GLARGINE) 1 /0.01ml (100units/ml) SC SCH (21:44)
[2024-12-25] MEDS: DEXTROSE (50%) 50ML SYRG IV PRN (05:49)
[2024-12-25] MEDS: FUROSEMIDE 40 MG/4 ML VIAL IV SCH (06:00)
[2024-12-25 08:00] VITALS: PULSE 70; PULSE 79; RESP 17; O2SAT 98
--- NOTE | 2024-12-25 08:09 | DVHPN2 ---
Reviewed: Care Plan, H&P, Labs, Medications, Previous Orders, Radiology Changes from previous H/P or p: No Changes Eyes: No Pain, No Vision change, No Conjunctivae inflammation, No Eyelid inflammation, No Other, No Redness ENT: No Ear pain, No Ear discharge, No Nose pain, No Nose discharge, No Nose congestion, No Mouth pain, No Mouth swelling, No Throat pain, No Throat swelling, No Other Cardiovascular: No Chest Pain, No Palpitations, No Orthopnea, No Paroxysmal Noc. Dyspnea, No Edema, No Lt Headedness, No Other Respiratory: Shortness of breath Gastrointestinal: Nausea, Vomiting, Abdominal Pain Genitourinary: No Dysuria, No Frequency, No Incontinence, No Hematuria, No Retention; Other (Scrotal swelling) Musculoskeletal: No other, No neck pain, No shoulder pain, No arm pain, No back pain, No hand pain, No leg pain, No foot pain Skin: No Rash, No Lesions, No Jaundice, No Bruising, No Other Objective Vitals Vital Signs Date Time Temp Pulse Resp B/P (MAP) Pulse Ox O2 Delivery O2 Flow Rate FiO2 12/25/24 06:27 105/61 12/25/24 02:50 70 18 12/24/24 21:00 97.4 99 97.4 12/24/24 20:00 Room Air* 0 21 Intake/Output Intake and Output 12/25/24 07:00 Intake Total 240 ml Output Total 0 ml Balance 240 ml Intake Oral 240 ml Output Urine Total 0 ml Medications Current Medications Medications Dose Ordered Sig/Kiran Route Start Time Stop Time Status Last Admin Dose Admin Nitroglycerin 0.4 mg Q5MINP PRN SL 12/23/24 22:00 Morphine Sulfate 2 mg Q30M PRN IV 12/23/24 22:00 Sodium Bicarbonate 650 mg TID PO 12/23/24 22:00 12/24/24 22:37 650 MG Atorvastatin Calcium 20 mg HS PO 12/23/24 22:00 12/24/24 22:37 20 MG Carvedilol 6.25 mg Q12HR PO 12/23/24 22:00 12/24/24 09:46 6.25 MG Hydralazine HCl 50 mg Q8HR PO 12/23/24 22:00 12/25/24 06:27 50 MG Nifedipine 90 mg DAILY PO 12/24/24 10:00 12/24/24 09:47 90 MG Pantoprazole Sodium 40 mg DAILY PO 12/24/24 10:00 12/24/24 09:46 40 MG Diagnostic Test (Pha) 1 strip Q6HR 12/24/24 00:00 12/25/24 06:28 1 STRIP Insulin Human Regular Q6HR SC 12/24/24 00:00 12/24/24 21:46 20 UNITS Dextrose 50 ml UD PRN IV 12/23/24 22:00 12/25/24 05:49 50 ML Insulin Glargine 40 units HS SC 12/24/24 22:00 12/24/24 21:44 40 UNITS Sevelamer HCl 800 mg TIDWM PO 12/24/24 08:00 Ondansetron HCl 4 mg Q6HPRN PRN IV 12/24/24 02:30 12/25/24 02:17 4 MG Acetaminophen 650 mg Q4HP PRN PO 12/24/24 05:45 Acetaminophen/ Hydrocodone Bitart 1 tab Q4HPRN PRN PO 12/24/24 05:45 Hold Hydromorphone HCl 2 mg Q6HPRN PRN IV 12/24/24 12:15 12/25/24 02:20 2 MG Clonidine HCl 0.2 mg Q6HP PRN PO 12/24/24 12:30 Hydralazine HCl 10 mg Q6HP PRN IV 12/24/24 13:00 Furosemide 60 mg BIDD IV 12/25/24 06:00 Laboratory Results Laboratory Tests 12/24/24 03:23 Labs and/or images reviewed: Labs reviewed by me, Image(s) reviewed by me Assessment/Plan Assessment/Plan Intractable nausea and vomiting likely due to gastroparesis: Pantoprazole, Reglan, KUB x-ray negative, CT abdomen pelvis without contrast pending, GI consult for Dr. Horan, will check urine drug screen ESRD on peritoneal dialysis , nephrology consult appreciated patient do peritoneal dialysis and to get the machine from home per Nephrology Non ST-elevation type 2 [place] Anemia of chronic disease Uncontrolled hypertension Uncontrolled type 1 diabetes: Insulin sliding scale A1c 8.5 Hyperkalemia due to ESRD Mild hyponatremia Weakness Scrotal edema possibly secondary to ESRD: Left epididymitis: doxycycline 100 mg IV b.i.d. Time spent 55 minutes Patient is full code Advanced care planning time 20 minutes Plan discussed with: Patient My Orders Orders - MARIA MELARA MD Procedure Category Date Status Time Ct Ab Pel Wo Con-No CT 12/24/24 Resulted Oral Or Iv 12:01 Drug Screen LAB 12/24/24 Logged 12:02 * Gi Dvh Decal Decorator CONS 12/24/24 Transmitted 12:02 Testicular Ultrasound US 12/24/24 Resulted 12:13 Hydromorphone PHA 12/24/24 In Process Injection (Dilaudid 12:15 Clonidine Hcl Tablet PHA 12/24/24 In Process (Catapres Tablet) 12:30 Hydralazine Injection PHA 12/24/24 In Process (Apresoline Inject 13:00 Date of Service: Dec 25, 2024 Billing Provider: MARIA MELARA MD Common Visit Codes: [id number]ARE 30-74 MIN MARIA MELARA MD Dec 25, 2024 08:09
[2024-12-25 09:00] VITALS: BP 134/66; PULSE 79; RESP 17; TEMP 97.3; O2SAT 98
[2024-12-25] MEDS: ACETAMINOPHEN 325 MG TAB PO ONE (11:23)
[2024-12-25] MEDS: DOXYCYCLINE 100MG/100ML 100 ML IV SCH (11:24)
--- NOTE | 2024-12-25 15:07 | DVHPN2 ---
Progress Note - Dictate Date Seen: Dec 25, 2024 Medical Necessity Reason Pt with a Central, PICC or Fol: No Subjective Patient did not undergo dialysis last night. He says his blood pressure was low and did not connect himself with the machine. He is upset as his Dilaudid has been discontinued. Continues to be significantly edematous. As per the primary RN he has been refusing most of his medications. Evaluated by GI wants to do an EGD for him tomorrow. vital signs Vital Sign Date Time Temp Pulse Resp B/P (MAP) Pulse Ox O2 Delivery O2 Flow Rate FiO2 12/25/24 09:00 97.3 79 17 134/66 (88) 98 97.3 12/25/24 08:00 Room Air* 0 21 Total Intake and Output 12/24/24 12/24/24 12/25/24 15:00 23:00 07:00 Intake Total 240 ml 0 ml Output Total 0 ml 0 ml Balance 240 ml 0 ml medications Current Medications Medications Dose Ordered Sig/Kiran Route Start Time Stop Time Status Last Admin Dose Admin Nitroglycerin 0.4 mg Q5MINP PRN SL 12/23/24 22:00 Sodium Bicarbonate 650 mg TID PO 12/23/24 22:00 12/24/24 22:37 650 MG Atorvastatin Calcium 20 mg HS PO 12/23/24 22:00 12/24/24 22:37 20 MG Carvedilol 6.25 mg Q12HR PO 12/23/24 22:00 12/24/24 09:46 6.25 MG Hydralazine HCl 50 mg Q8HR PO 12/23/24 22:00 12/25/24 06:27 50 MG Nifedipine 90 mg DAILY PO 12/24/24 10:00 12/24/24 09:47 90 MG Pantoprazole Sodium 40 mg DAILY PO 12/24/24 10:00 12/24/24 09:46 40 MG Diagnostic Test (Pha) 1 strip Q6HR 12/24/24 00:00 12/25/24 11:24 1 STRIP Insulin Human Regular Q6HR SC 12/24/24 00:00 12/24/24 21:46 20 UNITS Dextrose 50 ml UD PRN IV 12/23/24 22:00 12/25/24 05:49 50 ML Insulin Glargine 40 units HS SC 12/24/24 22:00 12/24/24 21:44 40 UNITS Sevelamer HCl 800 mg TIDWM PO 12/24/24 08:00 Ondansetron HCl 4 mg Q6HPRN PRN IV 12/24/24 02:30 12/25/24 02:17 4 MG Acetaminophen 650 mg Q4HP PRN PO 12/24/24 05:45 Acetaminophen/ Hydrocodone Bitart 1 tab Q4HPRN PRN PO 12/24/24 05:45 Hold Clonidine HCl 0.2 mg Q6HP PRN PO 12/24/24 12:30 Hydralazine HCl 10 mg Q6HP PRN IV 12/24/24 13:00 Furosemide 60 mg BIDD IV 12/25/24 06:00 Doxycycline Hyclate 100 ml @ 50 mls/hr Q12HR IV 12/25/24 09:00 12/25/24 11:24 50 MLS/HR objective Patient alert. 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 I offered to switch him to hemodialysis to help with fluid overload. He has refused. Recommended manual exchanges to be done by the RN every 6 hours which she has refused. Wants to do his peritoneal dialysis by himself with the cycler. Encouraged patient to be compliant. Continue with Lasix. We will increase the dose to 80 mg IV t.i.d.. Plan discussed with: Patient KATIE NAPIER MD Dec 25, 2024 15:07
[2024-12-25] MEDS: ACETAMINOPHEN 325 MG TAB PO PRN (15:28)
--- NOTE | 2024-12-25 15:33 | DVHINCON2 ---
Date of service: Dec 25, [address] Samson Reason for Consultation Abdominal pain intractable nausea vomiting History of Present Illness This 29-year-old male with a history of diabetes has got severe nausea vomiting anorexia and anemia patient is on renal dialysis peritoneal dialysis patient also has got history of gastroparesis with intractable nausea and vomiting the persistent elevation has been gagging conscious consistently discharge in [facility] apparently left AMA and having increasing problems with nausea vomiting etc. now. Patient has got diabetes type 1 on insulin and very poorly controlled also smokes marijuana and also wants pain medication all the time. Past Medical History Diabetes Past Surgical History Peritoneal dialysis Family History: Cardiovascular disease paternal grandfather G8 FATHER Family history: Cardiovascular disease paternal grandfather, Onset:Unknown Family history: Diabetes mellitus paternal grandfather, Onset:Unknown Family History Noncontributory Social History A smokes marijuana Allergies: Coded Allergies: Amoxicillin (Verified Allergy, Unknown, 05/09/14) Clavulanic Acid (Verified Allergy, Unknown, 05/09/14) Penicillins (Verified Allergy, Unknown, 01/20/15) Home Meds Active Scripts Alum & Mag Hydrox-Simethicone (Gi Cocktail) 55 Ml Ss, 30 ML PO Q6HP PRN for 30 D ays, #120 ML Prov:[facility] 05/14/24 Pantoprazole Sodium Sesquihydr (Pantoprazole Sodium) 40 Mg Tab, 40 MG PO DAILY for 30 Days, #30 TAB [facility] 05/14/24 Metoprolol Tartrate (LOPRESSOR TABLET) 50 Mg Tb, 50 MG PO BID for 30 Days, #60 TAB [facility] 05/14/24 Furosemide (Furosemide) 40 Mg Tab, 40 MG PO BIDD for 30 Days, #60 TAB [facility] 05/14/24 Atorvastatin Calcium (ATORVASTATIN CALCIUM) 20 Mg Tab, 20 MG PO HS for 30 Days, #30 TAB [facility] 05/14/24 Amlodipine Besylate (NORVASC TABLET) 5 Mg Tb, 10 MG PO DAILY for 30 Days, #60 TAB Prov[facility] 05/14/24 Sucralfate (CARAFATE SUSP) 1 Gm/10 Ml Ss, 1 GM GT QID@0600,1130,1700,2200 for 30 Days, #200 ML [facility] 03/06/24 Sodium Bicarbonate (Sodium Bicarbonate) 650 Mg Tab, 650 MG PO BID for 30 Days, #60 TAB [facility] 03/06/24 Rifaximin (Xifaxan) 550 Mg Tab, 400 MG PO TID for 30 Days, #66 TAB [facility] 03/06/24 Pantoprazole Sodium Sesquihydr (Pantoprazole Sodium) 40 Mg Tab, 40 MG PO DAILY for 30 Days, #30 TAB [facility] 03/06/24 Nystatin (Mouth-Throat) (Mycostatin (Mouth-Throat)) 500,000 Units/5 Ml Ss, 5 ML MT QID for 30 Days, #30 ML Prov[facility] 03/06/24 Nifedipine (Nifedipine Er) 30 Mg Tab, 90 MG PO DAILY for 30 Days, #90 TAB [facility] 03/06/24 Insulin Glargine (Lantus) 100 Unit/Ml Inj, 20 UNITS SC DAILY for 30 Days, #10 INJ Prov[facility] 03/06/24 Hydralazine HCl (Hydralazine HCl) 25 Mg Tab, 50 MG PO Q8HR for 30 Days, #180 TAB Prov[facility] 03/06/24 Gabapentin (Gabapentin) 100 Mg Cap, 100 MG PO TID for 30 Days, #90 CAP Prov:[facility] 03/06/24 Carvedilol (COREG) 3.125 Mg Tab, 6.25 MG PO Q12HR for 30 Days, #120 TAB Prov[facility] 03/06/24 Atorvastatin Calcium (ATORVASTATIN CALCIUM) 20 Mg Tab, 20 MG PO HS for 30 Days, #30 TAB Prov:[facility] 03/06/24 Acetaminophen (Acetaminophen) 325 Mg Tab, 650 MG PO Q6HPRN PRN for 10 Days, #80 TAB [facility] 03/06/24 Reported Medications Insulin Lispro (Human) (Humalog) 100 Unit/Ml Inj, 100 UNIT SC, INJ 05/09/24 Furosemide (Furosemide) 20 Mg Tab, 20 MG PO BID PRN 04/16/24 Hydralazine Hcl (Hydralazine Hcl) 100 Mg Tab, 100 MG PO TID 04/16/24 Ergocalciferol (Vitamin D) 50,000 Unit Cap, 1 CAP PO QWEEKLY 12/27/23 Carvedilol (Carvedilol) 6.25 Mg Tab, 1 TAB PO BID 12/27/23 Insulin Lispro (Insulin Lispro) 100 Unit/Ml Inj, SC 06/06/23 Insulin Glargine (Lantus) 100 Unit/Ml Inj, SC 06/06/23 Hydralazine Hcl (Hydralazine Hcl) 50 Mg Tab, 1 TAB PO QID 06/06/23 Continuous Blood Glucose Syste (Dexcom G6 Transmitter) 1 Mis Mis, UD 06/06/23 Continuous Blood Glucose Syste (Dexcom G6 Sensor) 1 Mis Mis, UD 06/06/23 Insulin Lispro (Human) (Humalog) 100 Unit/Ml Inj, 0 SC AC VIA SLIDING SCALE 07/26/20 Current Medications Current Medications Medications (Trade) Dose Ordered Sig/Kiran Route PRN Reason Start Time Stop Time Status Last Admin Insulin Glargine (Lantus) 40 units HS SC 12/24/24 22:00 12/24/24 21:44 Furosemide (Lasix Injection) 60 mg BIDD IV 12/25/24 06:00 12/25/24 15:09 DC Doxycycline Hyclate 100 ml @ 50 mls/hr Q12HR IV 12/25/24 09:00 12/25/24 11:24 Furosemide (Lasix Injection) 80 mg Q8HR IV 12/25/24 22:00 Nifedipine (Procardia Xl (Time-Release)) 60 mg DAILY PO 12/26/24 10:00 Review of Systems Noncontributory Vital Signs Vital Signs Date Time Temp Pulse Resp B/P (MAP) Pulse Ox O2 Delivery O2 Flow Rate FiO2 12/25/24 09:00 97.3 79 17 134/66 (88) 98 97.3 12/25/24 08:00 Room Air* 0 21 Physical Exam Moderately built and nourished male moderate distress because of the chronic nausea vomiting HEENT examination no pallor neck Lungs Clear Cardiovascular unremarkable Abdomen is soft in the dialysis catheter there are peritoneal dialysis mild fullness no rigidity no guarding cosmetic Extremities edema Labs/Diagnostic Data Labs Test 12/25/24 11:14 12/24/24 03:23 12/23/24 22:25 12/23/24 19:24 Range/Units POC Glucose 105 70-106 mg/dl White Blood Count 6.7 4.4-10.8 10^3/uL Red Blood Count 3.26 L 4.5-5.90 10^6/uL Hemoglobin 10.0 L 13.5-17.5 g/dL Hematocrit 29.7 L 41.0-53.0 % Mean Corpuscular Volume 91.2 80.0-100.0 fL Mean Corpuscular Hemoglobin 30.6 28.0-32.0 pg Mean Corpuscular Hemoglobin Concent 33.6 32.0-36.0 g/dL Red Cell Distribution Width 14.9 H 11.8-14.3 % Platelet Count 216 140-450 10^3/uL Mean Platelet Volume 8.9 6.9-10.8 fL Neutrophils (%) (Auto) 59.3 37.0-80.0 % Lymphocytes (%) (Auto) 20.0 10.0-50.0 % Monocytes (%) (Auto) 13.5 H 0.0-12.0 % Eosinophils (%) (Auto) 6.1 0.0-7.0 % Basophils (%) (Auto) 1.1 0.0-2.0 % Neutrophils # (Auto) 3.9 1.6-8.6 10 ^3/uL Lymphocytes # (Auto) 1.3 0.4-5.4 10 ^3/uL Monocytes # (Auto) 0.9 0-1.3 10 ^3/uL Eosinophils # (Auto) 0.4 0-0.8 10 ^3/uL Basophils # (Auto) 0.1 0-0.2 10 ^3/uL Nucleated Red Blood Cells 0.1 % Sodium Level 135 L 136-145 mmol/L Potassium Level 4.5 3.5-5.1 mmol/L Chloride Level 99 98-107 mmol/L Carbon Dioxide Level 21 20-31 mmol/L Anion Gap 15 5-15 Blood Urea Nitrogen 86 *H 9-23 mg/dL Creatinine 15.23 *H 0.700-1.30 mg/dL Glomerular Filtration Rate Calc 4 >90 mL/min BUN/Creatinine Ratio 5.6 L 10.0-20.0 Serum Glucose 171 #H 74-106 mg/dL Hemoglobin A1c 8.4 H <5.7 % A1C Calcium Level 7.5 L 8.7-10.4 mg/dL Magnesium Level 2.5 1.6-2.6 mg/dL Parathyroid Hormone (Intact) 490.6 H 18.4-80.1 pg/mL Troponin I High Sensitivity 53 </=54 ng/L Phosphorus Level 9.1 H 2.4-5.1 mg/dL B-Type Natriuretic Peptide 2160.90 0-100 pg/mL Assessment Old with a history of diabetes or insulin hypotension anemia end-stage renal disease on dialysis now admitted with persistent nausea vomiting lesion as [facility] and signed out AMA and has come in now has got pain medications on marijuana physical examination showed some abdomen is soft the tenderness in the epigastrium no rigidity no guarding clinical impression is possible intractable nausea vomiting with diabetes possible gastroparesis but possibility of candidiasis or other pathology can not be excluded with a constant gagging retching as well as discomfort for swallowing Plan/Recommendation Recommend EGD evaluation And further treatment including if necessary for candidiasis We will follow hemoglobin closely treat with PPIs in the meantime Plan discussed with: Patient CHIQUITA BOO MD Dec 25, 2024 15:33
[2024-12-25 17:23] VITALS: TEMP 97.9
[2024-12-25 19:18] LABS: INR 1.04 (0.9-1.15); Partial Thromboplastin Time 29.1 SEC (24.5-34.5); Prothrombin Time 11.0 sec (9.3-11.8)
[2024-12-25 20:00] VITALS: PULSE 90; PULSE 92; RESP 18; O2SAT 100
[2024-12-25 20:55] VITALS: BP 166/99; PULSE 92; RESP 18; O2SAT 100
[2024-12-25] MEDS: FUROSEMIDE 100 MG/10ML VIAL IV SCH (22:03)
[2024-12-25] MEDS: hydrALAZINE HCL 20 MG/ML VL IV PRN (22:13)
[2024-12-26 08:00] VITALS: PULSE 98
--- NOTE | 2024-12-26 08:08 | DVHPN2 ---
Reviewed: Care Plan, H&P, Labs, Medications, Previous Orders, Radiology Changes from previous H/P or p: No Changes Eyes: No Pain, No Vision change, No Conjunctivae inflammation, No Eyelid inflammation, No Other, No Redness ENT: No Ear pain, No Ear discharge, No Nose pain, No Nose discharge, No Nose congestion, No Mouth pain, No Mouth swelling, No Throat pain, No Throat swelling, No Other Cardiovascular: No Chest Pain, No Palpitations, No Orthopnea, No Paroxysmal Noc. Dyspnea, No Edema, No Lt Headedness, No Other Respiratory: Shortness of breath Gastrointestinal: Nausea, Vomiting, Abdominal Pain Genitourinary: No Dysuria, No Frequency, No Incontinence, No Hematuria, No Retention; Other (Scrotal swelling) Musculoskeletal: No other, No neck pain, No shoulder pain, No arm pain, No back pain, No hand pain, No leg pain, No foot pain Skin: No Rash, No Lesions, No Jaundice, No Bruising, No Other Objective Vitals Vital Signs Date Time Temp Pulse Resp B/P (MAP) Pulse Ox O2 Delivery O2 Flow Rate FiO2 12/26/24 05:50 185/116 12/25/24 22:00 92 12/25/24 20:55 18 100 12/25/24 20:00 Room Air* 0 21 12/25/24 17:23 97.9 97.9 Intake/Output Intake and Output 12/26/24 07:00 Intake Total 525 ml Output Total 1000 ml Balance -475 ml Intake Oral 425 ml IV Total 100 ml Output Urine Total 1000 ml Medications Current Medications Medications Dose Ordered Sig/Kiran Route Start Time Stop Time Status Last Admin Dose Admin Nitroglycerin 0.4 mg Q5MINP PRN SL 12/23/24 22:00 Sodium Bicarbonate 650 mg TID PO 12/23/24 22:00 12/24/24 22:37 650 MG Atorvastatin Calcium 20 mg HS PO 12/23/24 22:00 12/24/24 22:37 20 MG Carvedilol 6.25 mg Q12HR PO 12/23/24 22:00 12/24/24 09:46 6.25 MG Hydralazine HCl 50 mg Q8HR PO 12/23/24 22:00 12/25/24 06:27 50 MG Pantoprazole Sodium 40 mg DAILY PO 12/24/24 10:00 12/24/24 09:46 40 MG Diagnostic Test (Pha) 1 strip Q6HR 12/24/24 00:00 12/26/24 05:41 1 STRIP Insulin Human Regular Q6HR SC 12/24/24 00:00 12/24/24 21:46 20 UNITS Dextrose 50 ml UD PRN IV 12/23/24 22:00 12/25/24 05:49 50 ML Insulin Glargine 40 units HS SC 12/24/24 22:00 12/24/24 21:44 40 UNITS Sevelamer HCl 800 mg TIDWM PO 12/24/24 08:00 12/25/24 17:37 800 MG Ondansetron HCl 4 mg Q6HPRN PRN IV 12/24/24 02:30 12/25/24 02:17 4 MG Acetaminophen 650 mg Q4HP PRN PO 12/24/24 05:45 12/25/24 15:28 650 MG Acetaminophen/ Hydrocodone Bitart 1 tab Q4HPRN PRN PO 12/24/24 05:45 Hold Clonidine HCl 0.2 mg Q6HP PRN PO 12/24/24 12:30 Hydralazine HCl 10 mg Q6HP PRN IV 12/24/24 13:00 12/26/24 05:38 10 MG Doxycycline Hyclate 100 ml @ 50 mls/hr Q12HR IV 12/25/24 09:00 12/25/24 22:21 50 MLS/HR Furosemide 80 mg Q8HR IV 12/25/24 22:00 12/26/24 05:38 80 MG Nifedipine 60 mg DAILY PO 12/26/24 10:00 Laboratory Results Laboratory Tests 12/24/24 03:23 Coagulation Test 12/25/24 17:26 Prothrombin Time 11.0 sec (9.3-11.8) Prothrombin Time INR 1.04 (0.9-1.15) Activated Partial Thromboplast Time 29.1 SEC (24.5-34.5) Labs and/or images reviewed: Labs reviewed by me, Image(s) reviewed by me Assessment/Plan Assessment/Plan Intractable nausea and vomiting likely due to gastroparesis: Pantoprazole, Reglan, KUB x-ray negative, CT abdomen pelvis without contrast shows moderate right pleural effusion, GI consult for Dr. Marline fonseca,, planning for EGD today ESRD on peritoneal dialysis , nephrology consult appreciated patient do peritoneal dialysis and to get the machine from home per Nephrology Non ST-elevation type 2 [place] Anemia of chronic disease Anasarca Accelerated hypertension Uncontrolled type 1 diabetes: Insulin sliding scale A1c 8.5 Hyperkalemia due to ESRD Mild hyponatremia Hyperlipidemia Secondary hyperparathyroidism of renal origin Hyperphosphatemia Weakness Scrotal edema possibly secondary to ESRD: Left epididymitis: doxycycline 100 mg IV b.i.d. Patient is extremely noncompliant with the treatment Nehrologist Dr Lopez spoke to me about the noncompliance of the patient Patient refused hemodialysis and wants to do hemodialysis by himself with cycler Patient recently left AMA from [facility] Time taken 70 minutes Advanced care planning time 20 minutes Prognosis very poor because of patient's noncompliance Plan discussed with: Patient My Orders Orders - MARIA MELARA MD Procedure Category Date Status Time Doxycycline PHA 12/25/24 In Process 100mg/100ml 09:00 Date of Service: Dec 26, 2024 Billing Provider: MARIA MELARA MD Common Visit Codes: [id number] CARE 30-74 MIN MARIA MELARA MD Dec 26, 2024 08:08
[2024-12-26 09:00] VITALS: BP 186/115; PULSE 99; RESP 16; O2SAT 97
--- NOTE | 2024-12-26 09:48 | DVHPN2 ---
Progress Note - Dictate Date Seen: Dec 26, 2024 Medical Necessity Reason Pt with a Central, PICC or Fol: No Subjective Patient did undergo peritoneal dialysis for 9 hours yesterday. Scheduled for EGD today. vital signs Vital Sign Date Time Temp Pulse Resp B/P (MAP) Pulse Ox O2 Delivery O2 Flow Rate FiO2 12/26/24 09:00 99 16 186/115 (138) 97 12/26/24 08:00 Room Air* 0 21 12/25/24 17:23 97.9 97.9 Total Intake and Output 12/25/24 12/25/24 12/26/24 15:00 23:00 07:00 Intake Total 100 ml 125 ml 300 ml Output Total 0 ml 1000 ml Balance 100 ml 125 ml -700 ml medications Current Medications Medications Dose Ordered Sig/Kiran Route Start Time Stop Time Status Last Admin Dose Admin Nitroglycerin 0.4 mg Q5MINP PRN SL 12/23/24 22:00 Sodium Bicarbonate 650 mg TID PO 12/23/24 22:00 12/24/24 22:37 650 MG Atorvastatin Calcium 20 mg HS PO 12/23/24 22:00 12/24/24 22:37 20 MG Carvedilol 6.25 mg Q12HR PO 12/23/24 22:00 12/24/24 09:46 6.25 MG Hydralazine HCl 50 mg Q8HR PO 12/23/24 22:00 12/25/24 06:27 50 MG Pantoprazole Sodium 40 mg DAILY PO 12/24/24 10:00 12/24/24 09:46 40 MG Diagnostic Test (Pha) 1 strip Q6HR 12/24/24 00:00 12/26/24 05:41 1 STRIP Insulin Human Regular Q6HR SC 12/24/24 00:00 12/24/24 21:46 20 UNITS Dextrose 50 ml UD PRN IV 12/23/24 22:00 12/25/24 05:49 50 ML Insulin Glargine 40 units HS SC 12/24/24 22:00 12/24/24 21:44 40 UNITS Sevelamer HCl 800 mg TIDWM PO 12/24/24 08:00 12/25/24 17:37 800 MG Ondansetron HCl 4 mg Q6HPRN PRN IV 12/24/24 02:30 12/25/24 02:17 4 MG Acetaminophen 650 mg Q4HP PRN PO 12/24/24 05:45 12/25/24 15:28 650 MG Acetaminophen/ Hydrocodone Bitart 1 tab Q4HPRN PRN PO 12/24/24 05:45 Hold Clonidine HCl 0.2 mg Q6HP PRN PO 12/24/24 12:30 Hydralazine HCl 10 mg Q6HP PRN IV 12/24/24 13:00 12/26/24 05:38 10 MG Doxycycline Hyclate 100 ml @ 50 mls/hr Q12HR IV 12/25/24 09:00 12/26/24 08:56 50 MLS/HR Furosemide 80 mg Q8HR IV 12/25/24 22:00 12/26/24 05:38 80 MG Nifedipine 60 mg DAILY PO 12/26/24 10:00 objective Patient alert. HEENT: Periorbital edema decreased Lungs: Diminished breath sounds at bases CVS: S1, S2 regular rate rhythm Abdomen: Soft, bowel sounds present [employer]: No focal deficits Extremities: Edema present laboratory and microbiology Laboratory Tests 12/24/24 03:23 Test 12/24/24 03:23 Range/Units Serum Glucose 171 #H 74-106 mg/dL Problem List End-stage kidney disease on peritoneal dialysis Anasarca Persistent nausea and vomiting secondary to diabetic gastroparesis Type 1 diabetes Accelerated hypertension Anemia in chronic kidney disease Hyperlipidemia Secondary hyperparathyroidism of renal origin Hyperphosphatemia Assessment/Plan Scheduled for EGD today. Again discussed with the patient compliance with the treatments. Lasix was increased to 80 mg IV t.i.d. Patient does stable from renal standpoint to be discharged after EGD Again discussed with the patient about hemodialysis which he has been refused Dietary Evaluation Review Comments: 1. Nephrology consult for dialysis potocol , 2. CCHO-45g, Protein 80g Renal Diet Expected Outcomes/Goals: controlled Peritoneal dialysis regimen, free from fluid retention Plan discussed with: Patient KATIE NAPIER MD Dec 26, 2024 09:48
[2024-12-26 10:59] LABS: Hematocrit 29.0 % (41.0-53.0); Hemoglobin 9.6 g/dL (13.5-17.5); Mean Corpuscular Hemoglobin 30.2 pg (28.0-32.0); Mean Corpuscular Volume 91.5 fL (80.0-100.0); Nucleated Red Blood Cells % 0.0 %
[2024-12-26] MEDS ORDERED: ONDANSETRON HCL 4 MG/2 ML VIAL ONE (11:14)
[2024-12-26] MEDS ORDERED: LIDOCAINE 2% (LOCAL ANESTH.) PF 5ml SDV ONE (11:14)
[2024-12-26] MEDS ORDERED: PROPOFOL 10 MG/ML 20 ML IV ONE (11:14)
[2024-12-26 11:16] LABS: Albumin 3.5 g/dL (3.2-4.8); Anion Gap 16 (5-15); BUN/Creatinine Ratio 5.4 (10.0-20.0); Carbon Dioxide 21 mmol/L (20-31); Total Protein 5.8 g/dL (5.7-8.2)
[2024-12-26 11:30] LABS: Alanine Aminotransferase 42 U/L (7-40); Alkaline Phosphatase 224 U/L (46-116); Bilirubin, Total 0.2 mg/dL (0.2-1.0); Calcium 7.9 mg/dL (8.7-10.4); Chloride 97 mmol/L (98-107); Glucose 260 mg/dL (74-106); Potassium 5.3 mmol/L (3.5-5.1); Sodium 134 mmol/L (136-145)
[2024-12-26 11:33] LABS: Blood Urea Nitrogen 88 mg/dL (9-23)
--- NOTE | 2024-12-26 11:51 | DVHOP2 ---
Operative Report DATE OF PROCEDURE: 12/26/24 INDICATIONS FOR THE PROCEDURE: Abdominal pain persistent nausea vomiting intractable with a history of diabetes PROCEDURE PERFORMED: 1. Esophagogastroduodenoscopy with cold biopsy forceps POSTOPERATIVE DIAGNOSIS: Small hiatal hernia Esophagitis of the distal esophagus with superficial ulcerations and erosions suggestive of severe esophagitis LA classification C no strictures no bleeding Gastroparesis severe with gastritis in the distal antrum No pyloric obstruction INFORMED CONSENT: The risks and benefits and alternatives were explained to the patient and informed consent was obtained. PROCEDURE IN DETAIL: The patient was kept NPO after midnight. In the endoscopy room, he was given MAC to get him sedated. Olympus gastroscope was passed through the oropharynx into the stomach and the duodenum, and the findings were as follows. Esophagus: 1 cm Hhiatal hernia Severe erosive esophagitis in the distal esophagus with superficial ulcerations and erosions no bleeding biopsies taken with cold biopsy forceps No Esophageal stricture Stomach: Fundus: Gastric stasis with gastroparesis Body and antrum Mild antral gastritis in the distal antrum biopsies taken with cold biopsy forceps Pylorus normal Duodenum Normal ENDOSCOPIC IMPRESSION: Small hiatal hernia Esophagitis of the distal esophagus with superficial ulcerations and erosions suggestive of severe esophagitis LA classification C no strictures no bleeding Gastroparesis severe with gastritis in the distal antrum No pyloric obstruction SUGGESTIONS: Await the biopsy results Aggressive control of the diabetes Treat with PPIs Further treatment and Workup depending upon the pathology results Thank you Dr. Horan With warm regards, CHIQUITA HORAN MD Dec 26, 2024 11:51
[2024-12-26 17:00] VITALS: BP 133/86; PULSE 90; RESP 18; TEMP 97.7; O2SAT 100
[2024-12-26 20:00] VITALS: PULSE 78
[2024-12-26 21:00] VITALS: BP 107/64; PULSE 74; RESP 18; TEMP 98.7; O2SAT 96
[2024-12-27 05:00] VITALS: BP 115/70; PULSE 73; RESP 18; TEMP 98.4; O2SAT 95
[2024-12-27 08:05] VITALS: PULSE 87
[2024-12-27] MEDS ORDERED: SUCR1TAB31 PO (08:11)
[2024-12-27] MEDS ORDERED: PANT40T PO (08:11)
[2024-12-27] MEDS ORDERED: ZOFR4T PO (08:12)
--- NOTE | 2024-12-27 08:15 | DVHPN2 ---
Reviewed: Care Plan, H&P, Labs, Medications, Previous Orders, Radiology Changes from previous H/P or p: No Changes Eyes: No Pain, No Vision change, No Conjunctivae inflammation, No Eyelid inflammation, No Other, No Redness ENT: No Ear pain, No Ear discharge, No Nose pain, No Nose discharge, No Nose congestion, No Mouth pain, No Mouth swelling, No Throat pain, No Throat swelling, No Other Cardiovascular: No Chest Pain, No Palpitations, No Orthopnea, No Paroxysmal Noc. Dyspnea, No Edema, No Lt Headedness, No Other Respiratory: Shortness of breath Gastrointestinal: Nausea, Vomiting, Abdominal Pain Genitourinary: No Dysuria, No Frequency, No Incontinence, No Hematuria, No Retention; Other (Scrotal swelling) Musculoskeletal: No other, No neck pain, No shoulder pain, No arm pain, No back pain, No hand pain, No leg pain, No foot pain Skin: No Rash, No Lesions, No Jaundice, No Bruising, No Other Objective Vitals Vital Signs Date Time Temp Pulse Resp B/P (MAP) Pulse Ox O2 Delivery O2 Flow Rate FiO2 12/27/24 06:50 115/70 12/27/24 05:00 98.4 73 18 95 98.4 12/26/24 20:00 Room Air* 0 21 Intake/Output Intake and Output 12/27/24 07:00 Intake Total 1760 ml Output Total 400 ml Balance 1360 ml Intake Oral 1560 ml IV Total 200 ml Output Urine Total 400 ml Medications Current Medications Medications Dose Ordered Sig/Kiran Route Start Time Stop Time Status Last Admin Dose Admin Nitroglycerin 0.4 mg Q5MINP PRN SL 12/23/24 22:00 Sodium Bicarbonate 650 mg TID PO 12/23/24 22:00 12/27/24 06:43 650 MG Atorvastatin Calcium 20 mg HS PO 12/23/24 22:00 12/26/24 21:34 20 MG Carvedilol 6.25 mg Q12HR PO 12/23/24 22:00 12/26/24 12:14 6.25 MG Hydralazine HCl 50 mg Q8HR PO 12/23/24 22:00 12/27/24 06:35 50 MG Pantoprazole Sodium 40 mg DAILY PO 12/24/24 10:00 12/24/24 09:46 40 MG Diagnostic Test (Pha) 1 strip Q6HR 12/24/24 00:00 12/27/24 06:50 1 STRIP Insulin Human Regular Q6HR SC 12/24/24 00:00 12/26/24 12:47 12 UNITS Dextrose 50 ml UD PRN IV 12/23/24 22:00 12/25/24 05:49 50 ML Insulin Glargine 40 units HS SC 12/24/24 22:00 12/24/24 21:44 40 UNITS Sevelamer HCl 800 mg TIDWM PO 12/24/24 08:00 12/25/24 17:37 800 MG Ondansetron HCl 4 mg Q6HPRN PRN IV 12/24/24 02:30 12/25/24 02:17 4 MG Acetaminophen 650 mg Q4HP PRN PO 12/24/24 05:45 12/26/24 21:54 650 MG Acetaminophen/ Hydrocodone Bitart 1 tab Q4HPRN PRN PO 12/24/24 05:45 Hold Clonidine HCl 0.2 mg Q6HP PRN PO 12/24/24 12:30 Hydralazine HCl 10 mg Q6HP PRN IV 12/24/24 13:00 12/26/24 05:38 10 MG Doxycycline Hyclate 100 ml @ 50 mls/hr Q12HR IV 12/25/24 09:00 12/26/24 21:17 50 MLS/HR Furosemide 80 mg Q8HR IV 12/25/24 22:00 12/27/24 06:50 80 MG Nifedipine 60 mg DAILY PO 12/26/24 10:00 12/26/24 12:15 60 MG Laboratory Results Laboratory Tests 12/26/24 10:44 Chemistry Test 12/26/24 10:44 Albumin 3.5 g/dL (3.2-4.8) Calcium Level 7.9 mg/dL (8.7-10.4) L Total Protein 5.8 g/dL (5.7-8.2) LFT Test 12/26/24 10:44 Alanine Aminotransferase (ALT) 42 U/L (7-40) H Alkaline Phosphatase 224 U/L (46-116) H Aspartate Amino Transferase (AST) 42 U/L (13-40) H Total Bilirubin 0.2 mg/dL (0.2-1.0) Labs and/or images reviewed: Labs reviewed by me, Image(s) reviewed by me Assessment/Plan Assessment/Plan Intractable nausea and vomiting : Pantoprazole, Reglan, KUB x-ray negative, CT abdomen pelvis without contrast shows moderate right pleural effusion, Severe esophagitis and moderate gastritis with gastroparesis by EGD by Dr. Horan on 12/26/2024. Biopsy result Pending ESRD on peritoneal dialysis , nephrology consult appreciated patient do peritoneal dialysis and to get the machine from home per Nephrology Non ST-elevation type 2 [place] Anemia of chronic disease Anasarca Accelerated hypertension Uncontrolled type 1 diabetes: Insulin sliding scale A1c 8.5 Hyperkalemia due to ESRD Mild hyponatremia Hyperlipidemia Secondary hyperparathyroidism of renal origin Hyperphosphatemia Weakness Scrotal edema possibly secondary to ESRD: Left epididymitis: doxycycline 100 mg IV b.i.d. Patient is extremely noncompliant with the treatment Nehrologist Dr Lopez spoke to me about the noncompliance of the patient Patient refused hemodialysis and wants to do peritoneal dialysis by himself with cycler Patient recently left AMA from [facility] recently Time taken 55 minutes Advanced care planning time 20 minutes Discussed with the patient about discharge plan and he agrees Plan discussed with: Patient Date of Service: Dec 27, 2024 Billing Provider: MARIA MELARA MD Common Visit Codes: [id number] INP/OBS CARE(HIGH) MARIA MELARA MD Dec 27, 2024 08:15
--- NOTE | 2024-12-27 08:22 | DVHDS2 ---
Discharge Summary Date of Admission Dec 23, 2024 at 21:54 Date of Discharge: Dec 27, 2024 Admitting Diagnosis Intractable nausea and vomiting Wounds: EGD Labs/Diagnostic Data: Laboratory Results Test 12/27/24 06:46 12/26/24 10:44 12/25/24 17:26 12/24/24 03:23 POC Glucose > 600 mg/dl (70-106) White Blood Count 7.2 10^3/uL (4.4-10.8) Red Blood Count 3.17 10^6/uL (4.5-5.90) Hemoglobin 9.6 g/dL (13.5-17.5) Hematocrit 29.0 % (41.0-53.0) Mean Corpuscular Volume 91.5 fL (80.0-100.0) Mean Corpuscular Hemoglobin 30.2 pg (28.0-32.0) Mean Corpuscular Hemoglobin Concent 33.0 g/dL (32.0-36.0) Red Cell Distribution Width 14.5 % (11.8-14.3) Platelet Count 230 10^3/uL (140-450) Mean Platelet Volume 8.7 fL (6.9-10.8) Neutrophils (%) (Auto) 64.1 % (37.0-80.0) Lymphocytes (%) (Auto) 20.9 % (10.0-50.0) Monocytes (%) (Auto) 10.8 % (0.0-12.0) Eosinophils (%) (Auto) 2.8 % (0.0-7.0) Basophils (%) (Auto) 1.4 % (0.0-2.0) Neutrophils # (Auto) 4.6 10 ^3/uL (1.6-8.6) Lymphocytes # (Auto) 1.5 10 ^3/uL (0.4-5.4) Monocytes # (Auto) 0.8 10 ^3/uL (0-1.3) Eosinophils # (Auto) 0.2 10 ^3/uL (0-0.8) Basophils # (Auto) 0.1 10 ^3/uL (0-0.2) Nucleated Red Blood Cells 0.0 % Sodium Level 134 mmol/L (136-145) Potassium Level 5.3 mmol/L (3.5-5.1) Chloride Level 97 mmol/L (98-107) Carbon Dioxide Level 21 mmol/L (20-31) Anion Gap 16 (5-15) Blood Urea Nitrogen 88 mg/dL (9-23) Creatinine 16.40 mg/dL (0.700-1.30) Glomerular Filtration Rate Calc 4 mL/min (>90) BUN/Creatinine Ratio 5.4 (10.0-20.0) Serum Glucose 260 mg/dL (74-106) Calcium Level 7.9 mg/dL (8.7-10.4) Total Bilirubin 0.2 mg/dL (0.2-1.0) Aspartate Amino Transferase (AST) 42 U/L (13-40) Alanine Aminotransferase (ALT) 42 U/L (7-40) Alkaline Phosphatase 224 U/L (46-116) Total Protein 5.8 g/dL (5.7-8.2) Albumin 3.5 g/dL (3.2-4.8) Prothrombin Time 11.0 sec (9.3-11.8) Prothrombin Time INR 1.04 (0.9-1.15) Activated Partial Thromboplast Time 29.1 SEC (24.5-34.5) Vitamin D 25-Hydroxy 22.6 ng/mL (30.0-100) Hemoglobin A1c 8.4 % A1C (<5.7) Magnesium Level 2.5 mg/dL (1.6-2.6) Parathyroid Hormone (Intact) 490.6 pg/mL (18.4-80.1) Test 12/23/24 22:25 12/23/24 19:24 Troponin I High Sensitivity 53 ng/L (</=54) Phosphorus Level 9.1 mg/dL (2.4-5.1) B-Type Natriuretic Peptide 2160.90 pg/mL (0-100) Other Laboratory Tests 12/26/24 10:44 Brief Hx & Hospital Course: 59-year-old male with a ESRD on peritoneal dialysis anemia of chronic disease hypertension type 1 diabetes hyperlipidemia secondary hyperparathyroidism hyperphosphatemia noncompliant recently left AMA from [facility] came in to [facility] and admitted for intractable nausea and vomiting. EGD showed severe esophagitis and gastritis with a gastroparesis seen by GI Dr. Horan placed on pantoprazole and Carafate biopsy result pending. 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 He was noncompliant with the care with the nurses. He did peritoneal dialysis from his cycler which he brought from home. For the 1st few days he refused peritoneal dialysis and Dr. Lopez advised hemodialysis which he also refused. Patient also had a swelling of the scrotum found to have left epididymitis treated with the doxycycline At the time of discharge vital signs are stable. Patient agrees with the discharge plan. Discharged home prescription for pantoprazole Carafate doxycycline and Zofran transmitted to the pharmacy. Reviewed all other home medications. He will follow up with the Nephrology for dialysis and with the GI Dr. Horan for the biopsy result and this primary Dr general condition poor and patient is extremely noncompliant Consults/Reason for consult Nephrology Dr. Lopez GI Dr. Horan Operations or Procedures EGD Peritoneal dialysis Condition at Discharge: Fair Final Diagnosis/Problems List Intractable nausea and vomiting : Pantoprazole, Reglan, KUB x-ray negative, CT abdomen pelvis without contrast shows moderate right pleural effusion, Severe esophagitis and moderate gastritis with gastroparesis by EGD by Dr. Horan on 12/26/2024. Biopsy result Pending ESRD on peritoneal dialysis , nephrology consult appreciated patient do peritoneal dialysis and to get the machine from home per Nephrology Non ST-elevation type 2 [place] Anemia of chronic disease Anasarca Accelerated hypertension Uncontrolled type 1 diabetes: Insulin sliding scale A1c 8.5 Hyperkalemia due to ESRD Mild hyponatremia Hyperlipidemia Secondary hyperparathyroidism of renal origin Hyperphosphatemia Weakness Scrotal edema possibly secondary to ESRD: Left epididymitis: doxycycline 100 mg IV b.i.d. Patient is extremely noncompliant with the treatment Nehrologist Dr Lopez spoke to me about the noncompliance of the patient Patient refused hemodialysis and wants to do peritoneal dialysis by himself with cycler Patient recently left AMA from [facility] recently Discharge Disposition: Home Discharge Instruct/Medications Diet: Renal Activity: Light activity Follow Up/Referral: Resume all your previous home medications Use new medications as prescribed Follow up with Dr. Lopez in for your dialysis Follow up with the GI Dr. Horan in 10 days for the biopsy result Follow up with your primary dr Medications: Pantoprazole Carafate Transmitted to [facility]'s Scheduled Amlodipine Besylate (Norvasc Tablet), 10 MG PO DAILY Atorvastatin Calcium (Atorvastatin Calcium), 20 MG PO HS Atorvastatin Calcium (Atorvastatin Calcium), 20 MG PO HS Carvedilol (Carvedilol), 1 TAB PO BID, (Reported) Carvedilol (Coreg), 6.25 MG PO Q12HR Ergocalciferol (Vitamin D), 1 CAP PO QWEEKLY, (Reported) Furosemide (Furosemide), 40 MG PO BIDD Gabapentin (Gabapentin), 100 MG PO TID Hydralazine HCl (Hydralazine HCl), 50 MG PO Q8HR Hydralazine Hcl (Hydralazine Hcl), 1 TAB PO QID, (Reported) Hydralazine Hcl (Hydralazine Hcl), 100 MG PO TID, (Reported) Insulin Glargine (Lantus), 20 UNITS SC DAILY Insulin Lispro (Human) (Humalog), 0 SC AC VIA SLIDING SCALE, (Reported) Metoprolol Tartrate (Lopressor Tablet), 50 MG PO BID Nifedipine (Nifedipine Er), 90 MG PO DAILY Nystatin (Mouth-Throat) (Mycostatin (Mouth-Throat)), 5 ML MT QID Pantoprazole Sodium Sesquihydr (Pantoprazole Sodium), 40 MG PO DAILY Pantoprazole Sodium Sesquihydr (Pantoprazole Sodium), 40 MG PO DAILY Pantoprazole Sodium Sesquihydr (Pantoprazole Sodium), 40 MG PO BID Rifaximin (Xifaxan), 400 MG PO TID Sodium Bicarbonate (Sodium Bicarbonate), 650 MG PO BID Sucralfate (Carafate Susp), 1 GM GT QID@0600,1130,1700,2200 Sucralfate (Carafate), 1 GM PO QID Scheduled PRN Acetaminophen (Acetaminophen), 650 MG PO Q6HPRN PRN Alum & Mag Hydrox-Simethicone (Gi Cocktail), 30 ML PO Q6HP PRN Furosemide (Furosemide), 20 MG PO BID PRN, (Reported) Ondansetron Odt 4MG Tab (Zofran Po), 4 MG PO QID PRN Miscellaneous Medications Insulin Glargine (Lantus), SC, (Reported) Insulin Lispro (Insulin Lispro), SC, (Reported) Insulin Lispro (Human) (Humalog), 100 UNIT SC, (Reported) Durable Medical Equipment Continuous Blood Glucose Syste (Dexcom G6 Sensor), UD, (Reported), (DME) Continuous Blood Glucose Syste (Dexcom G6 Transmitter), UD, (Reported), (DME) 45 (Time taken for discharge summary 45 minutes) Discharge Statement: "Patient was advised to return to the ER or call 911 if any headaches, dizziness, shortness of breath, chest pain, abdominal pain, bleeding, fevers, or worsening of medical condition. Patient was counseled about treatment plan, medications, possible side effects, patientverbalized understanding. All questions were answered to the best of my ability. This discharge took greater then 30 minutes in planning, reviewing documentation, counseling the patient, and discussing with other team members." ASSESSMENT ASSESSMENT Hospital Course Improved Assessment Intractable nausea and vomiting : Pantoprazole, Reglan, KUB x-ray negative, CT abdomen pelvis without contrast shows moderate right pleural effusion, Severe esophagitis and moderate gastritis with gastroparesis by EGD by Dr. Horan on 12/26/2024. Biopsy result Pending ESRD on peritoneal dialysis , nephrology consult appreciated patient do peritoneal dialysis and to get the machine from home per Nephrology Non ST-elevation type 2 [place] Anemia of chronic disease Anasarca Accelerated hypertension Uncontrolled type 1 diabetes: Insulin sliding scale A1c 8.5 Hyperkalemia due to ESRD Mild hyponatremia Hyperlipidemia Secondary hyperparathyroidism of renal origin Hyperphosphatemia Weakness Scrotal edema possibly secondary to ESRD: Left epididymitis: doxycycline 100 mg IV b.i.d. Patient is extremely noncompliant with the treatment Nehrologist Dr Lopez spoke to me about the noncompliance of the patient Patient refused hemodialysis and wants to do peritoneal dialysis by himself with cycler Patient recently left AMA from [facility] recently Date of Service: Dec 27, 2024 Billing Provider: MARIA MELARA MD Common Visit Codes: 56144-EPO/OBS DISCH DAY >30min MARIA MELARA MD Dec 27, 2024 08:22
[2024-12-27] MEDS ORDERED: DOXY100C79 PO (08:23)
[2024-12-27 11:49] VITALS: BP 150/87; PULSE 95; RESP 20; TEMP 98.3; O2SAT 97
--- NOTE | 2024-12-27 14:08 | DVHPN2 ---
Progress Note - Dictate Date Seen: Dec 27, 2024 Medical Necessity Reason Pt with a Central, PICC or Fol: No Subjective Continues to be May better no nausea no vomiting today No Hematemesis vital signs Vital Sign Date Time Temp Pulse Resp B/P (MAP) Pulse Ox O2 Delivery O2 Flow Rate FiO2 12/27/24 11:49 98.3 95 20 97 12/27/24 10:43 150/87 12/27/24 08:05 Room Air* 0 21 Total Intake and Output 12/26/24 12/26/24 12/27/24 15:00 23:00 07:00 Intake Total 100 ml 960 ml 700 ml Output Total 400 ml 0 ml Balance 100 ml 560 ml 700 ml medications Current Medications Medications Dose Ordered Sig/Kiran Route Start Time Stop Time Status Last Admin Dose Admin Nitroglycerin 0.4 mg Q5MINP PRN SL 12/23/24 22:00 Sodium Bicarbonate 650 mg TID PO 12/23/24 22:00 12/27/24 06:43 650 MG Atorvastatin Calcium 20 mg HS PO 12/23/24 22:00 12/26/24 21:34 20 MG Carvedilol 6.25 mg Q12HR PO 12/23/24 22:00 12/27/24 10:43 6.25 MG Hydralazine HCl 50 mg Q8HR PO 12/23/24 22:00 12/27/24 06:35 50 MG Pantoprazole Sodium 40 mg DAILY PO 12/24/24 10:00 12/27/24 10:40 40 MG Diagnostic Test (Pha) 1 strip Q6HR 12/24/24 00:00 12/27/24 12:00 1 STRIP Insulin Human Regular Q6HR SC 12/24/24 00:00 12/26/24 12:47 12 UNITS Dextrose 50 ml UD PRN IV 12/23/24 22:00 12/25/24 05:49 50 ML Insulin Glargine 40 units HS SC 12/24/24 22:00 12/24/24 21:44 40 UNITS Sevelamer HCl 800 mg TIDWM PO 12/24/24 08:00 12/27/24 13:02 800 MG Ondansetron HCl 4 mg Q6HPRN PRN IV 12/24/24 02:30 12/25/24 02:17 4 MG Acetaminophen 650 mg Q4HP PRN PO 12/24/24 05:45 12/26/24 21:54 650 MG Acetaminophen/ Hydrocodone Bitart 1 tab Q4HPRN PRN PO 12/24/24 05:45 Hold Clonidine HCl 0.2 mg Q6HP PRN PO 12/24/24 12:30 Hydralazine HCl 10 mg Q6HP PRN IV 12/24/24 13:00 12/26/24 05:38 10 MG Doxycycline Hyclate 100 ml @ 50 mls/hr Q12HR IV 12/25/24 09:00 12/26/24 21:17 50 MLS/HR Furosemide 80 mg Q8HR IV 12/25/24 22:00 12/27/24 06:50 80 MG Nifedipine 60 mg DAILY PO 12/26/24 10:00 12/27/24 10:39 60 MG objective Abdomen is soft no tenderness no rigidity no guarding laboratory and microbiology Laboratory Tests 12/26/24 10:44 Test 12/26/24 10:44 Range/Units Serum Glucose 260 H 74-106 mg/dL Assessment/Plan Old with a history of diabetes or insulin hypotension anemia end-stage renal disease on dialysis now admitted with persistent nausea vomiting lesion as [facility] and signed out AMA and has come in now has got pain medications on marijuana physical examination showed some abdomen is soft the tenderness in the epigastrium no rigidity no guarding clinical impression is possible intractable nausea vomiting with diabetes possible gastroparesis And EGD done yesterday which showed severe erosive esophagitis. And some Kinesio CV gastroparesis with gastric stasis Small frequent meal also await the biopsy results and further workup and treatment depending upon the biopsy results biopsies show some atypical infection may need treatment for the same thank you for asking me to take part in the [employer] Dietary Evaluation Review Comments: 1. Nephrology consult for dialysis potocol , 2. CCHO-45g, Protein 80g Renal Diet Expected Outcomes/Goals: controlled Peritoneal dialysis regimen, free from fluid retention Plan discussed with: Patient CHIQUITA BOO MD Dec 27, 2024 14:08
== END 2024-12-27 16:52 | disposition home or self-care (01) | DRG 420 ==
LOC: ER 18:06 → OVERFLOW 21:54 → TELE-WESTW 12-24 04:10 → TELE-CENTR 12-24 23:07
PROVIDERS: ADMIT Family Medicine; ATTEND Family Medicine
PROC: 0DB78ZX Excision of Stomach, Pylorus, Via Natural or Artificial Opening Endoscopic, Diagnostic (ICD-10-PCS; 2024-12-26)
PROC: 0DB38ZX Excision of Lower Esophagus, Via Natural or Artificial Opening Endoscopic, Diagnostic (ICD-10-PCS; principal; 2024-12-26 11:13)
DX: E11.10 Type 2 diabetes mellitus with ketoacidosis without coma (principal); I21.A1 Myocardial infarction type 2; I12.0 Hypertensive chronic kidney disease with stage 5 chronic kidney disease or end stage renal disease; E83.39 Other disorders of phosphorus metabolism; D63.1 Anemia in chronic kidney disease; K29.70 Gastritis, unspecified, without bleeding; E87.1 Hypo-osmolality and hyponatremia; K31.84 Gastroparesis; N18.6 End stage renal disease; N25.81 Secondary hyperparathyroidism of renal origin; J90 Pleural effusion, not elsewhere classified; K20.90 Esophagitis, unspecified without bleeding; E87.70 Fluid overload, unspecified; F17.210 Nicotine dependence, cigarettes, uncomplicated; E78.5 Hyperlipidemia, unspecified; N45.1 Epididymitis; K44.9 Diaphragmatic hernia without obstruction or gangrene; E87.5 Hyperkalemia; Z99.2 Dependence on renal dialysis; Z88.0 Allergy status to penicillin; Z79.2 Long term (current) use of antibiotics; Z79.4 Long term (current) use of insulin; Z79.899 Other long term (current) drug therapy; Z83.3 Family history of diabetes mellitus; Z82.49 Family history of ischemic heart disease and other diseases of the circulatory system; E11.22 Type 2 diabetes mellitus with diabetic chronic kidney disease; E11.65 Type 2 diabetes mellitus with hyperglycemia; E11.43 Type 2 diabetes mellitus with diabetic autonomic (poly)neuropathy
CPT/HCPCS: 36415; 43239; 71045; 74021; 74176; 76870; 80048; 80053; 82306; 82962; 83036; 83735; 83880; 83970; 84100; 84484; 85025; 85610; 85730; 86850; 86900; 86901; 96374; 96375; 99291; G0378; J1815; J2003; J2405; J2704

== ENCOUNTER 2025-04-19 09:39 | Emergency (ER) | payer MEDICAID ==
[~2025-04-19] VITALS: Ht 175.3 cm; Wt 69.5 kg
[~2025-04-19 09:39] MED LIST changes: +DOXY100C79 PO; +SUCR1TAB31 PO; +ZOFR4T PO
[2025-04-19] MEDS: HYDROcodone-ACET 10/325MG TAB PO ONE (11:00)
--- NOTE | 2025-04-19 11:07 | ED.PDOC ---
History of Present Illness HPI Comments 29M presents to the ER w/ prior MHx of ESRD, DM, High Lipids, HTN and the c/c of penile pain. Pt reports on having discoloration on the head of his penis w/ no bleeding for the past week. Pt went to [facility] where he was given/prescribed pain meds. Pt came to the ER today due from stating that he is unable to get his pain meds until at 1700 today and he is in sever pain. Pt is requesting pain medications until he can pick his prescribed meds up. Denies any other symptoms at this time. Denies chills, fever, N/V/D, SOB, CP. Denies any other associated symptom's, modifiers, or recent injuries or sick contact at this time. Chief Complaint: Penile Problem Time Seen by MD: 11:05 Primary Care Provider: JOSELITO Reviewed Notes: Nurses Notes, Medications, Allergies Allergies: Coded Allergies: Amoxicillin (Verified Allergy, Unknown, 05/09/14) Clavulanic Acid (Verified Allergy, Unknown, 05/09/14) Penicillins (Verified Allergy, Unknown, 01/20/15) Home Meds Active Scripts Doxycycline (Monohydrate) (Doxycycline) 100 Mg Cap, 100 MG PO BID, #20 CAP Prov:MARIA MELARA MD 12/27/24 Ondansetron Odt 4MG Tab (ZOFRAN PO) 4 Mg Tb, 4 MG PO QID PRN, #30 TAB ODT TAB-DISSOLVE IN MOUTH, THEN SWALLOW Prov:MARIA MELARA MD 12/27/24 Sucralfate (CARAFATE) 1 Gm Tab, 1 GM PO QID, #120 TAB Prov:MARIA MELARA MD 12/27/24 Pantoprazole Sodium Sesquihydr (Pantoprazole Sodium) 40 Mg Tab, 40 MG PO BID, #60 TAB Prov:MARIA MELARA MD 12/27/24 Alum & Mag Hydrox-Simethicone (Gi Cocktail) 55 Ml Ss, 30 ML PO Q6HP PRN for 30 Days, #120 ML Prov:JEREMY POPE RESIDENT 05/14/24 Pantoprazole Sodium Sesquihydr (Pantoprazole Sodium) 40 Mg Tab, 40 MG PO DAILY for 30 Days, #30 TAB Prov:JEREMY POPE RESIDENT 05/14/24 Metoprolol Tartrate (LOPRESSOR TABLET) 50 Mg Tb, 50 MG PO BID for 30 Days, #60 TAB Prov:[facility] 05/14/24 Furosemide (Furosemide) 40 Mg Tab, 40 MG PO BIDD for 30 Days, #60 TAB Prov:[facility] 05/14/24 Atorvastatin Calcium (ATORVASTATIN CALCIUM) 20 Mg Tab, 20 MG PO HS for 30 Days, #30 TAB Prov:[facility] 05/14/24 Amlodipine Besylate (NORVASC TABLET) 5 Mg Tb, 10 MG PO DAILY for 30 Days, #60 TAB Prov:[facility] 05/14/24 Sucralfate (CARAFATE SUSP) 1 Gm/10 Ml Ss, 1 GM GT QID@0600,1130,1700,2200 for 30 Days, #200 ML Prov:[facility] 03/06/24 Sodium Bicarbonate (Sodium Bicarbonate) 650 Mg Tab, 650 MG PO BID for 30 Days, #60 TAB Prov:[facility] 03/06/24 Rifaximin (Xifaxan) 550 Mg Tab, 400 MG PO TID for 30 Days, #66 TAB Prov:[facility] 03/06/24 Pantoprazole Sodium Sesquihydr (Pantoprazole Sodium) 40 Mg Tab, 40 MG PO DAILY for 30 Days, #30 TAB Prov:[facility] 03/06/24 Nystatin (Mouth-Throat) (Mycostatin (Mouth-Throat)) 500,000 Units/5 Ml Ss, 5 ML MT QID for 30 Days, #30 ML Prov:[facility] 03/06/24 Nifedipine (Nifedipine Er) 30 Mg Tab, 90 MG PO DAILY for 30 Days, #90 TAB Prov:[facility] 03/06/24 Insulin Glargine (Lantus) 100 Unit/Ml Inj, 20 UNITS SC DAILY for 30 Days, #10 INJ Prov:[facility] 03/06/24 Hydralazine HCl (Hydralazine HCl) 25 Mg Tab, 50 MG PO Q8HR for 30 Days, #180 TAB Prov:[facility] 03/06/24 Gabapentin (Gabapentin) 100 Mg Cap, 100 MG PO TID for 30 Days, #90 CAP Prov:JEREMY POPE 03/06/24 Carvedilol (COREG) 3.125 Mg Tab, 6.25 MG PO Q12HR for 30 Days, #120 TAB Prov:JEREMY POPE 03/06/24 Atorvastatin Calcium (ATORVASTATIN CALCIUM) 20 Mg Tab, 20 MG PO HS for 30 Days, #30 TAB Prov:JEREMY POPE 03/06/24 Acetaminophen (Acetaminophen) 325 Mg Tab, 650 MG PO Q6HPRN PRN for 10 Days, #80 TAB Prov:JEREMY POPE 03/06/24 Reported Medications Insulin Lispro (Human) (Humalog) 100 Unit/Ml Inj, 100 UNIT SC, INJ 05/09/24 Furosemide (Furosemide) 20 Mg Tab, 20 MG PO BID PRN 04/16/24 Hydralazine Hcl (Hydralazine Hcl) 100 Mg Tab, 100 MG PO TID 04/16/24 Ergocalciferol (Vitamin D) 50,000 Unit Cap, 1 CAP PO QWEEKLY 12/27/23 Carvedilol (Carvedilol) 6.25 Mg Tab, 1 TAB PO BID 12/27/23 Insulin Lispro (Insulin Lispro) 100 Unit/Ml Inj, SC 06/06/23 Insulin Glargine (Lantus) 100 Unit/Ml Inj, SC 06/06/23 Hydralazine Hcl (Hydralazine Hcl) 50 Mg Tab, 1 TAB PO QID 06/06/23 Continuous Blood Glucose Syste (Dexcom G6 Transmitter) 1 Mis Mis, UD 06/06/23 Continuous Blood Glucose Syste (Dexcom G6 Sensor) 1 Mis Mis, UD 06/06/23 Insulin Lispro (Human) (Humalog) 100 Unit/Ml Inj, 0 SC AC VIA SLIDING SCALE 07/26/20 Information Source: Patient Mode of Arrival: Ambulatory Severity: Moderate Timing: Days Duration: Since onset, Days Prehospital treatment: None Past Medical History PAST MEDICAL HISTORY: DM, ESRD, High Lipids, HTN Surgical History: Denies all surgeries Family History Family History: Reviewed,noncontributory to illness, Unknown Social History Smoker: Unknown Alcohol: Unknown Drugs: Unknown Lives In: Home Constitutional: denies: chills, diaphoresis, fatigue, fever, malaise, sweats, weakness, others EENTM: denies: blurred vision, double vision, ear bleeding, ear discharge, ear drainage, ear pain, ear ringing, eye pain, eye redness, hearing loss, mouth pain, mouth swelling, nasal discharge, nose bleeding, nose congestion, nose pain, photophobia, tearing, throat pain, throat swelling, voice changes, others Respiratory: denies: cough, hemoptysis, orthopnea, SOB at rest, shortness of breath, SOB with excertion, stridor, wheezing, others Cardiovascular: denies: chest pain, dizzy spells, diaphoresis, Dyspnea on exertion, edema, irregular heart beat, left arm pain, lightheadedness, p alpitations, PND, syncope, others Gastrointestinal: denies: abdomen distended, abdominal pain, blood streaked bowels, constipated, diarrhea, dysphagia, difficulty swallowing, hematemesis, melena, nausea, poor appetite, poor fluid intake, rectal bleeding, rectal pain, vomiting, others Genitourinary: reports: pain (penile); denies: burning, dysuria, flank pain, frequency, hematuria, incontinence, penile discharge, penile sore, testicle pain, testicle swelling, urgency, others Neurological: denies: dizziness, fainting, headache, left sided numbness, left sided weakness, numbness, paresthesia, pre-existing deficit, right sided numbness, right sided weakness, seizure, speech problems, tingling, tremors, weakness, others Musculoskeletal: denies: back pain, gout, joint pain, joint swelling, muscle pain, muscle stiffness, neck pain, others Integumetry: denies: bruises, change in color, change in hair/nails, dryness, laceration, lesions, lumps, rash, wounds, others Allergic/Immunocompromised: denies: Difficulty Healing, Frequent Infections, Hives, Itching, others Hematologic/Lymphatic: denies: anemia, blood clots, easy bleeding, easy bruising, swollen glands, others Endocrine: denies: excessive hunger, excessive sweating, excessive thirst, excessive urination, flushing, intolerance to cold, intolerance to heat, unexplained weight gain, unexplained weight loss, others Psychiatric: denies: anxiety, bipolar disorder, depression, hopeless, panic disorder, schizophrenia, sleepless, suicidal, others All Other Systems: Reviewed and Negative Physical Exam General Appearance: Moderate Distress, Normal HEENT: Normal ENT Inspection, Pharynx Normal, TMs Normal Neck: Full Range of Motion, Non-Tender, Normal, Normal Inspection Respiratory: Chest Non-Tender, Lungs Clear, No Accessory Muscle Use, No Respiratory Distress, Normal Breath Sounds Cardiovascular: No Edema, No JVD, No Murmur, No Gallop, Normal Peripheral Pulses, Regular Rate/Rhythm Breast Exam: Deferred Gastrointestinal: No Organomegaly, Non Tender, No Pulsatile Mass, Normal Bowel Sounds, Soft Genitalia: Deferred Pelvic: Deferred Rectal: Deferred Extremities: No calf tenderness, Normal capillary refill, Normal inspection, Normal range of motion, Non-tender, No pedal edema Musculoskeletal : Apperance: Normal Neurologic: Alert, medical social worker II-XII nml as Tested, No Motor Deficits, Normal Affect, Normal Mood, No Sensory Deficits Cerebellar Function: Normal Reflexes: Normal Skin: Dry, Pallor, Warm, Wounds (Glands penis) Peripheral Pulses: 3+ Radial (R), 3+ Radial (L) Lymphatic: No Adenopathy Was a procedure done? Was a procedure done?: No Differential Dx Considerations may include: Chronic kidney disease on dialysis. Electrolyte imbalance X-Ray, Labs, Meds, VS Vital Signs Date Time Temp Pulse Resp B/P (MAP) Pulse Ox O2 Delivery O2 Flow Rate FiO2 04/19/25 12:36 98.6 76 19 170/89 (116) 96 98.6 04/19/25 12:36 76 19 96 Room Air 04/19/25 09:40 99.1 110 18 164/96 96 99.1 Lab Test 04/19/25 11:17 Range/Units White Blood Count 15.0 H 4.4-10.8 10^3/uL Red Blood Count 2.80 L 4.5-5.90 10^6/uL Hemoglobin 8.0 L 13.5-17.5 g/dL Hematocrit 25.0 L 41.0-53.0 % Mean Corpuscular Volume 89.2 80.0-100.0 fL Mean Corpuscular Hemoglobin 28.5 28.0-32.0 pg Mean Corpuscular Hemoglobin Concent 31.9 L 32.0-36.0 g/dL Red Cell Distribution Width 15.7 H 11.8-14.3 % Platelet Count 334 140-450 10^3/uL Mean Platelet Volume 8.4 6.9-10.8 fL Neutrophils (%) (Auto) 77.4 37.0-80.0 % Lymphocytes (%) (Auto) 8.5 L 10.0-50.0 % Monocytes (%) (Auto) 11.2 0.0-12.0 % Eosinophils (%) (Auto) 1.5 0.0-7.0 % Basophils (%) (Auto) 1.4 0.0-2.0 % Neutrophils # (Auto) 11.6 H 1.6-8.6 10 ^3/uL Lymphocytes # (Auto) 1.3 0.4-5.4 10 ^3/uL Monocytes # (Auto) 1.7 H 0-1.3 10 ^3/uL Eosinophils # (Auto) 0.2 0-0.8 10 ^3/uL Basophils # (Auto) 0.2 0-0.2 10 ^3/uL Nucleated Red Blood Cells 0.0 % Sodium Level 133 L 136-145 mmol/L Potassium Level 4.9 3.5-5.1 mmol/L Chloride Level 95 L 98-107 mmol/L Carbon Dioxide Level 26 20-31 mmol/L Anion Gap 12 5-15 Blood Urea Nitrogen 51 H 9-23 mg/dL Creatinine 15.24 *H 0.700-1.30 mg/dL Glomerular Filtration Rate Calc 4 >90 mL/min BUN/Creatinine Ratio 3.3 L 10.0-20.0 Serum Glucose 68 L 74-106 mg/dL Calcium Level 9.2 8.7-10.4 mg/dL Total Bilirubin < 0.2 L 0.2-1.0 mg/dL Aspartate Amino Transferase (AST) 60 H 13-40 U/L Alanine Aminotransferase (ALT) 33 7-40 U/L Alkaline Phosphatase 364 H 46-116 U/L Total Protein 7.5 5.7-8.2 g/dL Albumin 4.1 3.2-4.8 g/dL Current Medications Medications (Trade) Dose Ordered Sig/Kiran Route Start Time Stop Time Status Last Admin Acetaminophen/ Hydrocodone Bitart (Ronald 10/325MG Tab) 1 tab ONCE ONCE PO 04/19/25 10:45 04/19/25 10:46 DC 04/19/25 11:00 Piperacillin Sod/ Tazobactam Sod 100 ml @ 100 mls/hr ONCE ONCE IV 04/19/25 12:15 04/19/25 13:14 DC 04/19/25 12:53 Patient alert. Vitals stable. Came in because of lesion on the penis. Answering questions. He is in severe pain. Chronic kidney function. He does get hemodialysis. Was given pain medication. Leading WBC elevated. Was given Zosyn. Urology consultation. Explained to the patient. Continue to monitor. Time of 1ST Reevaluation: 11:35 Reevaluation 1ST: Unchanged Patient Education/Counseling: Diagnosis, Treatment, Prognosis Family Education/Counseling: No Family Present SEPSIS Sepsis Screen Date sepsis recognized/suspect: Apr 19, 2025 Time Sepsis recognized/suspect: 939 Recent Procedure: No On Antibiotic Therapy: No Respiratory Rate >20: No Heart Rate >90: Yes Temp<36 C (96.8 F) or >38.3 C: No SBP <90 or MAP <65 mmHG: No New Acute Mental Status Change: No Is the patient on CPAP, BIPAP,: No Physician Orders * Urology Consult (04/19/25 10:41) Vital Signs Date Time Temp Pulse Resp B/P (MAP) Pulse Ox O2 Delivery O2 Flow Rate FiO2 04/19/25 12:36 98.6 76 19 170/89 (116) 96 98.6 04/19/25 12:36 76 19 96 Room Air 04/19/25 09:40 99.1 110 18 164/96 96 99.1 Laboratory Tests Test 04/19/25 11:17 White Blood Count 15.0 10^3/uL (4.4-10.8) H Medications Medications Dose Ordered Sig/Kiran Route Start Time Stop Time Status Last Admin Dose Admin Acetaminophen/ Hydrocodone Bitart 1 tab ONCE ONCE PO 04/19/25 10:45 04/19/25 10:46 DC 04/19/25 11:00 Piperacillin Sod/ Tazobactam Sod 100 ml @ 100 mls/hr ONCE ONCE IV 04/19/25 12:15 04/19/25 13:14 DC 04/19/25 12:53 Departure 1 Departure Time of Disposition: 13:42 Impression: Primary Impression: Chronic kidney disease on chronic dialysis Additional Impressions: Sepsis, unspecified organism Qualified Codes: A41.9 - Sepsis, unspecified organism Infection of penis Disposition: ADMITTED INPATIENT Admit to: Med Surg Condition: Guarded Critical Care Note Critical Care Time?: No Stability Stability form required: No Heart Score Heart Score: Heart Score Response (Comments) Value History N/A 0 EKG N/A 0 Age N/A 0 Risk Factors N/A 0 Troponin N/A 0 Total 0 I personally scribed for VENU ASHLEY MD ([email or web address]) on 04/19/25 at 11:07. Electronically submitted by Rk Childers (Chlorine GenieA). I personally scribed for VENU ASHLEY MD ([email or web address]) on 04/19/25 at 11:07. Electronically submitted by Rk Childers (Chlorine GenieA). VENU ASHLEY MD Apr 19, 2025 11:07
[2025-04-19 11:28] LABS: Hematocrit 25.0 % (41.0-53.0); Hemoglobin 8.0 g/dL (13.5-17.5); Mean Corpuscular Hemoglobin 28.5 pg (28.0-32.0); Mean Corpuscular Volume 89.2 fL (80.0-100.0); Nucleated Red Blood Cells % 0.0 %
[2025-04-19 11:43] LABS: Alanine Aminotransferase 33 U/L (7-40); Albumin 4.1 g/dL (3.2-4.8); Anion Gap 12 (5-15); BUN/Creatinine Ratio 3.3 (10.0-20.0); Calcium 9.2 mg/dL (8.7-10.4); Carbon Dioxide 26 mmol/L (20-31); Potassium 4.9 mmol/L (3.5-5.1); Total Protein 7.5 g/dL (5.7-8.2)
[2025-04-19 11:45] LABS: Blood Urea Nitrogen 51 mg/dL (9-23); Chloride 95 mmol/L (98-107); Glucose 68 mg/dL (74-106); Sodium 133 mmol/L (136-145)
[2025-04-19 11:48] LABS: Alkaline Phosphatase 364 U/L (46-116)
[2025-04-19 11:49] LABS: Bilirubin, Total < 0.2 mg/dL (0.2-1.0)
[2025-04-19 12:36] VITALS: BP 170/89; PULSE 76; RESP 19; TEMP 98.6; O2SAT 96
[2025-04-19] MEDS: PIPERACILLIN-TAZOB 3.375GM 100 ML IV ONE (12:53)
== END 2025-04-19 15:29 | disposition left against medical advice (07) ==
LOC: ER 09:39
DX: A41.9 Sepsis, unspecified organism (principal); I12.0 Hypertensive chronic kidney disease with stage 5 chronic kidney disease or end stage renal disease; E11.22 Type 2 diabetes mellitus with diabetic chronic kidney disease; N18.6 End stage renal disease; N48.29 Other inflammatory disorders of penis; E78.5 Hyperlipidemia, unspecified; Z79.899 Other long term (current) drug therapy; Z79.4 Long term (current) use of insulin; Z88.0 Allergy status to penicillin; Z99.2 Dependence on renal dialysis
CPT/HCPCS: 36415; 80053; 85025; 96365; 99284; J2543